=== PATIENT | male | born 1950 | race Caucasian/White ===

== ENCOUNTER → 2017-03-15 | Outpatient (CLI) | payer OTHER ==
[~2017-03-15] VITALS: Ht 180.3 cm; Wt 110.1 kg
[2017-03-15 14:55] VITALS: BP 143/84; PULSE 69; Ht 180.3 cm; Wt 110.1 kg
== END | disposition home or self-care (01) ==
LOC: C.NEUR 14:20
PROVIDERS: ATTEND Internal Medicine Pulmonary Disease
DX: G47.33 Obstructive sleep apnea (adult) (pediatric) (principal); I10 Essential (primary) hypertension; R05 Cough

== ENCOUNTER → 2017-06-20 | Outpatient (CLI) | payer BC ==
[2017-06-20 13:55] LABS: BASO % 0.8 %; BASO ABS # 0.05 K/uL (0-0.2); EOS % 2.7 %; EOS ABS # 0.17 K/uL (0-0.5); HEMOGLOBIN 16.3 g/dL (14.0-18.0); IG# 0.07 K/uL (0.00-0.02); LYMPH % 30.2 %; LYMPH ABS # 1.93 K/uL (1.2-3.4); MEAN CELL VOLUME 96.6 fL (80-100); MEAN CORPUSCULAR HGB CONC 36.2 g/dl (32-36); MEAN PLATELET VOLUME 11.4 fL (7.4-10.4); MONO % 9.7 %; MONO ABS # 0.62 K/uL (0.11-0.59); NEUT % 55.5 %; NEUT ABS # 3.56 K/uL (1.4-6.5); PLATELET COUNT 183 K/uL (130-400); RED CELL DISTRIBUTION WIDTH CV 12.9 % (11.5-14.5); RED CELL DISTRIBUTION WIDTH SD 44.4 fL (36.4-46.3)
[2017-06-20 14:34] LABS: HEMOGLOBIN A1C 5.8 % (4.5-5.6)
[2017-06-20 15:00] LABS: ALT/SGPT 72 U/L (12-78); AST/SGOT 26 U/L (15-37); BLOOD UREA NITROGEN 20 mg/dl (7-18); CALCIUM 8.8 mg/dl (8.5-10.1); CARBON DIOXIDE 28 mmol/L (21-32); CREATININE 1.14 mg/dl (0.60-1.40); GLUCOSE 142 mg/dl (70-99); POTASSIUM 3.5 mmol/L (3.5-5.1); SODIUM 137 mmol/L (136-145)
[2017-06-20 15:10] LABS: ALKALINE PHOSPHATASE 40 U/L (45-117); CHOLESTEROL 182 mg/dl (0-200); LDL CHOLESTEROL CALCULATED 105 mg/dl; TOTAL PROTEIN 7.6 gm/dl (6.4-8.2)
== END | disposition home or self-care (01) ==
LOC: C.LABBC 09:27
PROVIDERS: ATTEND Internal Medicine
DX: Z12.5 Encounter for screening for malignant neoplasm of prostate (principal); I10 Essential (primary) hypertension; E78.1 Pure hyperglyceridemia; R73.01 Impaired fasting glucose; G47.33 Obstructive sleep apnea (adult) (pediatric)

== ENCOUNTER → 2017-07-12 | Outpatient (CLI) | payer BC ==
[2017-07-12 13:15] LABS: BASO % 0.9 %; BASO ABS # 0.05 K/uL (0-0.2); EOS % 3.9 %; EOS ABS # 0.21 K/uL (0-0.5); HEMATOCRIT 44.2 % (42-52); HEMOGLOBIN 16.1 g/dL (14.0-18.0); IG# 0.02 K/uL (0.00-0.02); LYMPH % 35.2 %; LYMPH ABS # 1.88 K/uL (1.2-3.4); MEAN CELL VOLUME 95.1 fL (80-100); MEAN CORPUSCULAR HEMOGLOBIN 34.6 pg (25-34); MEAN CORPUSCULAR HGB CONC 36.4 g/dl (32-36); MEAN PLATELET VOLUME 11.1 fL (7.4-10.4); MONO % 9.2 %; MONO ABS # 0.49 K/uL (0.11-0.59); NEUT % 50.4 %; NEUT ABS # 2.69 K/uL (1.4-6.5); PLATELET COUNT 182 K/uL (130-400); RED CELL DISTRIBUTION WIDTH CV 12.5 % (11.5-14.5); RED CELL DISTRIBUTION WIDTH SD 42.7 fL (36.4-46.3); WHITE BLOOD COUNT 5.34 K/uL (4.8-10.8)
[2017-07-12 13:57] LABS: HEMOGLOBIN A1C 5.7 % (4.5-5.6)
[2017-07-12 14:09] LABS: ALBUMIN 4.2 gm/dl (3.4-5.0); ALT/SGPT 58 U/L (12-78); BLOOD UREA NITROGEN 17 mg/dl (7-18); CALCIUM 9.2 mg/dl (8.5-10.1); CARBON DIOXIDE 28 mmol/L (21-32); CHOLESTEROL 150 mg/dl (0-200); CREATININE 1.04 mg/dl (0.60-1.40); GLUCOSE 133 mg/dl (70-99); POTASSIUM 3.6 mmol/L (3.5-5.1); SODIUM 135 mmol/L (136-145)
[2017-07-12 14:14] LABS: ALKALINE PHOSPHATASE 39 U/L (45-117); AST/SGOT 27 U/L (15-37); LDL CHOLESTEROL CALCULATED 84 mg/dl; TOTAL PROTEIN 7.3 gm/dl (6.4-8.2)
== END | disposition home or self-care (01) ==
LOC: C.LABBC 09:33
PROVIDERS: ATTEND Internal Medicine
DX: G47.33 Obstructive sleep apnea (adult) (pediatric) (principal); I10 Essential (primary) hypertension; R73.01 Impaired fasting glucose; E78.1 Pure hyperglyceridemia; Z12.5 Encounter for screening for malignant neoplasm of prostate; N52.9 Male erectile dysfunction, unspecified

== ENCOUNTER 2019-12-14 13:01 | Inpatient (IN) ==
[2019-12-14] MEDS ORDERED: VANCOMYCIN CONSULT ACTIVE PRN (15:12)
[2019-12-14] MEDS ORDERED: VANCOMYCIN HCL 2,000 MG in SODIUM CHLORIDE 0.9% 500 ML IV ONE (15:12)
[2019-12-14] MEDS ORDERED: SODIUM CHLORIDE 0.9% 1000ML 2,000 ML IV ONE (15:14)
--- NOTE | 2019-12-14 15:21 | Emergency Department Note ---
History of Present Illness General Chief complaint: Skin Problem Stated complaint: ABCESS ON BACK History of Present Illness This patient is a 69-year-old male who presents the emergency department ambulatory for evaluation of pain, redness, swelling and drainage from the back that he noticed 2 days ago. He was seen in urgent care. He was told that this was likely an abscess. He was put on Keflex, which she has been taking for the last day with no improvement. He is also felt febrile. He did not take his temperature at home. He has not been taking anything for discomfort. Tetanus shot is up-to-date. He denies any systemic symptoms such as nausea or vomiting. No headache. No body aches. Home Medications Home Medications Medication Instructions Recorded Confirmed Type lisinopril 20 mg tablet 20 mg PO BID #180 tab 01/22/19 12/14/19 Rx cetirizine 10 mg capsule 10 mg PO DAILY PRN #90 cap 04/20/19 12/14/19 History epinephrine 0.3 mg/0.3 mL 0.3 mg IM Q10M PRN #2 ea 05/04/19 12/14/19 Rx injection, auto-injector amlodipine 5 mg tablet 5 mg PO DAILY #90 tab 09/14/19 12/14/19 Rx indapamide 1.25 mg tablet 1.25 mg PO DAILY #90 tab 09/14/19 12/14/19 Rx atorvastatin 10 mg tablet 10 mg PO DAILY #90 tab 10/02/19 12/14/19 Rx ceftriaxone 1 gm IV DAILY #12 ea 12/18/19 Rx Allergies Allergy/AdvReac Type Severity Reaction Status Date / Time Penicillins Allergy hives (?) Verified 12/14/19 15:00 sulfamethoxazole AdvReac Intermediate SEVERE GI Verified 12/14/19 15:00 [From Bactrim] UPSET trimethoprim [From Bactrim] AdvReac Intermediate SEVERE GI Verified 12/14/19 15:00 UPSET Past Med/Surg History Medical History Bilateral inguinal hernia Diverticulosis Eczema Hypertension Hypertriglyceridemia Hypertriglyceridemia Obstructive sleep apnea Surgical History H/O Achilles tendon repair H/O cataract removal with insertion of prosthetic lens Family History Uncle Myocardial infarction Mother , age 60 Breast cancer Diverticulitis Cancer Hypertension Pancreatic neoplasm Father , age 39 Cancer Prostate cancer Social History Preferred Language: Arabic Communication Ability: Effective Visual Impairment: No Limitations Hearing Ability: Normal Video Poker Floorman Required: No Beliefs That Will Affect Care: None marital status: Current Living Situation: Spouse current occupational status: retired Feels Safe at Home: Yes Smoking Status: Never smoker Hx Alcohol Use: Yes Alcohol type: beer and hard liquor Hx Substance Use: No Childhood Exposure to Second-Hand Smoke: Yes caffeine: Yes Dental Care, Regularly: Yes Physical Activity Frequency: Daily Seatbelt Use: always Sunscreen Use: Yes Review of Systems A total of 10 systems reviewed and were otherwise negative Physical Exam Vital Signs Vital Signs - 24 hr 12/14/19 13:03 12/14/19 14:35 Temperature 38.8 C H Temperature Source Oral Pulse Rate 94 H Pulse Rate [Apical] 88 Respiratory Rate 20 18 Respiratory Effort / Characteristics Non-Labored Spontaneous Respiratory Depth Normal Respiratory Pattern Regular Blood Pressure 160/79 H Blood Pressure [Left Arm] 155/89 H Blood Pressure Mean 106 Blood Pressure Mean [Left Arm] 111 Pulse Oximetry 97 97 Oxygen Delivery Method Room Air Room Air Sepsis Recent Fever Within 48 Hours Yes Sepsis Action Taken by Nursing No Action Required Constitutional WD/WN, vitals as above Eyes EOM intact bilaterally ENMT external ear and nose normal, oropharynx normal Neck trachea midline Respiratory normal respiratory effort, lungs clear to auscultation Cardiovascular RRR, no murmur, no edema Gastrointestinal (Abdomen) normal bowel sounds, soft, nontender, no hepatosplenomegaly Musculoskeletal no cyanosis or clubbing, extremities motor strength 5/5 Skin 4 cm area of necrosis noted to the left scapular region with surrounding induration and erythema. No active drainage. Neurologic Alert and oriented x3. No focal motor deficits. Psychiatric Acting appropriately Course Course Patient was seen and examined Vital signs including blood pressure were reviewed medications list was verified with patient Labs were obtained, and a saline lock was established Medications ordered. Imaging performed and reviewed. The patient was updated. He voiced understanding. He was comfortable with the plan. The case was discussed with the hospitalist. They kindly agreed to evaluate the patient for further work-up. Administered Medications Discontinued Medications Acetaminophen (Tylenol) 650 mg PO Q4H PRN PRN Reason: pain/fever Stop: 01/14/20 01:44 Last Admin: 12/15/19 20:33 Dose: 650 mg Documented by: [id number] Admin: 12/15/19 11:07 Dose: 650 mg Documented by: [id number] Admin: 12/15/19 02:07 Dose: 650 mg Documented by: [id number] Atorvastatin Calcium (Lipitor) 10 mg PO DAILY [facility] Stop: 01/14/20 08:59 Last Admin: 12/18/19 08:49 Dose: 10 mg Documented by: [id number] Admin: 12/17/19 09:13 Dose: 10 mg Documented by: [id number] Admin: 12/16/19 08:35 Dose: 10 mg Documented by: [id number] Admin: 12/15/19 08:57 Dose: Not Given Documented by: [id number] Cetirizine HCl (Zyrtec) 10 mg PO NOW ONE Stop: 12/14/19 20:19 Last Admin: 12/14/19 20:24 Dose: 10 mg Documented by: [id number] Cetirizine HCl (Zyrtec) 10 mg PO DAILY PRN PRN Reason: SEASONAL ALLERGIES Stop: 01/14/20 01:44 Last Admin: 12/17/19 21:44 Dose: 10 mg Documented by: [id number] Admin: 12/16/19 21:35 Dose: 10 mg Documented by: [id number] Admin: 12/15/19 22:34 Dose: 10 mg Documented by: [id number] Enoxaparin Sodium (Lovenox) 40 mg SQ QAM [facility] Stop: 01/15/20 15:59 Last Admin: 12/18/19 08:49 Dose: Not Given Documented by: [id number] Admin: 12/17/19 09:13 Dose: 40 mg Documented by: [id number] Admin: 12/16/19 16:38 Dose: 40 mg Documented by: [id number] Vancomycin HCl 2,000 mg/ (Sodium Chloride) 540 mls @ 200 mls/hr IV NOW ONE Stop: 12/14/19 17:53 Last Infusion: 12/14/19 18:48 Dose: 0 mls/hr Documented by: [id number] Admin: 12/14/19 15:50 Dose: 200 mls/hr Documented by: [id number] Sodium Chloride (Nss 1000ml) 2,000 mls @ 999 mls/hr IV .Q2H1M ONE Stop: 12/14/19 17:14 Last Infusion: 12/14/19 18:48 Dose: 0 mls/hr Documented by: [id number] Admin: 12/14/19 15:50 Dose: 999 mls/hr Documented by: [id number] Vancomycin HCl 1,500 mg/ (Sodium Chloride) 530 mls @ 200 mls/hr IV Q12H [facility]; Protocol Stop: 12/22/19 05:59 Last Infusion: 12/15/19 08:14 Dose: 0 mls/hr Documented by: [id number] Admin: 12/15/19 05:34 Dose: 200 mls/hr Documented by: [id number] Aztreonam 2,000 mg/ Dextrose 110 mls @ 100 mls/hr IV Q8H [facility]; Protocol Stop: 12/22/19 01:59 Last Infusion: 12/16/19 02:10 Dose: 0 mls/hr Documented by: [id number] Admin: 12/16/19 01:04 Dose: 100 mls/hr Documented by: [id number] Infusion: 12/15/19 20:03 Dose: 0 mls/hr Documented by: [id number] Admin: 12/15/19 18:36 Dose: 100 mls/hr Documented by: [id number] Infusion: 12/15/19 11:33 Dose: 0 mls/hr Documented by: [id number] Admin: 12/15/19 10:21 Dose: 100 mls/hr Documented by: [id number] Infusion: 12/15/19 04:13 Dose: 0 mls/hr Documented by: [id number] Admin: 12/15/19 03:07 Dose: 100 mls/hr Documented by: [id number] Potassium Chloride/Sodium Chloride (Normal Saline W/20 Meq Kcl) 20 meq in 1,000 mls @ 125 mls/hr IV .Q8H [facility] Stop: 01/14/20 01:59 Last Infusion: 12/16/19 13:28 Dose: 0 mls/hr Documented by: [id number] Admin: 12/16/19 09:58 Dose: 125 mls/hr Documented by: [id number] Infusion: 12/16/19 09:58 Dose: 125 mls/hr Documented by: [id number] Infusion: 12/16/19 06:42 Dose: 125 mls/hr Documented by: [id number] Infusion: 12/16/19 02:10 Dose: 125 mls/hr Documented by: [id number] Infusion: 12/16/19 01:07 Dose: 0 mls/hr Documented by: [id number] Admin: 12/16/19 01:04 Dose: 125 mls/hr Documented by: [id number] Infusion: 12/16/19 01:04 Dose: 125 mls/hr Documented by: [id number] Admin: 12/15/19 18:36 Dose: 125 mls/hr Documented by: [id number] Infusion: 12/15/19 18:36 Dose: 125 mls/hr Documented by: [id number] Infusion: 12/15/19 14:34 Dose: 125 mls/hr Documented by: [id number] Admin: 12/15/19 11:03 Dose: 125 mls/hr Documented by: [id number] Infusion: 12/15/19 11:03 Dose: 125 mls/hr Documented by: [id number] Admin: 12/15/19 03:07 Dose: 125 mls/hr Documented by: [id number] Vancomycin HCl 1,500 mg/ (Sodium Chloride) 530 mls @ 200 mls/hr IV Q16H [facility]; Protocol Stop: 12/22/19 21:59 Last Infusion: 12/16/19 15:57 Dose: 0 mls/hr Documented by: [id number] Admin: 12/16/19 14:46 Dose: 200 mls/hr Documented by: [id number] Infusion: 12/16/19 00:49 Dose: 0 mls/hr Documented by: [id number] Admin: 12/15/19 22:10 Dose: 200 mls/hr Documented by: [id number] Cefazolin Sodium (Ancef 2000mg) 2,000 mg in 15 mls @ 3.75 mls/min IV Q8H [facility] Stop: 12/30/19 15:29 Last Admin: 12/18/19 07:34 Dose: 3.75 mls/min Documented by: [id number] Admin: 12/17/19 23:22 Dose: 3.75 mls/min Documented by: [id number] Admin: 12/17/19 15:25 Dose: 3.75 mls/min Documented by: [id number] Admin: 12/17/19 07:38 Dose: 3.75 mls/min Documented by: [id number] Admin: 12/17/19 00:00 Dose: 3.75 mls/min Documented by: [id number] Admin: 12/16/19 16:00 Dose: 3.75 mls/min Documented by: [id number] Ceftriaxone Sodium 2,000 mg/ (Dextrose) 70 mls @ 100 mls/hr IV DAILY [facility]; Protocol Stop: 01/01/20 11:59 Last Infusion: 12/18/19 14:39 Dose: 0 mls/hr Documented by: [id number] Admin: 12/18/19 13:44 Dose: 100 mls/hr Documented by: [id number] Indapamide (Lozol) 1.25 mg PO DAILY [facility] Stop: 01/16/20 08:59 Last Admin: 12/18/19 08:49 Dose: Not Given Documented by: [id number] Admin: 12/17/19 09:12 Dose: Not Given Documented by: [id number] Ioversol (Optiray 320 100ml) 93 ml IV ONCE PRN PRN Reason: Interaction Checking Stop: 12/18/19 17:20 Last Admin: 12/14/19 17:21 Dose: 93 ml Documented by: [id number] Ketorolac Tromethamine (Toradol) 30 mg IV NOW ONE Stop: 12/14/19 20:19 Last Admin: 12/14/19 20:24 Dose: 30 mg Documented by: [id number] Lisinopril (Zestril) 20 mg PO BID [facility] Stop: 01/15/20 20:59 Last Admin: 12/18/19 08:49 Dose: Not Given Documented by: [id number] Admin: 12/17/19 20:43 Dose: 20 mg Documented by: [id number] Admin: 12/17/19 09:12 Dose: Not Given Documented by: [id number] Admin: 12/16/19 21:25 Dose: Not Given Documented by: [id number] Psyllium Hydrophilic Mucilloid (Metamucil) 1 pkt PO QAM [facility] Stop: 01/14/20 10:29 Last Admin: 12/15/19 11:23 Dose: Not Given Documented by: [id number] Psyllium Hydrophilic Mucilloid (Metamucil) 1 pkt PO HS [facility] Stop: 01/14/20 20:59 Last Admin: 12/17/19 20:43 Dose: 1 pkt Documented by: [id number] Admin: 12/16/19 21:25 Dose: 1 pkt Documented by: [id number] Admin: 12/15/19 20:34 Dose: 1 pkt Documented by: [id number] Simethicone (Mylicon) 40 mg PO Q6H PRN PRN Reason: Flatulence Stop: 01/15/20 16:04 Last Admin: 12/17/19 00:00 Dose: 40 mg Documented by: [id number] Admin: 12/16/19 16:38 Dose: 40 mg Documented by: [id number] Medical Decision Making Medical Records Attestation: I reviewed the patient's medical records. Home Medications Current Medication List: was personally reviewed by me Laboratory Data Attestation: I reviewed the patient's lab results. Result diagrams: 12/18/19 05:19 12/18/19 05:19 Lab Results 12/14/19 12/14/19 12/14/19 Range/Units 16:15 16:15 16:15 WBC 12.32 H (4.8-10.8) K/uL RBC 4.83 (4.7-6.1) M/uL Hgb 16.3 (14.0-18.0) g/dL Hct 45.3 (42-52) % MCV 93.8 (80-100) fL MCH 33.7 (25-34) pg MCHC 36.0 (32-36) g/dL RDW Std Deviation 43.0 (36.4-46.3) fL RDW Coeff of Brittnee 12.6 (11.5-14.5) % Plt Count 151 (130-400) K/uL MPV 11.4 H (7.4-10.4) fL Immature Gran % (Auto) 0.3 % Neut % (Auto) 81.6 % Lymph % (Auto) 9.1 % [place] % (Auto) 8.4 % Eos % (Auto) 0.4 % Baso % (Auto) 0.2 % Neut # (Auto) 10.05 H (1.4-6.5) K/uL Lymph # (Auto) 1.12 L (1.2-3.4) K/uL [place] # (Auto) 1.04 H (0.11-0.59) K/uL Eos # (Auto) 0.05 (0-0.5) K/uL Baso # (Auto) 0.02 (0-0.2) K/uL Immature Gran # (Auto) 0.04 H (0.00-0.02) K/uL PT 11.1 (9.0-12.0) Seconds INR 1.1 (0.9-1.1) Sodium 134 L (136-145) mmol/L Potassium 3.3 L (3.5-5.1) mmol/L Chloride 100 (98-107) mmol/L Carbon Dioxide 26 (21-32) mmol/L Anion Gap 8.0 (3-11) BUN 16 (7-18) mg/dl Creatinine 1.17 (0.6-1.4) mg/dl Est Cr Clr Drug Dosing 75.6 ml/min Est GFR ( Amer) 74.3 Est GFR (Non-Af Amer) 64.1 BUN/Creatinine Ratio 13.4 (10-20) Glucose 103 H (70-99) mg/dl Lactate (0.4-2.0) mmol/L Calcium 9.0 (8.5-10.1) mg/dl Total Bilirubin 1.9 H (0.2-1) mg/dl AST 23 (15-37) U/L ALT 51 (12-78) U/L Alkaline Phosphatase 53 (45-117) U/L Total Protein 8.0 (6.4-8.2) gm/dl Albumin 4.2 (3.4-5.0) gm/dl Globulin 3.8 (2.5-4.0) gm/dl Albumin/Globulin Ratio 1.1 (0.9-2) Procalcitonin (0-0.5) ng/ml 12/14/19 12/14/19 Range/Units 16:15 16:26 WBC (4.8-10.8) K/uL RBC (4.7-6.1) M/uL Hgb (14.0-18.0) g/dL Hct (42-52) % MCV (80-100) fL MCH (25-34) pg MCHC (32-36) g/dL RDW Std Deviation (36.4-46.3) fL RDW Coeff of Brittnee (11.5-14.5) % Plt Count (130-400) K/uL MPV (7.4-10.4) fL Immature Gran % (Auto) % Neut % (Auto) % Lymph % (Auto) % [place] % (Auto) % Eos % (Auto) % Baso % (Auto) % Neut # (Auto) (1.4-6.5) K/uL Lymph # (Auto) (1.2-3.4) K/uL [place] # (Auto) (0.11-0.59) K/uL Eos # (Auto) (0-0.5) K/uL Baso # (Auto) (0-0.2) K/uL Immature Gran # (Auto) (0.00-0.02) K/uL PT (9.0-12.0) Seconds INR (0.9-1.1) Sodium (136-145) mmol/L Potassium (3.5-5.1) mmol/L Chloride (98-107) mmol/L Carbon Dioxide (21-32) mmol/L Anion Gap (3-11) BUN (7-18) mg/dl Creatinine (0.6-1.4) mg/dl Est Cr Clr Drug Dosing ml/min Est GFR ( Amer) Est GFR (Non-Af Amer) BUN/Creatinine Ratio (10-20) Glucose (70-99) mg/dl Lactate 1.3 (0.4-2.0) mmol/L Calcium (8.5-10.1) mg/dl Total Bilirubin (0.2-1) mg/dl AST (15-37) U/L ALT (12-78) U/L Alkaline Phosphatase (45-117) U/L Total Protein (6.4-8.2) gm/dl Albumin (3.4-5.0) gm/dl Globulin (2.5-4.0) gm/dl Albumin/Globulin Ratio (0.9-2) Procalcitonin < 0.05 (0-0.5) ng/ml Imaging Data Attestation: I personally reviewed and interpreted this imaging study as follows: Radiologist's Impression: CT thorax with contrast A cutaneous marker has been placed in the left upper back at the site of interest. There is minimal induration of the subcutaneous fat at this site which extends laterally toward the mid axillary region. Correlate clinically for evidence of cellulitis. No organized fluid collection or subcutaneous gas is seen. 2. There is no airspace consolidation or pleural effusion. 3. Hepatic steatosis and cholelithiasis. 4. Additional findings as above. ACT 112: Negative or not required by law. Electronically signed by: Marcell García M.D. 12/14/2019 5:35 PM Dictated: 12/14/[id number] Transcribed: 12/14/[id number] MDM Narrative Differential diagnosis: Cellulitis, abscess, necrosis, insect bite, sepsis, among others This patient is a 69-year-old male who presents the emergency department complaining of pain, induration and redness to the back for the last several days. On exam, he has cellulitis with a central area of necrosis. The area is suspicious for a possible spider bite. The patient did have a fever. Mild leukocytosis noted. I did not feel comfortable sending the patient home as he is already been on Keflex with no response. The patient was in agreement. He will be admitted for IV antibiotics and further treatment. Impression & Plan MSSA bacteremia, Diverticulosis of colon, Spider bite wound Discharge Plan Visit Data *Final* Discharge Date/Time: 12/15/19 01:08 Chief Complaint: Skin Problem Stated Complaint: ABCESS ON BACK ED Provider: Mele Falcon ED Midlevel Provider: Doris Barahona Discharge Problem: MSSA bacteremia, Diverticulosis of colon, Spider bite wound Patient Disposition: Admitted As Inpatient Discharge Instructions Interventions: ED Discharge Assessment Last Done: 12/15/19 01:08
[2019-12-14 16:38] LABS: Basophils # (auto) 0.02 K/uL (0-0.2); Basophils % (auto) 0.2 %; Eosinophils # (auto) 0.05 K/uL (0-0.5); Eosinophils % (auto) 0.4 %; Hematocrit (blood only) 45.3 % (42-52); Hemoglobin 16.3 g/dL (14.0-18.0); Immature Granulocytes # (auto) 0.04 K/uL (0.00-0.02); Immature Granulocytes % (auto) 0.3 %; Lymphocytes # (auto) 1.12 K/uL (1.2-3.4); Lymphocytes % (auto) 9.1 %; Mean Corpuscular Hemoglobin 33.7 pg (25-34); Mean Corpuscular Volume 93.8 fL (80-100); Mean Platelet Volume 11.4 fL (7.4-10.4); Monocytes # (auto) 1.04 K/uL (0.11-0.59); Monocytes % (auto) 8.4 %; Neutrophils # (auto) 10.05 K/uL (1.4-6.5); Neutrophils % (auto) 81.6 %; Platelet Count 151 K/uL (130-400); RDW Coefficient of Variation 12.6 % (11.5-14.5); Red Blood Count 4.83 M/uL (4.7-6.1); White Blood Count 12.32 K/uL (4.8-10.8)
[2019-12-14 16:47] LABS: INR 1.1 (0.9-1.1); Prothrombin Time 11.1 Seconds (9.0-12.0)
[2019-12-14 16:54] LABS: Albumin Level 4.2 gm/dl (3.4-5.0); BUN Creatinine Ratio 13.4 (10-20); Creatinine Clr Calc Pharmacy 75.6 ml/min; Est GFR (African American) 74.3; Est GFR (Non-African American) 64.1; Potassium 3.3 mmol/L (3.5-5.1)
[2019-12-14 16:57] LABS: Albumin Globulin Ratio 1.1 (0.9-2); Bilirubin,Total 1.9 mg/dl (0.2-1); Globulin 3.8 gm/dl (2.5-4.0)
[2019-12-14] MEDS ORDERED: IOVERSOL 100ml IV PRN (17:21)
--- NOTE | 2019-12-14 17:36 | CT Scan Report ---
CT SCAN OF THE CHEST WITH IV CONTRAST CLINICAL HISTORY: Swelling and discoloration in the left upper back. COMPARISON STUDY: No priors. TECHNIQUE: Following the IV administration of 93 cc of Optiray 320, CT scan of the thorax was perform ed from the thoracic inlet to the upper abdomen. Images are reviewed in the axial, sagittal, and emeterio nal planes. IV contrast was administered without complication. A dose lowering technique was utilize d adhering to the principles of ALARA. CT DOSE: 627.75 mGy.cm FINDINGS: Thyroid: Imaged portions of the thyroid gland are normal in size and attenuation. Thoracic aorta: The thoracic aorta is normal in caliber and demonstrates 4-vessel variant arch anatom y. No dissection is seen. Pulmonary vasculature: The pulmonary trunk is normal in caliber. There are no filling defects identif ied in the central pulmonary vessels to indicate pulmonary embolus. Note that this examination was no t protocoled for evaluation of the pulmonary arteries. Heart: The heart is normal in size and without pericardial effusion. Lungs and pleural spaces: Evaluation of the lung parenchyma is modestly degraded by motion artifact. There is no airspace consolidation or pleural effusion. The trachea and central airways are clear. Sc attered calcified granulomas are incidentally noted. Mediastinum: There is no mediastinal lymphadenopathy. Jaylyn: Clear. Axillae: There is no axillary lymphadenopathy. Upper abdomen: There is a small hiatal hernia. A large calcified gallstone is partially visualized. T here is evidence of hepatic steatosis. Skeletal structures: Mild degenerative change is noted in the shoulders and thoracic spine. No lytic or blastic bony lesions are seen. Soft tissues: A cutaneous marker at the site of interest has been placed in the left upper back. Ther e is minimal induration of the subcutaneous fat at this level which extends laterally towards the mid axilla. No subcutaneous gas or organized fluid collection is seen. IMPRESSION: 1. A cutaneous marker has been placed in the left upper back at the site of interest. There is minima l induration of the subcutaneous fat at this site which extends laterally toward the mid axillary reg ion. Correlate clinically for evidence of cellulitis. No organized fluid collection or subcutaneous g as is seen. 2. There is no airspace consolidation or pleural effusion. 3. Hepatic steatosis and cholelithiasis. 4. Additional findings as above. ACT 112: Negative or not required by law. Electronically signed by: Marcell García M.D. 12/14/2019 5:35 PM
[2019-12-14] MEDS ORDERED: CETIRIZINE HCL 10 MG TABLET PO ONE (20:18)
[2019-12-14] MEDS ORDERED: KETOROLAC 30 MG/ML VIAL IV ONE (20:18)
--- NOTE | 2019-12-14 21:13 | History & Physical Report ---
Date of Service December 14, 2019 Assessment & Plan (1) Cellulitis: Cellulitis/central necrosis/spider bite wound/sepsis- Patient with systemic manifestations with elevated temperature, elevated white blood cell count, fatigue and generalized myalgias. Observed heart rate in room by me 106. Skin lesion has all the manifestations of a spider bite. Place on vancomycin IV and aztreonam IV. Acetaminophen 650 mg p.o. every 6 hours PRN mild pain or temperature. Zofran 4 mg IV every 6 hours PRN NSS + KCl 20 mEq at 125 mils per hour Consult general surgery to follow for I&D and or debridement if needed. Verify that tetanus shot is up to date. Present on Admission?: Yes (2) Spider bite wound: See above Present on Admission?: Yes (3) Hypertriglyceridemia: Continue atorvastatin 10 mg p.o. daily Present on Admission?: Yes (4) HTN (hypertension): Hold indapamide and lisinopril. With hold parameters continue amlodipine Present on Admission?: Yes (5) Obstructive sleep apnea: Respiratory therapy will be consulted as needed. Present on Admission?: Yes History of Present Illness Chief Complaint: The patient presents to the emergency department with worsening area of pain, redness, swelling and drainage from his back area that he noticed 2 days ago. Primary Care Provider: Singh Alaniz MD The patient is a 69-year-old male with a past medical history including diverticulosis, obstructive sleep apnea, impaired fasting glucose, hypertriglyceridemia and hypertension. He was seen early acute care facility and placed on Keflex for what he was told was likely an abscess on his back. With the persistent worsening of symptoms, he presented to the emergency department for assessment. Work-up in ED included a CT scan which was consistent with a cellulitis without any area amenable to drainage. Patient reports that he thought he may have been bit by a spider. He has not had any recent travels or sick exposures. He feels generally ill, with muscle aches and fatigue. Allergies Allergy/AdvReac Type Severity Reaction Status Date / Time Penicillins Allergy hives (?) Verified 12/14/19 15:00 sulfamethoxazole AdvReac Intermediate SEVERE GI Verified 12/14/19 15:00 [From Bactrim] UPSET trimethoprim [From Bactrim] AdvReac Intermediate SEVERE GI Verified 12/14/19 15:00 UPSET Home Medications Home Medications Medication Instructions Recorded Confirmed Type lisinopril 20 mg tablet 20 mg PO BID #180 tab 01/22/19 12/14/19 Rx cetirizine 10 mg capsule 10 mg PO DAILY PRN #90 cap 04/20/19 12/14/19 History epinephrine 0.3 mg/0.3 mL 0.3 mg IM Q10M PRN #2 ea 05/04/19 12/14/19 Rx injection, auto-injector amlodipine 5 mg tablet 5 mg PO DAILY #90 tab 09/14/19 12/14/19 Rx indapamide 1.25 mg tablet 1.25 mg PO DAILY #90 tab 09/14/19 12/14/19 Rx atorvastatin 10 mg tablet 10 mg PO DAILY #90 tab 10/02/19 12/14/19 Rx Past Med/Surg History Medical History Bilateral inguinal hernia Diverticulosis Eczema Hypertension Hypertriglyceridemia Hypertriglyceridemia Obstructive sleep apnea Surgical History H/O Achilles tendon repair H/O cataract removal with insertion of prosthetic lens Family History Uncle Myocardial infarction Mother , age 60 Breast cancer Diverticulitis Cancer Hypertension Pancreatic neoplasm Father , age 39 Cancer Prostate cancer Social History Preferred Language: Austrian Communication Ability: Effective Visual Impairment: No Limitations Hearing Ability: Normal Sustain Engineer Required: No marital status: Current Living Situation: Spouse current occupational status: retired Feels Safe at Home: Yes Smoking Status: Never smoker Hx Alcohol Use: Yes (2-3 beers a week) Alcohol type: beer and hard liquor Hx Substance Use: No Childhood Exposure to Second-Hand Smoke: Yes caffeine: Yes Dental Care, Regularly: Yes Physical Activity Frequency: Daily Seatbelt Use: always Sunscreen Use: Yes Review of Systems Review of Systems: The patient denies chest pain, palpitations, shortness of breath, dyspnea on exertion, cough, lower extremity swelling, sore throat, nausea, vomiting, diarrhea , constipation, abdominal pain, pelvic pain, blood in urine or stool, dysuria, urinary frequency or urgency, lightheadedness, dizziness, headache, memory loss, loss of consciousness, imbalance, focal or generalized weakness, numbness or tingling in arms or legs, neck pain, or night sweats. The review of systems is otherwise negative other than for that already noted above, and at least 10 systems have been reviewed. Physical Exam Physical Exam: The patient is awake, alert and oriented 3, well developed and well nourished, normocephalic and atraumatic, lying in bed and in no acute distress. HEENT--PERRL, EOMI, mucous membranes and oropharynx dry. Neck--supple. No JVD. No bruits. Thyroid normal, trachea midline, no adenopathy. Heart--normal S1 and S2. No murmurs, rubs or gallops. Lungs--clear bilaterally, no respiratory distress, no accessory muscle use. Abdomen--normal bowel sounds and soft. Nontender. Nondistended. Extremities--no cyanosis or clubbing. No edema. There are good distal pulses b/l. Dermatologic--along the medial aspect of the left scapula, there is a 4 cm area of central necrosis, with doubled area of surrounding induration and erythema. Neurologic--cranial nerves II through XII grossly intact. Rheumatologic--normal range of motion. Psychiatric--normal affect. Results & Data Results & Data ([facility]) Vital Signs (Past 12 Hours) Vital Signs Temp Pulse Pulse Resp BP BP Pulse Ox 12/14/19 20:24 91 H 20 111/62 98 12/14/19 19:21 89 20 108/65 98 12/14/19 17:51 96 H 18 126/67 98 12/14/19 15:52 85 18 140/77 97 12/14/19 14:35 88 18 155/89 H 97 12/14/19 13:03 101.8 F H 94 H 20 160/79 H 97 Laboratory Results Laboratory Results WBC 12.32 K/uL (4.8-10.8) H 12/14/19 16:15 RBC 4.83 M/uL (4.7-6.1) 12/14/19 16:15 Hgb 16.3 g/dL (14.0-18.0) 12/14/19 16:15 Hct 45.3 % (42-52) 12/14/19 16:15 MCV 93.8 fL (80-100) 12/14/19 16:15 MCH 33.7 pg (25-34) 12/14/19 16:15 MCHC 36.0 g/dL (32-36) 12/14/19 16:15 RDW Std Deviation 43.0 fL (36.4-46.3) 12/14/19 16:15 RDW Coeff of Brittnee 12.6 % (11.5-14.5) 12/14/19 16:15 Plt Count 151 K/uL (130-400) 12/14/19 16:15 MPV 11.4 fL (7.4-10.4) H 12/14/19 16:15 Immature Gran % (Auto) 0.3 % 12/14/19 16:15 Neut % (Auto) 81.6 % 12/14/19 16:15 Lymph % (Auto) 9.1 % 12/14/19 16:15 [place] % (Auto) 8.4 % 12/14/19 16:15 Eos % (Auto) 0.4 % 12/14/19 16:15 Baso % (Auto) 0.2 % 12/14/19 16:15 Neut # (Auto) 10.05 K/uL (1.4-6.5) H 12/14/19 16:15 Lymph # (Auto) 1.12 K/uL (1.2-3.4) L 12/14/19 16:15 [place] # (Auto) 1.04 K/uL (0.11-0.59) H 12/14/19 16:15 Eos # (Auto) 0.05 K/uL (0-0.5) 12/14/19 16:15 Baso # (Auto) 0.02 K/uL (0-0.2) 12/14/19 16:15 Immature Gran # (Auto) 0.04 K/uL (0.00-0.02) H 12/14/19 16:15 PT 11.1 Seconds (9.0-12.0) 12/14/19 16:15 INR 1.1 (0.9-1.1) 12/14/19 16:15 Sodium 134 mmol/L (136-145) L 12/14/19 16:15 Potassium 3.3 mmol/L (3.5-5.1) L 12/14/19 16:15 Chloride 100 mmol/L (98-107) 12/14/19 16:15 Carbon Dioxide 26 mmol/L (21-32) 12/14/19 16:15 Anion Gap 8.0 (3-11) 12/14/19 16:15 BUN 16 mg/dl (7-18) 12/14/19 16:15 Creatinine 1.17 mg/dl (0.6-1.4) 12/14/19 16:15 Est Cr Clr Drug Dosing 75.6 ml/min 12/14/19 16:15 Est GFR ( Amer) 74.3 12/14/19 16:15 Est GFR (Non-Af Amer) 64.1 12/14/19 16:15 BUN/Creatinine Ratio 13.4 (10-20) 12/14/19 16:15 Glucose 103 mg/dl (70-99) H 12/14/19 16:15 Lactate 1.3 mmol/L (0.4-2.0) 12/14/19 16:26 Calcium 9.0 mg/dl (8.5-10.1) 12/14/19 16:15 Total Bilirubin 1.9 mg/dl (0.2-1) H 12/14/19 16:15 AST 23 U/L (15-37) 12/14/19 16:15 ALT 51 U/L (12-78) 12/14/19 16:15 Alkaline Phosphatase 53 U/L (45-117) 12/14/19 16:15 Total Protein 8.0 gm/dl (6.4-8.2) 12/14/19 16:15 Albumin 4.2 gm/dl (3.4-5.0) 12/14/19 16:15 Globulin 3.8 gm/dl (2.5-4.0) 12/14/19 16:15 Albumin/Globulin Ratio 1.1 (0.9-2) 12/14/19 16:15 Procalcitonin < 0.05 ng/ml (0-0.5) 12/14/19 16:15 Diagnostic Findings [facility], [place] [phone] CT Scan Report Patient: FRAN MARTINEZ Date: 12/14/19 MR#: [id number]: [id number] Acct ID:[id number]: [facility] [address] Zip: [place] [id number] Age: 69Location: ED Sex: M Room/Bed: Att Phy:Diagnosis: ABCESS ON BACK Tonie Phy: Singh Alaniz MDService Date: 12/14/19 Fam Phy:Interpreting Phy: Marcell García MD Admit Phy: Ordering Phy: Doris Barahona PA-C cc: ~ CT SCAN OF THE CHEST WITH IV CONTRAST CLINICAL HISTORY: Swelling and discoloration in the left upper back. COMPARISON STUDY: No priors. TECHNIQUE: Following the IV administration of 93 cc of Optiray 320, CT scan of the thorax was performed from the thoracic inlet to the upper abdomen. Images are reviewed in the axial, sagittal, and coronal planes. IV contrast was administered without complication. A dose lowering technique was utilized adhering to the principles of ALARA. CT DOSE: 627.75 mGy.cm FINDINGS: Thyroid: Imaged portions of the thyroid gland are normal in size and attenuation. Thoracic aorta: The thoracic aorta is normal in caliber and demonstrates 4- vessel variant arch anatomy. No dissection is seen. Pulmonary vasculature: The pulmonary trunk is normal in caliber. There are no filling defects identified in the central pulmonary vessels to indicate pulmonary embolus. Note that this examination was not protocoled for evaluation of the pulmonary arteries. Heart: The heart is normal in size and without pericardial effusion. Lungs and pleural spaces: Evaluation of the lung parenchyma is modestly degraded by motion artifact. There is no airspace consolidation or pleural effusion. The trachea and central airways are clear. Scattered calcified granulomas are incidentally noted. Mediastinum: There is no mediastinal lymphadenopathy. Jaylyn: Clear. Axillae: There is no axillary lymphadenopathy. Upper abdomen: There is a small hiatal hernia. A large calcified gallstone is partially visualized. There is evidence of hepatic steatosis. Skeletal structures: Mild degenerative change is noted in the shoulders and thoracic spine. No lytic or blastic bony lesions are seen. Soft tissues: A cutaneous marker at the site of interest has been placed in the left upper back. There is minimal induration of the subcutaneous fat at this level which extends laterally towards the mid axilla. No subcutaneous gas or organized fluid collection is seen. IMPRESSION: 1. A cutaneous marker has been placed in the left upper back at the site of interest. There is minimal induration of the subcutaneous fat at this site which extends laterally toward the mid axillary region. Correlate clinically for evidence of cellulitis. No organized fluid collection or subcutaneous gas is seen. 2. There is no airspace consolidation or pleural effusion. 3. Hepatic steatosis and cholelithiasis. 4. Additional findings as above. ACT 112: Negative or not required by law. Electronically signed by: Marcell García M.D. 12/14/2019 5:35 PM Dictated: 12/14/191728 Transcribed: 12/14/191728 Code Status & VTE Plan Code Status Full code VTE Prophylaxis Plan VTE Prophylaxis will be ordered: Yes PG Care Time/CCT Total # of Minutes Spent Total Time Spent with Patient: Total time spent is greater than 50% in c oordination of care (as documented) at patient's floor/unit and/or counseling patient: Coding Level of Care Code 35873 Initial Inpt Care Lvl 2 Diagnoses Cellulitis L03.90 Spider bite wound T63.301A Hypertriglyceridemia E78.1 HTN (hypertension) I10 Obstructive sleep apnea G47.33
--- NOTE | 2019-12-14 23:19 | Surgery Consultation ---
Date of Consultation December 14, 2019 Assessment & Plan (1) Cellulitis: -oral abx. have been unsuccessful -pt. has been admitted by hospitalists: -they have started IV abx. in the form of vancomycin -currently no drainable abscess -will follow while in hospital for developing abscess or tissue necrosis requiring debridement Supervising Physician Co-Signing Physician Notes Labs and imaging reviewed overnight, discussed with Shimon Maldonado who examined the patient. Agree no emergent surgical management was needed, and patient was admitted to the medicine service for treatment of his cellulitis and observation. I examined the patient today, see today's progress note for further details. History of Present Illness History of Present Illness 69 year old male noted that he believes he was bitten by a spider while in bed about 48-60 hours ago, although he admits he never saw it. Over the next 24 hours he noted the area of the bite (which was near the left posterior scapula) began to itch and he noted a small black eschar that has since enlarged. The area has ultimately became painful to palpation and he began to have fevers as high as 102. He notified his PCP who placed him on keflex (1st dose was taken this morning 9at least 48 hours after the bite). he continued to have fevers, so he came to the ED. In the ED, he was febrile and had a WBC of 12.3. A CT scan showed induration but no fluid collection of subcutaneous air concerning for abscess. At the time of my exam he was in no distress. Allergies Allergy/AdvReac Type Severity Reaction Status Date / Time Penicillins Allergy hives (?) Verified 12/14/19 15:00 sulfamethoxazole AdvReac Intermediate SEVERE GI Verified 12/14/19 15:00 [From Bactrim] UPSET trimethoprim [From Bactrim] AdvReac Intermediate SEVERE GI Verified 12/14/19 15:00 UPSET Home Medications Home Medications Medication Instructions Recorded Confirmed Type lisinopril 20 mg tablet 20 mg PO BID #180 tab 01/22/19 12/14/19 Rx cetirizine 10 mg capsule 10 mg PO DAILY PRN #90 cap 04/20/19 12/14/19 History epinephrine 0.3 mg/0.3 mL 0.3 mg IM Q10M PRN #2 ea 05/04/19 12/14/19 Rx injection, auto-injector amlodipine 5 mg tablet 5 mg PO DAILY #90 tab 09/14/19 12/14/19 Rx indapamide 1.25 mg tablet 1.25 mg PO DAILY #90 tab 09/14/19 12/14/19 Rx atorvastatin 10 mg tablet 10 mg PO DAILY #90 tab 10/02/19 12/14/19 Rx Patient History Medical History Bilateral inguinal hernia Diverticulosis Eczema Hypertension Hypertriglyceridemia Hypertriglyceridemia Obstructive sleep apnea Surgical History H/O Achilles tendon repair H/O cataract removal with insertion of prosthetic lens Family History Uncle Myocardial infarction Mother , age 60 Breast cancer Diverticulitis Cancer Hypertension Pancreatic neoplasm Father , age 39 Cancer Prostate cancer Social History Preferred Language: Syriac Communication Ability: Effective Visual Impairment: No Limitations Hearing Ability: Normal Extrusion Engineer Required: No Beliefs That Will Affect Care: None marital status: Current Living Situation: Spouse current occupational status: retired Feels Safe at Home: Yes Smoking Status: Never smoker Hx Alcohol Use: Yes Alcohol type: beer and hard liquor Hx Substance Use: No Childhood Exposure to Second-Hand Smoke: Yes caffeine: Yes Dental Care, Regularly: Yes Physical Activity Frequency: Daily Seatbelt Use: always Sunscreen Use: Yes Review of Systems Constitutional: + fever Eyes: no diplopia Ear, Nose, Mouth, Throat: no ear pain Respiratory: no cough and no dyspnea Cardiovascular: no chest pain Gastrointestinal: no abdominal pain and no nausea Genitourinary: no dysuria Musculoskeletal: no back pain Integumentary: + lesions (see HPI and PE) Neurologic: no localized weakness Physical Exam Physical Exam: Pt. has an area in the region of the left scapula with a circular eschar about 2 cm in diameter with an additional 1 -2 inch area of surrounding erythema. No palpable fluid collection noted. The area id warm and panful to palpation. no crepitus in soft tissue. Constitutional: well developed and well nourished; no acute distress Eyes: no conjunctival abnormality ENMT: Ears: no hearing impairment Neck: trachea midline Respiratory: normal respiratory effort, lungs clear to auscultation Cardiovascular: Rate/Rhythm: regular rate and regular rhythm Vessels: dorsalis pedis pulses present and radial pulses present Gastrointestinal (Abdomen): Percussion/Palpation: abdomen soft Musculoskeletal: no calf pain Skin: normal turgor Neurologic: moves all extremities Psychiatric: A+Ox3, euthymic affect Results & Data Vital Signs (Past 12 Hours) Vital Signs Temp Pulse Pulse Resp BP BP Pulse Ox 12/14/19 22:52 37.0 C 80 18 99/54 L 95 12/14/19 21:54 88 16 120/64 94 12/14/19 20:24 91 H 20 111/62 98 12/14/19 19:21 89 20 108/65 98 12/14/19 17:51 96 H 18 126/67 98 12/14/19 15:52 85 18 140/77 97 12/14/19 14:35 88 18 155/89 H 97 12/14/19 13:03 38.8 C H 94 H 20 160/79 H 97 PG Care Time/CCT Total # of Minutes Spent Total Time Spent with Patient: Total time spent is greater than 50% in coordination of care (as documented) at patient's floor/unit and/or counseling patient: Coding Level of Care Code 81586 Inpt Consult Level 5 Diagnoses Cellulitis L03.90
[2019-12-15] MEDS ORDERED: VANCOMYCIN CONSULT ACTIVE PRN (01:45)
[2019-12-15] MEDS ORDERED: ONDANSETRON INJ 2 MG/ML 2 ML VIAL IV PRN (01:45)
[2019-12-15] MEDS ORDERED: ACETAMINOPHEN 325 MG TAB PO PRN (01:59)
[2019-12-15] MEDS: ACETAMINOPHEN 325 MG TAB PO PRN ×3 (02:07→20:33)
[2019-12-15] MEDS: AZTREONAM 2,000 MG in DEXTROSE 5% 100 ML IV SCH ×3 (03:07→18:36)
[2019-12-15] MEDS: NSS + 20MEQ KCL 20 MEQ/1,000 ML BAG IV SCH ×3 (03:07→18:36)
[2019-12-15] MEDS ORDERED: VANCOMYCIN HCL 1,500 MG in SODIUM CHLORIDE 0.9% 500 ML IV SCH (06:00)
[2019-12-15 06:07] LABS: Basophils # (auto) 0.02 K/uL (0-0.2); Basophils % (auto) 0.2 %; Eosinophils # (auto) 0.08 K/uL (0-0.5); Eosinophils % (auto) 0.8 %; Hematocrit (blood only) 40.8 % (42-52); Hemoglobin 14.5 g/dL (14.0-18.0); Immature Granulocytes # (auto) 0.03 K/uL (0.00-0.02); Immature Granulocytes % (auto) 0.3 %; Lymphocytes # (auto) 1.76 K/uL (1.2-3.4); Lymphocytes % (auto) 17.8 %; Mean Corpuscular Hemoglobin 33.7 pg (25-34); Mean Corpuscular Hgb Conc 35.5 g/dL (32-36); Mean Corpuscular Volume 94.9 fL (80-100); Mean Platelet Volume 11.2 fL (7.4-10.4); Monocytes # (auto) 1.01 K/uL (0.11-0.59); Monocytes % (auto) 10.2 %; Neutrophils # (auto) 7.01 K/uL (1.4-6.5); Neutrophils % (auto) 70.7 %; Platelet Count 137 K/uL (130-400); RDW Coefficient of Variation 12.6 % (11.5-14.5); RDW Standard Deviation 43.4 fL (36.4-46.3); White Blood Count 9.91 K/uL (4.8-10.8)
[2019-12-15 06:22] LABS: INR 1.1 (0.9-1.1); Partial Thromboplastin Ratio 1.2; Partial Thromboplastin Time 32.4 Seconds (21.0-31.0); Prothrombin Time 11.9 Seconds (9.0-12.0)
[2019-12-15 06:44] LABS: Albumin Level 3.3 gm/dl (3.4-5.0); BUN Creatinine Ratio 12.9 (10-20); Calcium 7.9 mg/dl (8.5-10.1); Creatinine Clr Calc Pharmacy 70.8 ml/min; Est GFR (African American) 71.4; Est GFR (Non-African American) 61.6; Magnesium 1.9 mg/dl (1.8-2.4); Phosphorus 3.3 mg/dl (2.5-4.9); Potassium 3.5 mmol/L (3.5-5.1)
[2019-12-15 08:42] LABS: Albumin Level 3.3 gm/dl (3.4-5.0); Bilirubin Direct 0.3 mg/dl (0-0.2); Bilirubin,Total 2.2 mg/dl (0.2-1); Total Protein 6.5 gm/dl (6.4-8.2)
--- NOTE | 2019-12-15 08:42 | Surgery Progress Note ---
Date of Service December 15, 2019 Assessment & Plan (1) Spider bite wound: Patient here with presumed spider bite wounds His symptoms improving WBC 9.1, currently on IV vancomycin Area of cellulitis not expanding CT scan showed no drainable fluid collection Continue conservative management with abx Okay for diet from our standpoint No plans for surgical intervention at this time, may require some debridement at some point pt can follow up in the office for. we will continue to follow while pt is here Supervising Physician Co-Signing Physician Notes Patient seen and examined on morning rounds, labs and imaging reviewed, agree with above. 69-year-old male who felt a small pinch or bite while in bed few nights ago. He then noticed an enlarging black spot in the middle with surrounding redness. He did have some fevers and chills. He presented to the emergency room last night and was febrile with significant cellulitis. He did have a 2 cm area of necrosis, and a CT was scan was ordered to rule out an unde rlying abscess or deeper infection. On exam today he is afebrile as of morning rounds. He does have surrounding cellulitis with a 2 cm area of necrotic eschar. There is no fluctuance or expressible fluid. This does appear to be consistent with a spider bite, possibly of the recluse variety. Early debridement is not advisable in the situations, as it can actually extend the area of tissue necrosis. Typically we treat with antibiotics, and then follow-up with the patient as an outpatient to debride any nonviable eschar at which point he would be referred to wound care. No surgical intervention at this time, patient may eat. Surgery will follow while in house. He may follow- up as an outpatient next week. Subjective Patient says the pain is overall improved. He denies any fevers overnight or this AM. Feels hungry this morning. Physical Exam Physical Exam: awake/alert Skin: area of cellulitis not expanding, central eschar with small amount of bloody drainage on bandage Results & Data Vital Signs (Past 12 Hours) Vital Signs Temp Pulse Pulse Pulse Resp BP BP 12/15/19 07:09 37.2 C 68 18 96/62 L 12/15/19 01:27 37.2 C 84 16 130/80 12/15/19 01:08 79 18 114/51 L 12/15/19 00:13 85 18 105/57 L 12/14/19 22:52 37.0 C 80 18 99/54 L 12/14/19 21:54 88 16 120/64 Pulse Ox 12/15/19 07:09 94 12/15/19 01:27 98 12/15/19 01:08 94 12/15/19 00:13 94 12/14/19 22:52 95 12/14/19 21:54 94 PG Care Time/CCT Total # of Minutes Spent Total Time Spent with Patient: Total time spent is greater than 50% in coordination of care (as documented) at patient's floor/unit and/or counseling patient: Coding Level of Care Code 09303 Subseq Hosp Care Lvl 1 Diagnoses Spider bite wound T63.301A
[2019-12-15] MEDS: ATORVASTATIN 10 MG TAB PO SCH (08:57)
[2019-12-15] MEDS ORDERED: AMLODIPINE BESYLATE 5 MG TAB PO SCH (09:00)
--- NOTE | 2019-12-15 09:26 | Pharmacy Report ---
Pharmacy Abx Initial Consult - Date of Service December 15, 2019 - Pharmacy Dosing Scope Date of Consult: 12/13 Consultation requested by: Dr. Mancera Pharmacy is consulted to initiate vancomycin IV/PO dosing therapy, order appropriate labs and adjust drug dose/frequency. - Subjective The patient is a 69 year old M admitted on 12/14/19 21:12. - Objective Height: 5 ft 11 in Weight: 98.4 kg Vital Signs (Past 12hrs): Vital Signs Temp Pulse Pulse Pulse Resp BP BP 12/15/19 07:09 37.2 C 68 18 96/62 L 12/15/19 01:27 37.2 C 84 16 130/80 12/15/19 01:08 79 18 114/51 L 12/15/19 00:13 85 18 105/57 L 12/14/19 22:52 37.0 C 80 18 99/54 L 12/14/19 21:54 88 16 120/64 Pulse Ox 12/15/19 07:09 94 12/15/19 01:27 98 12/15/19 01:08 94 12/15/19 00:13 94 12/14/19 22:52 95 12/14/19 21:54 94 Lab Results (24hrs): Laboratory Tests (24 Hours) 12/15/19 12/15/19 12/14/19 05:43 05:43 16:15 WBC 9.91 Neut # (Auto) 7.01 H Creatinine 1.21 Est Cr Clr Drug Dosing 70.8 Procalcitonin < 0.05 12/14/19 12/14/19 16:15 16:15 WBC 12.32 H Neut # (Auto) 10.05 H Creatinine 1.17 Est Cr Clr Drug Dosing 75.6 Procalcitonin Micro Results: 12/14/19 16:15 Aerobic Blood Culture - Pending Blood Anaerobic Blood Culture - Pending 12/14/19 16:26 Aerobic Blood Culture - Pending Blood Anaerobic Blood Culture - Pending - Risk Factors for Resistance * Antimicrobial use within the last 90 days [keflex] - Assessment & Plan Assessment 69 year old male admitted with cellulitis/possible sepsis. Febrile on admission and leukocytosis present. Lesion may be from spider bite. General surgery consulted and plan is to continue conservative care with antibiotics. No drainable area noted. Blood cultures x 2 are pending. Leukocytosis resolved today Plan Vancomycin IV * Patient does not meet criteria for vancomycin/AUC dosing d/t weight >100 kg * Received loading dose of 2 gm iv x 1 last evening (~19 mg/kg) * Will dose with vancomycin 1500 mg (~15 mg/kg) iv q 16 hrs - target trough ~15 mcg/ml * Estimated kinetics: t1/2 ~11 hrs, ke~0.065, CrCl ~70 ml/min * Had nurse update patient weight in system - 99 kg * Will plan to collect trough if vancomycin to be continued >48 hrs Pharmacy will continue to follow and will adjust dose/frequency as necessary. Thank you.
[2019-12-15] MEDS ORDERED: PSYLLIUM 58.6% POWDER PACKET PO SCH (10:30)
[2019-12-15] MEDS ORDERED: Nursing to Pharmacy Communication SCH (11:30)
--- NOTE | 2019-12-15 14:10 | Hospitalist Progress Note ---
Date of Service December 15, 2019 Assessment & Plan (1) Cellulitis: * Cellulitis/central necrosis/spider bite wound/sepsis- manifestations of spider bite, possibly recluse. Patient states he has a wood shop in his basement and also [place]. Verified with patient that tetanus is up to date * Tmax 38.8C on admission. * Patient with systemic manifestations with elevated temperature, elevated white blood cell count, fatigue and generalized myalgias, tachycardia in ER * Continue IV Vancomycin, Aztreonam * Pain control with tylenol currently * NSS + KCl 20 mEq at 125ml/hr * General surgery consulted -- appreciate assistance * Per general surgery, early debridement is not advisable in the situations, as it can extend the area of tissue necrosis. * Continue to treat with antibiotics * Follow up outpatient for possible debridement of any nonviable eschar and possible referral to wound care * Temp 37.6C on 12/14 afternoon * Repeat Blood cultures pending -- initial BCx prelim NGTD, follow. (2) Spider bite wound: * See above (3) Hypertriglyceridemia: * Continue atorvastatin 10 mg p.o. daily (4) HTN (hypertension): * Hold indapamide and lisinopril. * With hold parameters continue amlodipine * BP remains stable at 122/72 * Continue to monitor (5) Obstructive sleep apnea: * CPAP ordered for tonight (6) Hypokalemia: * K 3.3 -- added to IVF * Resolved -->K 3.5 on AM labs (7) Constipation: * No abdominal pain, but patient states he has not had a BM -- requested metamucil as he takes at night with prune juice to help regulate his bowels --> ordered (8) Elevated bilirubin: * Tbili 1.9 on admission --> repeat 2.2 with direct bili elevated at 0.3. Has had a history of elevated bilirubin in the past looking at records. * All other LFTs wnl -- AST/ALT 17/38, alk phos low at 44 * Hepatic steatosis and cholelithiasis on CT, however patient without any abdominal pain at this time. * Continue to trend (9) DVT prophylaxis: * SCDs * Frequent ambulation encouraged * If patient remains inpatient past tomorrow would add on chemoprophylaxis Dispo: likely to remain inpatient 1-2 days Admission and Anticipated Discharge Date Admission Date: December 14, 2019 Supervising Physician Co-Signing Physician Notes PA Supervision Note: I did not personally see or examine the patient today, but I verified all alvarado points of CATHY Barry's assessment and plan with the following exceptions/additions: None Subjective Patient evaluated this morning. Rates pain 1/10 without movement, 3/10 with movement, and increases to 5-6/10 when palpated to left scapula. Patient states pain tolerable with tylenol, no request for anything additional. Discussed continuing IV antibiotics for now and monitoring response prior to transitioning to oral agents. States he did have a fever when he came in but denies any further fever or chills. Denies chest pain, shortness of breath, abdominal pain. Some nausea initially as he states he had not been eating much days prior. Resolved currently. No vomiting. Discussed that general surgery feels conservative treatment with antibiotics at this time due to no drainable abscess at this time. Hopeful for discharge in next day or two to return home with . All questions/concerns addressed at this time. Review of Systems Review of Systems: All systems reviewed & are unremarkable except as noted in HPI & below Physical Exam Constitutional: WD/WN, vitals as above + obese; no acute distress Eyes: PERRL, conjunctivae normal, anicteric sclerae Neck: trachea midline, no thyromegaly Respiratory: normal respiratory effort, lungs clear to auscultation Cardiovascular: RRR, no murmur, no edema Gastrointestinal (Abdomen): normal bowel sounds, soft, nontender, no hepatosplenomegaly Musculoskeletal: no cyanosis or clubbing, extremities motor strength 5/5 Skin: area of erythema/cellulitis in area of left scapula, within markings central area of necrosis approximately 2-3 cm in diameter Neurologic: PERRL, EOMI, accommodation nl, no face palsy, no dysarthria Psychiatric: A+Ox3, euthymic affect Lymphatic: no cervical or axillary lymphadenopathy Results & Data Results & Data ([facility]) Vital Signs (Past 12 Hours) Vital Signs Temp Pulse Resp BP Pulse Ox 12/15/19 12:18 37.0 C 12/15/19 11:05 37.6 C H 12/15/19 07:09 37.2 C 68 18 96/62 L 94 Laboratory Results 12/15/19 12/15/19 12/15/19 Range/Units 05:43 05:43 05:43 WBC (4.8-10.8) K/uL RBC (4.7-6.1) M/uL Hgb (14.0-18.0) g/dL Hct (42-52) % MCV (80-100) fL MCH (25-34) pg MCHC (32-36) g/dL RDW Std Deviation (36.4-46.3) fL RDW Coeff of Brittnee (11.5-14.5) % Plt Count (130-400) K/uL MPV (7.4-10.4) fL Immature Gran % (Auto) % Neut % (Auto) % Lymph % (Auto) % [place] % (Auto) % Eos % (Auto) % Baso % (Auto) % Neut # (Auto) (1.4-6.5) K/uL Lymph # (Auto) (1.2-3.4) K/uL [place] # (Auto) (0.11-0.59) K/uL Eos # (Auto) (0-0.5) K/uL Baso # (Auto) (0-0.2) K/uL Immature Gran # (Auto) (0.00-0.02) K/uL PT 11.9 (9.0-12.0) Seconds INR 1.1 (0.9-1.1) APTT 32.4 H (21.0-31.0) Seconds PTT Ratio 1.2 Sodium 138 (136-145) mmol/L Potassium 3.5 (3.5-5.1) mmol/L Chloride 104 (98-107) mmol/L Carbon Dioxide 29 (21-32) mmol/L Anion Gap 5.0 (3-11) BUN 16 (7-18) mg/dl Creatinine 1.21 (0.6-1.4) mg/dl Est Cr Clr Drug Dosing 70.8 ml/min Est GFR ( Amer) 71.4 Est GFR (Non-Af Amer) 61.6 BUN/Creatinine Ratio 12.9 (10-20) Glucose 111 H (70-99) mg/dl Calcium 7.9 L (8.5-10.1) mg/dl Phosphorus 3.3 (2.5-4.9) mg/dl Magnesium 1.9 (1.8-2.4) mg/dl Total Bilirubin 2.2 H (0.2-1) mg/dl Direct Bilirubin 0.3 H (0-0.2) mg/dl AST 17 (15-37) U/L ALT 38 (12-78) U/L Alkaline Phosphatase 44 L (45-117) U/L Total Protein 6.5 (6.4-8.2) gm/dl Albumin 3.3 L 3.3 L (3.4-5.0) gm/dl Procalcitonin (0-0.5) ng/ml 12/15/19 12/14/19 Range/Units 05:43 16:15 WBC 9.91 (4.8-10.8) K/uL RBC 4.30 L (4.7-6.1) M/uL Hgb 14.5 (14.0-18.0) g/dL Hct 40.8 L (42-52) % MCV 94.9 (80-100) fL MCH 33.7 (25-34) pg MCHC 35.5 (32-36) g/dL RDW Std Deviation 43.4 (36.4-46.3) fL RDW Coeff of Brittnee 12.6 (11.5-14.5) % Plt Count 137 (130-400) K/uL MPV 11.2 H (7.4-10.4) fL Immature Gran % (Auto) 0.3 % Neut % (Auto) 70.7 % Lymph % (Auto) 17.8 % [place] % (Auto) 10.2 % Eos % (Auto) 0.8 % Baso % (Auto) 0.2 % Neut # (Auto) 7.01 H (1.4-6.5) K/uL Lymph # (Auto) 1.76 (1.2-3.4) K/uL [place] # (Auto) 1.01 H (0.11-0.59) K/uL Eos # (Auto) 0.08 (0-0.5) K/uL Baso # (Auto) 0.02 (0-0.2) K/uL Immature Gran # (Auto) 0.03 H (0.00-0.02) K/uL PT (9.0-12.0) Seconds INR (0.9-1.1) APTT (21.0-31.0) Seconds PTT Ratio Sodium (136-145) mmol/L Potassium (3.5-5.1) mmol/L Chloride (98-107) mmol/L Carbon Dioxide (21-32) mmol/L Anion Gap (3-11) BUN (7-18) mg/dl Creatinine (0.6-1.4) mg/dl Est Cr Clr Drug Dosing ml/min Est GFR ( Amer) Est GFR (Non-Af Amer) BUN/Creatinine Ratio (10-20) Glucose (70-99) mg/dl Calcium (8.5-10.1) mg/dl Phosphorus (2.5-4.9) mg/dl Magnesium (1.8-2.4) mg/dl Total Bilirubin (0.2-1) mg/dl Direct Bilirubin (0-0.2) mg/dl AST (15-37) U/L ALT (12-78) U/L Alkaline Phosphatase (45-117) U/L Total Protein (6.4-8.2) gm/dl Albumin (3.4-5.0) gm/dl Procalcitonin < 0.05 (0-0.5) ng/ml Diagnostic Findings CT Chest IMPRESSION: 1. A cutaneous marker has been placed in the left upper back at the site of interest. There is minimal induration of the subcutaneous fat at this site which extends laterally toward the mid axillary region. Correlate clinically for evidence of cellulitis. No organized fluid collection or subcutaneous gas is seen. 2. There is no airspace consolidation or pleural effusion. 3. Hepatic steatosis and cholelithiasis. 4. Additional findings as above. PG Care Time/CCT Total # of Minutes Spent Total Time Spent with Patient: Total time spent is greater than 50% in coordination of care (as documented) at patient's floor/unit and/or counseling p atient: Coding Level of Care Code 77905 Subseq Hosp Care Lvl 3 Diagnoses Cellulitis L03.90 Spider bite wound T63.301A Hypertriglyceridemia E78.1 HTN (hypertension) I10 Obstructive sleep apnea G47.33 Hypokalemia E87.6 Constipation K59.00 Elevated bilirubin R17 DVT prophylaxis Z29.9
[2019-12-15] MEDS: PSYLLIUM 58.6% POWDER PACKET PO SCH (20:34)
[2019-12-15] MEDS: VANCOMYCIN HCL 1,500 MG in SODIUM CHLORIDE 0.9% 500 ML IV SCH (22:10)
[2019-12-15] MEDS: CETIRIZINE HCL 10 MG TABLET PO PRN (22:34)
[2019-12-16] MEDS: NSS + 20MEQ KCL 20 MEQ/1,000 ML BAG IV SCH ×2 (01:04→09:58)
[2019-12-16] MEDS: AZTREONAM 2,000 MG in DEXTROSE 5% 100 ML IV SCH (01:04)
[2019-12-16 06:12] LABS: Basophils # (auto) 0.03 K/uL (0-0.2); Basophils % (auto) 0.5 %; Eosinophils # (auto) 0.11 K/uL (0-0.5); Eosinophils % (auto) 1.9 %; Hematocrit (blood only) 38.2 % (42-52); Hemoglobin 13.1 g/dL (14.0-18.0); Immature Granulocytes # (auto) 0.02 K/uL (0.00-0.02); Immature Granulocytes % (auto) 0.3 %; Lymphocytes # (auto) 1.49 K/uL (1.2-3.4); Lymphocytes % (auto) 25.7 %; Mean Corpuscular Hemoglobin 32.7 pg (25-34); Mean Corpuscular Hgb Conc 34.3 g/dL (32-36); Mean Corpuscular Volume 95.3 fL (80-100); Mean Platelet Volume 11.8 fL (7.4-10.4); Monocytes # (auto) 0.83 K/uL (0.11-0.59); Monocytes % (auto) 14.3 %; Neutrophils # (auto) 3.31 K/uL (1.4-6.5); Neutrophils % (auto) 57.3 %; Platelet Count 123 K/uL (130-400); RDW Coefficient of Variation 12.5 % (11.5-14.5); RDW Standard Deviation 43.8 fL (36.4-46.3); Red Blood Count 4.01 M/uL (4.7-6.1); White Blood Count 5.79 K/uL (4.8-10.8)
[2019-12-16 06:36] LABS: Albumin Level 2.8 gm/dl (3.4-5.0); BUN Creatinine Ratio 11.8 (10-20); Calcium 7.6 mg/dl (8.5-10.1); Creatinine Clr Calc Pharmacy 90.7 ml/min; Est GFR (African American) 95.6; Est GFR (Non-African American) 82.5; Potassium 3.6 mmol/L (3.5-5.1)
[2019-12-16 06:40] LABS: Phosphorus 2.5 mg/dl (2.5-4.9)
[2019-12-16 06:45] LABS: RBC Morphology Unremarkable
[2019-12-16 06:47] LABS: INR 1.1 (0.9-1.1); Partial Thromboplastin Ratio 1.3; Prothrombin Time 11.9 Seconds (9.0-12.0)
[2019-12-16] MEDS: ATORVASTATIN 10 MG TAB PO SCH (08:35)
--- NOTE | 2019-12-16 09:43 | Surgery Progress Note ---
Date of Service December 16, 2019 Assessment & Plan (1) Spider bite wound: 69-year-old male with suspected spider bite wound. Cellulitis improving. Central eschar appears to be relatively stable and starting to slough. His fever curve is downtrending No acute surgical intervention indicated. Wounds of this type are typically treated with delayed debridement as early debridement can increase the area of necrosis Continue antibiotics, consider transition to oral The patient can follow-up in the surgery clinic early next week, possible plan for debridement in the OR or in the clinic Call with questions or concerns (2) Cellulitis: Subjective 69-year-old male admitted with suspected spider bite of his left upper back along with significant cellulitis. Imaging showed no abscess. He feels better today, had a good night sleep for the first time in a few days. He did have a low-grade fever yesterday but overall is feeling better. Physical Exam Constitutional: WD/WN, vitals as above Skin: + eschar (2 to 2.5 cm area of central eschar in the left upper back with surrounding erythema that appears to be resolving. There is some induration which is improved. There is also some subcutaneous edema but no fluctuance or evidence of abscess. There is some sloughing of the necrotic tissue) Results & Data Vital Signs (Past 12 Hours) Vital Signs Temp Pulse Resp BP Pulse Ox 12/16/19 07:53 36.7 C 62 17 117/76 95 12/15/19 23:48 37.3 C 64 15 120/73 95 12/15/19 22:09 37.3 C Laboratory Results Laboratory Results - last 24 hr 12/15/19 12/16/19 12/16/19 18:16 05:28 05:28 WBC 5.79 RBC 4.01 L Hgb 13.1 L Hct 38.2 L MCV 95.3 MCH 32.7 MCHC 34.3 RDW Std Deviation 43.8 RDW Coeff of Brittnee 12.5 Plt Count 123 L MPV 11.8 H Immature Gran % (Auto) 0.3 Neut % (Auto) 57.3 Lymph % (Auto) 25.7 [place] % (Auto) 14.3 Eos % (Auto) 1.9 Baso % (Auto) 0.5 Neut # (Auto) 3.31 Lymph # (Auto) 1.49 [place] # (Auto) 0.83 H Eos # (Auto) 0.11 Baso # (Auto) 0.03 Immature Gran # (Auto) 0.02 RBC Morphology Unremarkable PT 11.9 INR 1.1 APTT 35.0 H PTT Ratio 1.3 Sodium Potassium Chloride Carbon Dioxide Anion Gap BUN Creatinine Est Cr Clr Drug Dosing Est GFR ( Amer) Est GFR (Non-Af Amer) BUN/Creatinine Ratio Glucose Calcium Phosphorus Magnesium Albumin Bld Cult Staph aureus PCR Pending Blood Culture MRSA PCR Pending 12/16/19 05:28 WBC RBC Hgb Hct MCV MCH MCHC RDW Std Deviation RDW Coeff of Brittnee Plt Count MPV Immature Gran % (Auto) Neut % (Auto) Lymph % (Auto) [place] % (Auto) Eos % (Auto) Baso % (Auto) Neut # (Auto) Lymph # (Auto) [place] # (Auto) Eos # (Auto) Baso # (Auto) Immature Gran # (Auto) RBC Morphology PT INR APTT PTT Ratio Sodium 141 Potassium 3.6 Chloride 112 H Carbon Dioxide 25 Anion Gap 4.0 BUN 11 Creatinine 0.95 Est Cr Clr Drug Dosing 90.7 Est GFR ( Amer) 95.6 Est GFR (Non-Af Amer) 82.5 BUN/Creatinine Ratio 11.8 Glucose 104 H Calcium 7.6 L Phosphorus 2.5 Magnesium 2.0 Albumin 2.8 L Bld Cult Staph aureus PCR Blood Culture MRSA PCR PG Care Time/CCT Total # of Minutes Spent Total Time Spent with Patient: Total time spent is greater than 50% in coordination of care (as documented) at patient's floor/unit and/or counseling patient: Coding Level of Care Code 57886 Inpt Consult Level 2 Diagnoses Spider bite wound T63.301A Cellulitis L03.90
--- NOTE | 2019-12-16 12:16 | Hospitalist Progress Note ---
Date of Service December 16, 2019 Assessment & Plan (1) MSSA bacteremia: * likely secondary to spider bite L scapular region with associated cellulitis/central necrosis/spider bite wound/sepsis- manifestations of spider bite, possibly recluse. Patient states he has a wood shop in his basement and also [place]. Verified with patient that tetanus is up to date * Tmax 38.8C on admission --> Patient with systemic manifestations with elevated temperature, elevated white blood cell count, fatigue and generalized myalgias, tachycardia in ER * Pain control with tylenol currently * NSS + KCl 20 mEq at 125ml/hr -- discontinued as patient now taking adequate PO, WBC normalized and no further fevers, BP stable at 117/76 * General surgery consulted -- appreciate assistance --> early debridement is not advisable in the situations, as it can extend the area of tissue necrosis. * Temp 37.6C on 12/14 afternoon * Initial blood cultures negative to date, however cultures from 12/14 1/2 sets positive for gram positive cocci --> PCR performed and showed MSSA. Follow cultures * Discontinued IV Aztreonam * Continued vancomycin, but vanco trough low at 6.7 --> discussed with pharmacist and will transition to Ancef IV 2gm Q8 for coverage of MSSA bacteremia-- will need to arrange for IV abx with CM -- CM aware * ECHO pending to assess for vegetations (2) Cellulitis: * See above -- erythema improving, however with increased induration/eschar * General surgery consulted -- appreciate assistance Per general surgery, early debridement is not advisable in the situations, as it can extend the area of tissue necrosis. * Will need follow up in surgery clinic early next week for possible debridement in OR vs in clinic * Continue to monitor response given switch to Ancef as above (3) Spider bite wound: * See above (4) HTN (hypertension): * Chronic. Controlled. Currently 117/76 * Continue home amlodipine * Indapamide and lisinopril initially on hold -- will resume as BP tolerates * Continue to monitor (5) Hypertriglyceridemia: * Continue atorvastatin 10 mg p.o. daily (6) Obstructive sleep apnea: * CPAP ordered (7) Hypokalemia: * K 3.3 -- added to IVF * Resolved -->K 3.6 on AM labs (8) Constipation: * No abdominal pain, but patient stated he had not had a BM -- requested metamucil as he takes at night with prune juice to help regulate his bowels on 12/14 --> ordered * RESOLVED (9) Elevated bilirubin: * Tbili 1.9 on admission --> repeat 2.2 with direct bili elevated at 0.3. Has had a history of elevated bilirubin in the past looking at records. * All other LFTs wnl -- AST/ALT 17/38, alk phos low at 44 * Hepatic steatosis and cholelithiasis on CT, however patient without any abdominal pain at this time. * Continue to trend with AM labs (10) DVT prophylaxis: * SCDs * Frequent ambulation encouraged * If patient remains inpatient past tomorrow would add on chemoprophylaxis -- added lovenox but monitor platelets, as they are low at 123 on morning labs Dispo: likely to remain inpatient until negative blood cultures and set up for IV abx -- likely 2-3 days Admission and Anticipated Discharge Date Admission Date: December 14, 2019 Supervising Physician Co-Signing Physician Notes CATHY Supervision Note: I did not personally see or examine the patient today, but I verified all alvarado points of CATHY Barry's assessment and plan with the following exceptions/additions: None Subjective Patient evaluated this morning. Mild fever last evening but nothing since that time. Pain mild and controlled with PO medications. Patient reports BM with addition of metamucil and prune juice as he takes at home. Discussed positive blood cultures and that we will need IV antibiotics for at least two weeks following a negative culture and that we will coordinate with case management to arrange this. Also discussed obtaining ECHO to ensure no vegetations on valves. Patient demonstrated understanding. Denies chest pain outside of MSK due to excessive working, reproducible on palpation chest wall. Denies shortness of breath, abdominal pain, n/v/d at this time. Spoke with on speaker and updated. All questions/concerns addressed at this time. Physical Exam Constitutional: WD/WN, vitals as above + obese; no acute distress Eyes: PERRL, conjunctivae normal, anicteric sclerae Neck: trachea midline, no thyromegaly Respiratory: normal respiratory effort, lungs clear to auscultation Cardiovascular: RRR, no murmur, no edema Gastrointestinal (Abdomen): normal bowel sounds, soft, nontender, no hepatosplenomegaly Musculoskeletal: no cyanosis or clubbing, extremities motor strength 5/5 Skin: area of erythema/cellulitis in area of left scapula, within markings increased induration on exam today but no fluctuance of purulant drainage able to be expressed on exam central eschar measuring approximately 2.5-3cm in diameter with some sloughing tender to palpation Neurologic: PERRL, EOMI, accommodation nl, no face palsy, no dysarthria Psychiatric: A+Ox3, euthymic affect Lymphatic: no cervical or axillary lymphadenopathy Results & Data Results & Data ([facility]) Vital Signs (Past 12 Hours) Vital Signs Temp Pulse Resp BP Pulse Ox 12/16/19 07:53 36.7 C 62 17 117/76 95 Laboratory Results 12/16/19 12/16/19 12/16/19 Range/Units 13:43 05:28 05:28 WBC (4.8-10.8) K/uL RBC (4.7-6.1) M/uL Hgb (14.0-18.0) g/dL Hct (42-52) % MCV (80-100) fL MCH (25-34) pg MCHC (32-36) g/dL RDW Std Deviation (36.4-46.3) fL RDW Coeff of Brittnee (11.5-14.5) % Plt Count (130-400) K/uL MPV (7.4-10.4) fL Immature Gran % (Auto) % Neut % (Auto) % Lymph % (Auto) % [place] % (Auto) % Eos % (Auto) % Baso % (Auto) % Neut # (Auto) (1.4-6.5) K/uL Lymph # (Auto) (1.2-3.4) K/uL [place] # (Auto) (0.11-0.59) K/uL Eos # (Auto) (0-0.5) K/uL Baso # (Auto) (0-0.2) K/uL Immature Gran # (Auto) (0.00-0.02) K/uL RBC Morphology PT 11.9 (9.0-12.0) Seconds INR 1.1 (0.9-1.1) APTT 35.0 H (21.0-31.0) Seconds PTT Ratio 1.3 Sodium 141 (136-145) mmol/L Potassium 3.6 (3.5-5.1) mmol/L Chloride 112 H (98-107) mmol/L Carbon Dioxide 25 (21-32) mmol/L Anion Gap 4.0 (3-11) BUN 11 (7-18) mg/dl Creatinine 0.95 (0.6-1.4) mg/dl Est Cr Clr Drug Dosing 90.7 ml/min Est GFR ( Amer) 95.6 Est GFR (Non-Af Amer) 82.5 BUN/Creatinine Ratio 11.8 (10-20) Glucose 104 H (70-99) mg/dl Calcium 7.6 L (8.5-10.1) mg/dl Phosphorus 2.5 (2.5-4.9) mg/dl Magnesium 2.0 (1.8-2.4) mg/dl Albumin 2.8 L (3.4-5.0) gm/dl Vancomycin Trough 6.7 (See Comment) mcg/ml Bld Cult Staph aureus PCR (Negative) Blood Culture MRSA PCR (Negative) 12/16/19 12/15/19 Range/Units 05:28 18:16 WBC 5.79 (4.8-10.8) K/uL RBC 4.01 L (4.7-6.1) M/uL Hgb 13.1 L (14.0-18.0) g/dL Hct 38.2 L (42-52) % MCV 95.3 (80-100) fL MCH 32.7 (25-34) pg MCHC 34.3 (32-36) g/dL RDW Std Deviation 43.8 (36.4-46.3) fL RDW Coeff of Brittnee 12.5 (11.5-14.5) % Plt Count 123 L (130-400) K/uL MPV 11.8 H (7.4-10.4) fL Immature Gran % (Auto) 0.3 % Neut % (Auto) 57.3 % Lymph % (Auto) 25.7 % [place] % (Auto) 14.3 % Eos % (Auto) 1.9 % Baso % (Auto) 0.5 % Neut # (Auto) 3.31 (1.4-6.5) K/uL Lymph # (Auto) 1.49 (1.2-3.4) K/uL [place] # (Auto) 0.83 H (0.11-0.59) K/uL Eos # (Auto) 0.11 (0-0.5) K/uL Baso # (Auto) 0.03 (0-0.2) K/uL Immature Gran # (Auto) 0.02 (0.00-0.02) K/uL RBC Morphology Unremarkable PT (9.0-12.0) Seconds INR (0.9-1.1) APTT (21.0-31.0) Seconds PTT Ratio Sodium (136-145) mmol/L Potassium (3.5-5.1) mmol/L Chloride (98-107) mmol/L Carbon Dioxide (21-32) mmol/L Anion Gap (3-11) BUN (7-18) mg/dl Creatinine (0.6-1.4) mg/dl Est Cr Clr Drug Dosing ml/min Est GFR ( Amer) Est GFR (Non-Af Amer) BUN/Creatinine Ratio (10-20) Glucose (70-99) mg/dl Calcium (8.5-10.1) mg/dl Phosphorus (2.5-4.9) mg/dl Magnesium (1.8-2.4) mg/dl Albumin (3.4-5.0) gm/dl Vancomycin Trough (See Comment) mcg/ml Bld Cult Staph aureus PCR Positive A (Negative) Blood Culture MRSA PCR Negative (Negative) PG Care Time/CCT Total # of Minutes Spent Total Time Spent with Patient: Total time spent is greater than 50% in coordination of care (as documented) at patient's floor/unit and/or counseling patient: Coding Level of Care Code 51581 Subseq Hosp Care Lvl 3 Diagnoses MSSA bacteremia R78.81; B95.61 Cellulitis L03.90 Spider bite wound T63.301A HTN (hypertension) I10 Hypertriglyceridemia E78.1 Obstructive sleep apnea G47.33 Hypokalemia E87.6 Constipation K59.00 Elevated bilirubin R17 DVT prophylaxis Z29.9
[2019-12-16] MEDS ORDERED: VANCOMYCIN TROUGH ONE (13:30)
[2019-12-16] MEDS: VANCOMYCIN HCL 1,500 MG in SODIUM CHLORIDE 0.9% 500 ML IV SCH (14:46)
[2019-12-16] MEDS: CEFAZOLIN 2000MG 2,000 MG/15 ML SYR IV SCH (16:00)
[2019-12-16] MEDS: SIMETHICONE 40 MG/0.6 ML 30ML PO PRN (16:38)
[2019-12-16] MEDS: ENOXAPARIN INJ 40 MG/0.4 ML SYR SQ SCH (16:38)
--- NOTE | 2019-12-16 17:02 | XCELERA ---
[id number]
[2019-12-16] MEDS: lisinopriL 20 MG TAB PO SCH (21:25)
[2019-12-16] MEDS: PSYLLIUM 58.6% POWDER PACKET PO SCH (21:25)
[2019-12-16] MEDS: CETIRIZINE HCL 10 MG TABLET PO PRN (21:35)
[2019-12-17] MEDS: SIMETHICONE 40 MG/0.6 ML 30ML PO PRN
[2019-12-17 06:02] LABS: Basophils # (auto) 0.04 K/uL (0-0.2); Basophils % (auto) 0.7 %; Eosinophils # (auto) 0.21 K/uL (0-0.5); Eosinophils % (auto) 3.5 %; Hematocrit (blood only) 37.8 % (42-52); Hemoglobin 13.7 g/dL (14.0-18.0); Immature Granulocytes # (auto) 0.03 K/uL (0.00-0.02); Immature Granulocytes % (auto) 0.5 %; Lymphocytes # (auto) 1.94 K/uL (1.2-3.4); Lymphocytes % (auto) 32.4 %; Mean Corpuscular Hemoglobin 33.9 pg (25-34); Mean Corpuscular Hgb Conc 36.2 g/dL (32-36); Mean Corpuscular Volume 93.6 fL (80-100); Mean Platelet Volume 11.2 fL (7.4-10.4); Monocytes # (auto) 0.77 K/uL (0.11-0.59); Monocytes % (auto) 12.9 %; Platelet Count 133 K/uL (130-400); RDW Coefficient of Variation 12.6 % (11.5-14.5); Red Blood Count 4.04 M/uL (4.7-6.1); White Blood Count 5.99 K/uL (4.8-10.8)
[2019-12-17 06:14] LABS: INR 1.1 (0.9-1.1); Partial Thromboplastin Ratio 1.2; Partial Thromboplastin Time 33.3 Seconds (21.0-31.0); Prothrombin Time 11.6 Seconds (9.0-12.0)
[2019-12-17 06:40] LABS: Albumin Level 2.9 gm/dl (3.4-5.0); BUN Creatinine Ratio 11.5 (10-20); Calcium 7.8 mg/dl (8.5-10.1); Creatinine Clr Calc Pharmacy 86.1 ml/min; Est GFR (African American) 89.9; Est GFR (Non-African American) 77.5; Magnesium 2.1 mg/dl (1.8-2.4); Potassium 3.6 mmol/L (3.5-5.1)
[2019-12-17 06:44] LABS: Albumin Globulin Ratio 0.9 (0.9-2); Bilirubin,Total 0.7 mg/dl (0.2-1); Globulin 3.1 gm/dl (2.5-4.0)
[2019-12-17] MEDS: CEFAZOLIN 2000MG 2,000 MG/15 ML SYR IV SCH ×4 (07:38→23:22)
[2019-12-17] MEDS: INDAPAMIDE 1.25 MG TAB PO SCH (09:12)
[2019-12-17] MEDS: lisinopriL 20 MG TAB PO SCH ×2 (09:12→20:43)
[2019-12-17] MEDS: ENOXAPARIN INJ 40 MG/0.4 ML SYR SQ SCH (09:13)
[2019-12-17] MEDS: ATORVASTATIN 10 MG TAB PO SCH (09:13)
--- NOTE | 2019-12-17 10:22 | Hospitalist Progress Note ---
Date of Service December 17, 2019 Assessment & Plan (1) MSSA bacteremia: * likely secondary to spider bite L scapular region with associated cellulitis/central necrosis/spider bite wound/sepsis- manifestations of spider bite, possibly recluse. Patient states he has a wood shop in his basement and also [place]. Verified with patient that tetanus is up to date * Tmax 38.8C on admission --> Patient with systemic manifestations with elevated temperature, elevated white blood cell count, fatigue and generalized myalgias, tachycardia in ER * Temp 37.6C on 12/14 afternoon * Pain control with tylenol currently * General surgery consulted -- appreciate assistance --> early debridement is not advisable in the situations, as it can extend the area of tissue necrosis. * Initial blood cultures negative to date, however cultures from 12/14 06/18 sets positive for staph aureus, MSSA * Repeat cultures NGTD --> follow * Aztreonam, Vanco discontinued (vanco trough low at 6.7) --> switched to Ancef IV 2gm Q8 on 12/15 --> discussed with CM * ECHO negative for vegetations * Will obtain PICC line prior to discharge but wait until at least 24 hours after most recent bcx if negative (2) Cellulitis: * See above -- erythema improving, however with increased induration/eschar * General surgery consulted -- appreciate assistance Per general surgery, early debridement is not advisable in the situations, as it can extend the area of tissue necrosis. * Will need follow up in surgery clinic early next week for possible debridement in OR vs in clinic * Continue to monitor response given switch to Ancef as above (3) Spider bite wound: * See above (4) HTN (hypertension): * Chronic. Controlled. Currently 110/73 * Continue home amlodipine, indapamide, lisinopril * Continue to monitor (5) Hypertriglyceridemia: * Continue atorvastatin 10 mg p.o. daily (6) Obstructive sleep apnea: * CPAP ordered (7) Hypokalemia: * K 3.3 -- added to IVF * Resolved -->K 3.6 on AM labs (8) Constipation: * No abdominal pain, but patient stated he had not had a BM -- requested metamucil as he takes at night with prune juice to help regulate his bowels on 12/14 --> ordered * RESOLVED (9) Elevated bilirubin: * Tbili 1.9 on admission --> repeat 2.2 with direct bili elevated at 0.3. Has had a history of elevated bilirubin in the past looking at records. * All other LFTs wnl -- AST/ALT 17/38, alk phos low at 44 * Hepatic steatosis and cholelithiasis on CT, however patient without any abdominal pain at this time. * RESOLVED (10) DVT prophylaxis: * SCDs * Frequent ambulation encouraged * Lovenox SQ -- platelets improved from 123 to 133 --> continue to monitor Dispo: to remain inpatient until negative blood cultures and set up for IV abx -- likely at least 1-2 days. Will need PICC prior to discharge and at least 2 weeks IV abx course from negative cultures Admission and Anticipated Discharge Date Admission Date: December 14, 2019 Supervising Physician Co-Signing Physician Notes PA Supervision Note: I did not personally see or examine the patient today, but I verified all alvarado points of CATHY Barry's assessment and plan with the following exceptions/additions: COuld consider switching to once daily Rocephin for ease of administration after discharge. Needs US-guided PIV prior to discharge as will only need 10 more days of therapy Subjective Patient evaluated this morning. Pain minimal. Decreased tenderness. Patient states he is feeling much better. No further fever/chills, chest pain, shortness of breath, n/v/d. Did have some gas last night and requested medication for such. No further issues reported. Discussed plan to await negative blood cultures prior to discharge and reviewed findings on ECHO which did not show any vegetation. Review of Systems Review of Systems: All systems reviewed & are unremarkable except as noted in HPI & below Physical Exam Constitutional: WD/WN, vitals as above + obese; no acute distress Eyes: PERRL, conjunctivae normal, anicteric sclerae Neck: trachea midline, no thyromegaly Respiratory: normal respiratory effort, lungs clear to auscultation Cardiovascular: RRR, no murmur, no edema Gastrointestinal (Abdomen): normal bowel sounds, soft, nontender, no hepatos plenomegaly Musculoskeletal: no cyanosis or clubbing, extremities motor strength 5/5 Skin: area of erythema/cellulitis in area of left scapula, within markings --> improving minimally tender to palpation, no fluctuance or expressible material central eschar without spread, some sloughing present Neurologic: PERRL, EOMI, accommodation nl, no face palsy, no dysarthria Psychiatric: A+Ox3, euthymic affect Lymphatic: no cervical or axillary lymphadenopathy Results & Data Results & Data ([facility]) Vital Signs (Past 12 Hours) Vital Signs Temp Pulse Resp BP Pulse Ox 12/17/19 07:20 36.7 C 66 17 114/74 97 12/16/19 23:52 37.2 C 64 15 107/67 95 Laboratory Results 12/17/19 12/17/19 12/17/19 Range/Units 05:35 05:35 05:35 WBC 5.99 (4.8-10.8) K/uL RBC 4.04 L (4.7-6.1) M/uL Hgb 13.7 L (14.0-18.0) g/dL Hct 37.8 L (42-52) % MCV 93.6 (80-100) fL MCH 33.9 (25-34) pg MCHC 36.2 H (32-36) g/dL RDW Std Deviation 43.0 (36.4-46.3) fL RDW Coeff of Brittnee 12.6 (11.5-14.5) % Plt Count 133 (130-400) K/uL MPV 11.2 H (7.4-10.4) fL Immature Gran % (Auto) 0.5 % Neut % (Auto) 50.0 % Lymph % (Auto) 32.4 % [place] % (Auto) 12.9 % Eos % (Auto) 3.5 % Baso % (Auto) 0.7 % Neut # (Auto) 3.00 (1.4-6.5) K/uL Lymph # (Auto) 1.94 (1.2-3.4) K/uL [place] # (Auto) 0.77 H (0.11-0.59) K/uL Eos # (Auto) 0.21 (0-0.5) K/uL Baso # (Auto) 0.04 (0-0.2) K/uL Immature Gran # (Auto) 0.03 H (0.00-0.02) K/uL PT 11.6 (9.0-12.0) Seconds INR 1.1 (0.9-1.1) APTT 33.3 H (21.0-31.0) Seconds PTT Ratio 1.2 Sodium 142 (136-145) mmol/L Potassium 3.6 (3.5-5.1) mmol/L Chloride 112 H (98-107) mmol/L Carbon Dioxide 25 (21-32) mmol/L Anion Gap 5.0 (3-11) BUN 11 (7-18) mg/dl Creatinine 1.00 (0.6-1.4) mg/dl Est Cr Clr Drug Dosing 86.1 ml/min Est GFR ( Amer) 89.9 Est GFR (Non-Af Amer) 77.5 BUN/Creatinine Ratio 11.5 (10-20) Glucose 101 H (70-99) mg/dl Calcium 7.8 L (8.5-10.1) mg/dl Magnesium 2.1 (1.8-2.4) mg/dl Total Bilirubin 0.7 D (0.2-1) mg/dl AST 28 (15-37) U/L ALT 61 (12-78) U/L Alkaline Phosphatase 47 (45-117) U/L Total Protein 6.0 L (6.4-8.2) gm/dl Albumin 2.9 L (3.4-5.0) gm/dl Globulin 3.1 (2.5-4.0) gm/dl Albumin/Globulin Ratio 0.9 (0.9-2) Diagnostic Findings ECHO The left ventricle is normal in size There is normal left ventricular wall thickness Left ventricular systolic function is normal Ejection Fraction = 65-70% The left ventricular wall motion is normal Grade I diastolic dysfunction (abnormal relaxation pattern) No significant valvular disease No vegetations seen PG Care Time/CCT Total # of Minutes Spent Total Time Spent with Patient: Total time spent is greater than 50% in coordination of care (as documented) at patient's floor/unit and/or counseling patient: Coding Level of Care Code 84338 Subseq Hosp Care Lvl 3 Diagnoses MSSA bacteremia R78.81; B95.61 Cellulitis L03.90 Spider bite wound T63.301A HTN (hypertension) I10 Hypertriglyceridemia E78.1 Obstructive sleep apnea G47.33 Hypokalemia E87.6 Constipation K59.00 Elevated bilirubin R17 DVT prophylaxis Z29.9
--- NOTE | 2019-12-17 12:46 | Surgery Progress Note ---
Date of Service December 17, 2019 Assessment & Plan (1) Spider bite wound: Patient here with suspected spider wound WBC 5.9 and patient afebrile Patient clinically feeling well Area of cellulitis not expanding & improving Awaiting blood culture data Okay for discharge from our standpoint when cleared by medicine Will leave instructions for patient to follow up in clinic next wk Supervising Physician Co-Signing Physician Notes Patient seen and examined, labs reviewed, agree with above. Improved erythema and induration, less tender. No evidence of undrained fluid collection. Eschar is stable. Okay to DC from surgery perspective, follow-up in clinic next week as an outpatient to discuss elective debridement. Subjective Patient states his pain continues to improve. No fevers for >48hours. Physical Exam Physical Exam: awake/alert Skin: area of erythema over L back with central necrosis, improving Results & Data Vital Signs (Past 12 Hours) Vital Signs Temp Pulse Resp BP Pulse Ox 12/17/19 07:20 36.7 C 66 17 114/74 97 PG Care Time/CCT Total # of Minutes Spent Total Time Spent with Patient: Total time spent is greater than 50% in coordination of care (as documented) at patient's floor/unit and/or counseling patient: Coding Level of Care Code 92412 Subseq Hosp Care Lvl 1 Diagnoses Spider bite wound T63.301A
[2019-12-17] MEDS: PSYLLIUM 58.6% POWDER PACKET PO SCH (20:43)
[2019-12-17] MEDS: CETIRIZINE HCL 10 MG TABLET PO PRN (21:44)
[2019-12-18 05:40] LABS: Hematocrit (blood only) 40.3 % (42-52); Hemoglobin 14.3 g/dL (14.0-18.0); Mean Corpuscular Hgb Conc 35.5 g/dL (32-36); Mean Corpuscular Volume 93.1 fL (80-100); Platelet Count 159 K/uL (130-400); RDW Coefficient of Variation 12.3 % (11.5-14.5); Red Blood Count 4.33 M/uL (4.7-6.1); White Blood Count 5.28 K/uL (4.8-10.8)
[2019-12-18 05:55] LABS: Partial Thromboplastin Ratio 1.2; Partial Thromboplastin Time 33.5 Seconds (21.0-31.0)
[2019-12-18 06:12] LABS: Albumin Level 2.9 gm/dl (3.4-5.0); BUN Creatinine Ratio 13.3 (10-20); Calcium 8.4 mg/dl (8.5-10.1); Creatinine Clr Calc Pharmacy 94.6 ml/min; Est GFR (African American) 100.7; Est GFR (Non-African American) 86.9; Potassium 3.6 mmol/L (3.5-5.1)
[2019-12-18 06:14] LABS: Albumin Globulin Ratio 0.9 (0.9-2); Bilirubin,Total 0.7 mg/dl (0.2-1); Globulin 3.3 gm/dl (2.5-4.0); Total Protein 6.2 gm/dl (6.4-8.2)
[2019-12-18] MEDS: CEFAZOLIN 2000MG 2,000 MG/15 ML SYR IV SCH (07:34)
[2019-12-18] MEDS: ENOXAPARIN INJ 40 MG/0.4 ML SYR SQ SCH (08:49)
[2019-12-18] MEDS: INDAPAMIDE 1.25 MG TAB PO SCH (08:49)
[2019-12-18] MEDS: lisinopriL 20 MG TAB PO SCH (08:49)
[2019-12-18] MEDS: ATORVASTATIN 10 MG TAB PO SCH (08:49)
--- NOTE | 2019-12-18 10:01 | Hospitalist Progress Note ---
Date of Service December 18, 2019 Assessment & Plan Admission and Anticipated Discharge Date Admission Date: December 14, 2019 Results & Data Results & Data ([facility]) Vital Signs (Past 12 Hours) Vital Signs Temp Pulse Resp BP BP Pulse Ox 12/18/19 07:28 36.6 C 76 16 119/80 94 12/17/19 23:26 36.8 C 71 16 133/93 97 Laboratory Results 12/18/19 12/18/19 12/18/19 Range/Units 05:19 05:19 05:19 WBC 5.28 (4.8-10.8) K/uL RBC 4.33 L (4.7-6.1) M/uL Hgb 14.3 (14.0-18.0) g/dL Hct 40.3 L (42-52) % MCV 93.1 (80-100) fL MCH 33.0 (25-34) pg MCHC 35.5 (32-36) g/dL RDW Std Deviation 42.0 (36.4-46.3) fL RDW Coeff of Brittnee 12.3 (11.5-14.5) % Plt Count 159 (130-400) K/uL MPV 11.0 H (7.4-10.4) fL APTT 33.5 H (21.0-31.0) Seconds PTT Ratio 1.2 Sodium 142 (136-145) mmol/L Potassium 3.6 (3.5-5.1) mmol/L Chloride 113 H (98-107) mmol/L Carbon Dioxide 25 (21-32) mmol/L Anion Gap 4.0 (3-11) BUN 12 (7-18) mg/dl Creatinine 0.91 (0.6-1.4) mg/dl Est Cr Clr Drug Dosing 94.6 ml/min Est GFR ( Amer) 100.7 Est GFR (Non-Af Amer) 86.9 BUN/Creatinine Ratio 13.3 (10-20) Glucose 102 H (70-99) mg/dl Calcium 8.4 L (8.5-10.1) mg/dl Total Bilirubin 0.7 (0.2-1) mg/dl AST 23 (15-37) U/L ALT 47 (12-78) U/L Alkaline Phosphatase 49 (45-117) U/L Total Protein 6.2 L (6.4-8.2) gm/dl Albumin 2.9 L (3.4-5.0) gm/dl Globulin 3.3 (2.5-4.0) gm/dl Albumin/Globulin Ratio 0.9 (0.9-2) PG Care Time/CCT Total # of Minutes Spent Total Time Spent with Patient: Total time spent is greater than 50% in coordination of care (as documented) at patient's floor/unit and/or counseling patient: Coding
--- NOTE | 2019-12-18 11:58 | Discharge Summary ---
Date of Service December 18, 2019 Admission HPI Per Admitting Provider The patient is a 69-year-old male with a past medical history including diverticulosis, obstructive sleep apnea, impaired fasting glucose, hypertriglyceridemia and hypertension. He was seen early acute care facility and placed on Keflex for what he was told was likely an abscess on his back. With the persistent worsening of symptoms, he presented to the emergency department for assessment. Work-up in ED included a CT scan which was consistent with a cellulitis without any area amenable to drainage. Patient reports that he thought he may have been bit by a spider. He has not had any recent travels or sick exposures. He feels generally ill, with muscle aches and fatigue. Admission Exam Per Admitting Provider The patient is awake, alert and oriented 3, well developed and well nourished, normocephalic and atraumatic, lying in bed and in no acute distress. HEENT--PERRL, EOMI, mucous membranes and oropharynx dry. Neck--supple. No JVD. No bruits. Thyroid normal, trachea midline, no adenopathy. Heart--normal S1 and S2. No murmurs, rubs or gallops. Lungs--clear bilaterally, no respiratory distress, no accessory muscle use. Abdomen--normal bowel sounds and soft. Nontender. Nondistended. Extremities--no cyanosis or clubbing. No edema. There are good distal pulses b/l. Dermatologic--along the medial aspect of the left scapula, there is a 4 cm area of central necrosis, with doubled area of surrounding induration and erythema. Neurologic--cranial nerves II through XII grossly intact. Rheumatologic--normal range of motion. Psychiatric--normal affect. Principal Diagnosis MSSA Bacteremia, Spider Bite Discharge Exam Constitutional WD/WN, vitals as above + obese; no acute distress Eyes PERRL, conjunctivae normal, anicteric sclerae Neck trachea midline, no thyromegaly Respiratory normal respiratory effort, lungs clear to auscultation Cardiovascular RRR, no murmur, no edema Gastrointestinal (Abdomen) normal bowel sounds, soft, nontender, no hepatosplenomegaly Musculoskeletal no cyanosis or clubbing, extremities motor strength 5/5 Skin area of erythema/cellulitis in area of left scapula, approx 3cm in diameter of central eschar, within markings --> improving minimally tender to palpation, no fluctuance or expressible material decreased induration Neurologic PERRL, EOMI, accommodation nl, no face palsy, no dysarthria Psychiatric A+Ox3, euthymic affect Lymphatic no cervical or axillary lymphadenopathy Discharge Data Allergies Allergy/AdvReac Type Severity Reaction Status Date / Time Penicillins Allergy hives (?) Verified 12/14/19 15:00 sulfamethoxazole AdvReac Intermediate SEVERE GI Verified 12/14/19 15:00 [From Bactrim] UPSET trimethoprim [From Bactrim] AdvReac Intermediate SEVERE GI Verified 12/14/19 15:00 UPSET Consultations 12/14/19 20:19 ED Decision to Admit Stat 12/15/19 01:45 Consult Case Management - Discharge Planning Routine 12/15/19 06:00 Consult General Surgery Routine Ordered Studies 12/14/19 17:17 CT chest w con Stat Hospital Course (1) MSSA bacteremia: Secondary likely to spider bite L scapular region with associated cellulitis/central necrosis/spider bite wound/sepsis- manifestations of spider bite, possibly recluse. Patient states he has a wood shop in his basement and also [place] in highly [place]. Verified with patient that tetanus is up to date * Tmax 38.8C on admission --> Patient with systemic manifestations with elevated temperature, elevated white blood cell count, fatigue and generalized myalgias, tachycardia in ER * Temp 37.6C on 12/14 afternoon * Pain control with tylenol * General surgery consulted --> early debridement is not advisable in the situations, as it can extend the area of tissue necrosis. * Initial blood cultures negative to date, however cultures from 12/14 1/2 sets positive for staph aureus, MSSA * Repeat cultures NGTD * On Aztreonam, Vanco initially and switched to Ancef -- discussed with microbiology and per recommendations if sensitive to oxacillin, ceftriaxone should cover-->decision was made to discharge on rocephin 2gm IV daily. * Patient received first dose prior to discharge and to be continued for complete course of 2 weeks. Ultrasound guided IV obtained before discharge. * ECHO negative for vegetations * Follow up with general surgery beginning of next week and then with wound care following possible debridement. (2) Cellulitis: * Secondary to spider bite * Per general surgery, early debridement is not advisable in the situations, as it can extend the area of tissue necrosis. * See above (3) Spider bite wound: * See above (4) HTN (hypertension): * Chronic. Controlled. BP 119/80 * Continued home amlodipine, indapamide, lisinopril at discharge (5) Hypertriglyceridemia: * Continued atorvastatin 10 mg p.o. daily (6) Obstructive sleep apnea: * On CPAP -- continued while inpatient (7) Hypokalemia: * K 3.3 - given replacement. * K 3.6 on AM labs (8) Constipation: * RESOLVED with metamucil/prune juice (9) Elevated bilirubin: * Tbili 1.9 on admission --> repeat 2.2 with direct bili elevated at 0.3. Has had a history of elevated bilirubin in the past looking at records. * All other LFTs wnl -- AST/ALT 17/38, alk phos low at 44 * Hepatic steatosis and cholelithiasis on CT, however patient without any abdominal pain during hospitalization * RESOLVED prior to discharge (10) DVT prophylaxis: * SCDs, Frequent ambulation encouraged. * On Lovenox SQ while inpatient Sent home on ceftriaxone 2gm IV via US guided IV. Patient to follow up with general surgery early next week for possible debridement, then wound care Total Time Total Time Spent Total Time Spent (In Minutes): 70 Discharge Plan Discharge Items Patient Disposition: Home - Home Health Services Reason For Visit: INSECT BITE CELLULITIS AND ABSCESS, SEPSIS Discharge Diagnosis: MSSA Bacteremia, Spider Bite Goals: You have been hospitalized for an acute medical problem. During your stay at [facility], we have made an effort to correct the problem that brought you to the hospital while keeping you as comfortable as possible. Medications were used to bring your condition under control and your discharge instructions will include directions for any medications you should take after leaving the hospital. Please make sure you see your Primary Care Provider as part of your follow up plan. Activity: Resume your previous activity Non-emergency contact: Primary Care Provider and Surgeon Call non-emergency contact if: you have any medication questions, your symptoms worsen and you have a fever Follow-up/Referrals: [facility] [Provider Group] - 12/25/19 8:00 am (Please, follow up at [facility] on SaturdayDecember 24 at 8:00 am. *The clinic is located at [address] in [place]. If you need to change this appointment, call the office at [phone]. ) Singh Alaniz MD [Primary Care Provider] - 12/24/19 2:15 pm (Please, follow up at Dr. Alaniz's office with his associate, Elisha Donovan PA-C, on December 23 at 2:15 pm. *If you need to change this appointment, call their office at [phone].) Justin Kline, , TREVOR [Physician] - (Please, follow up at [facility] General Surgery Office with Dr. Kline. *A nurse from this office will contact you with the appointment information. The office is located at [address] in [place]. If you have any questions, call the office at [phone].) Diet: Heart Healthy Addtl Attending Provider Instructions: You have been hospitalized for a spider bite and were found to have bacteria in your bloodstream. General surgery was consulted and these wounds are best helped with IV antibiotics and debridement later on with wound care follow up. An ECHOCARDIOGRAM (ultrasound of your heart) was taken to ensure no vegetations on your heart valves, and this did not show any signs of bacteria affecting your valves. You have been set up for an Ultrasound Guided IV which is good for the duration of your antibiotics. You are being sent with Ceftriaxone 2gm IV daily for the next 12 days to complete a full course of 14 days since your last negative blood culture. Case management has coordinated with [facility] to come to your house to assist. They should be there tomorrow to show you how. Please follow up with general surgery next week as discussed. You will also be set up with wound care for further care and treatment. Please keep wound covered and dressing clean and dry to prevent any further spread or introduction of further bacteria. Please follow up with your primary care provider in the next week. Please return to the emergency department if you have any worsening pain, fever, spread of redness or increased drainage. It has been a pleasure being a part of the medical team providing for you while you have been in the hospital. Take care! Pending Studies at Discharge: Yes Studies:: Blood cultures -- no growth to date Stand-Alone Forms: My [facility] Medications and DC Order Prescriptions: New ceftriaxone 2 gram recon soln 1 gm IV DAILY Qty: 12 RF: 0 Continued lisinopril 20 mg tablet 20 mg PO BID Qty: 180 RF: 3 indapamide 1.25 mg tablet 1.25 mg PO DAILY Qty: 90 RF: 3 amlodipine 5 mg tablet 5 mg PO DAILY Qty: 90 RF: 3 atorvastatin 10 mg tablet 10 mg PO DAILY Qty: 90 RF: 3 cetirizine 10 mg capsule 10 mg PO DAILY PRN (Reason: SEASONAL ALLERGIES) Qty: 90 RF: 0 epinephrine [EpiPen 2-Sukumar] 0.3 mg/0.3 mL auto-injector 0.3 mg IM Q10M PRN (Reason: bronchodilation) Qty: 2 RF: 0 Discharge Orders: Discharge Order (Routine); Ordered 12/18/19 Ordered By: Rosmery Chávez/Other Patient Handouts: Ceftriaxone injection Admission Data Admit Date/Time: 12/14/19 21:12 Attending Provider: Rosmery Loza Admit Provider: Alpesh Mancera Primary Care Provider: Singh Alaniz Other Providers: Justin Kline ; [facility] ; Alpesh Mancera Other Interventions: Discharge Summary Assessment (RN) Last Done: 12/18/19 12:18 DC Date/Time DO NOT enter until pt leaves facility: 12/18/19 16:26 Supervising Physician Co-Signing Physician Notes PA Supervision Note: I personally saw and examined the patient. I verified all alvarado points and agree with CATHY Barry with the following exceptions and/or additions: Patient doing very well. Minimal pain in the upper back at the site of the lesion. Afebrile. Repeat blood cultures remain no growth to date. Denies chest pain or shortness of breath. He is stable and ready for discharge to home. Vitals reviewed Gen: AAOx3, NAD HEENT: Anicteric sclerae, EOMI CV: RRR no mgr nl S1S2 Pulm: CTAB no wcr Abd: +BS soft NT ND no masses or hernias Ext: No edema, 2+ DP pulses Skin: 10 cm erythematous indurated circular lesion with 3 cm of necrosis in the central region, no drainage Neuro: Full strength throughout 69-year-old male here with presumed spider bite cellulitis and MSSA bacteremia -Much improved -Repeat blood cultures remain no growth to date Has a peripherally ultrasound guided IV in place and will continue a total course of 14 days of IV ceftriaxone Follow-up with general surgery as an outpatient and PCP Follow labs weekly while on antibiotics Coding Level of Care Code D/C Day Management >30 mins Diagnoses MSSA bacteremia R78.81; B95.61 Cellulitis L03.90 Spider bite wound T63.301A HTN (hypertension) I10 Hypertriglyceridemia E78.1 Obstructive sleep apnea G47.33 Hypokalemia E87.6 Constipation K59.00 Elevated bilirubin R17 DVT prophylaxis Z29.9
[2019-12-18] MEDS ORDERED: cefTRIAXone SODIUM 2,000 MG in DEXTROSE 5% 50 ML IV SCH (12:00)
== END 2019-12-18 16:26 | disposition home health service (06) | DRG 872 ==
LOC: ED 13:01 → SUATTDRO 21:12 → 3E 21:12

== ENCOUNTER 2021-04-12 10:23 | Inpatient (IN) ==
[2021-04-12 11:03] LABS: Hematocrit (blood only) 39.8 % (42-52); Hemoglobin 14.6 g/dL (14.0-18.0); Mean Corpuscular Hemoglobin 32.7 pg (25-34); Mean Corpuscular Hgb Conc 36.7 g/dL (32-36); Mean Corpuscular Volume 89.2 fL (80-100); Mean Platelet Volume 11.7 fL (7.4-10.4); Platelet Count 111 K/uL (130-400); RDW Coefficient of Variation 12.6 % (11.5-14.5); RDW Standard Deviation 40.8 fL (36.4-46.3); Red Blood Count 4.46 M/uL (4.7-6.1); White Blood Count 6.24 K/uL (4.8-10.8)
[2021-04-12 11:19] LABS: Albumin Level 3.1 gm/dl (3.4-5.0); BUN Creatinine Ratio 11.4 (10-20); Calcium 8.4 mg/dl (8.5-10.1); Creatinine Clr Calc Pharmacy 95.5 ml/min; Est GFR (African American) 97.4 ml/min; Est GFR (Non-African American) 84.1 ml/min; Potassium 2.8 mmol/L (3.5-5.1)
[2021-04-12 11:20] LABS: Albumin Globulin Ratio 0.8 (0.9-2); Bilirubin,Total 2.5 mg/dl (0.2-1); Globulin 3.8 gm/dl (2.5-4.0); Total Protein 6.9 gm/dl (6.4-8.2)
[2021-04-12 11:42] LABS: ALC (manual) 2.25 K/uL (1.2-3.4); ANC (manual) 3.33 K/uL (1.4-6.5); Basophils # (manual) 0.06 K/uL (0-0.2); Basophils % (manual) 0.9 %; Dohle Bodies 1+; Eosinophils # (manual) 0.08 K/uL (0-0.5); Eosinophils % (manual) 1.3 %; Lymphocytes % (manual) 20.9 %; Monocytes # (manual) 0.52 K/uL (0.11-0.59); Monocytes % (manual) 8.4 %; Neutrophils # (manual) 3.33 K/uL (1.4-6.5); Neutrophils % (manual) 53.4 %; Plasma Cells # (manual) 0.06 K/uL (0-0); Plasma Cells % (manual) 0.9 %; Reactive Lymphocytes # (manual) 0.89 K/uL; Reactive Lymphocytes % (manual) 14.2 %; Toxic Granulation 1+
--- NOTE | 2021-04-12 12:16 | Emergency Department Note ---
Impression & Plan Abdominal pain, Fever, Elevated LFTs, Hypokalemia ED Provider Note INFORMANT: Patient ED PROVIDER(S): Junior Tabor MD CHIEF COMPLAINT: Abdominal pain PLAN: Disposition: Admitted Condition: Good Outpatient prescription management: none Referral: None MEDICAL DECISION MAKING: Patient presented because of abnormal labs, fever, and abdominal pain. His LFTs are elevated. CT scan of the abdomen pelvis was performed. The patient has significant cholelithiasis. Patient had hypokalemia on his labs. He was given IV potassium. He was hydrated. He declined analgesia. Patient was given a dose of IV Zosyn. Further management will be necessary in the hospital Triage Nursing notes reviewed and agree them. Vital Signs: reviewed and remarkable for no significant abnormalities Differential diagnosis: Pancreatitis, biliary pathology, viral syndrome, appendicitis, testicular torsion, infections, diverticulitis, UTI, obstruction, mesenteric ischemia, aortic pathology, inflammatory bowel disease, renal colic, PUD, hernia, volvu maykel, constipation, as well as other pathologies. Diagnostics interpreted by me: ECG: none Cardiac Monitoring: Cardiac monitoring ordered by me: The patient was placed on continuous cardiac monitoring and observed. It revealed a normal sinus rhythm at 70 beats per minute without ectopy or evidence of dysrhythmia. Imaging studies: CT scan as noted below. Cholelithiasis. HPI: The patient is a 70 year old male who presents to the Emergency Room with complaints of abdominal pain. This started last week and is persisting. The patient also notes the following associated symptoms, fever, poor appetite, fatigue. The patient has taken no medication for relieving factors. Current pain is rated as 2/10. Patient had outpatient labs done and was told that his LFTs are elevated. Patient vaccinated for Covid. Recent testing negative. Pt denies LOC, headache, chills, diaphoresis, visual changes, neck pain, chest pain, breathing difficulties, nausea, vomiting, back pain, melena, hematochezia, urinary symptoms, numbness, weakness, lymphadenopathy, rash, or other complaints. ROS: See above HPI for pertinent positives & negatives. A total of 10 systems reviewed and were otherwise negative. PAST MEDICAL HISTORY:See Below , sleep apnea, hypertension PAST SURGICAL HISTORY:See Below, FAMILY HISTORY:See Below SOCIAL HISTORY:See Below, HOME MEDICATIONS:See Below ALLERGIES:See Below VITALS:See Below PHYSICAL EXAMINATION: GENERAL: Awake, tired-appearing, in no distress HENT: Normocephalic, atraumatic. Oropharynx unremarkable. EYES: Normal conjunctiva. Sclera slightly icteric. NECK: Inspection normal. Non-tender. Supple. No nuchal rigidity. FROM. No masses. RESPIRATORY: Clear to auscultation. No wheezes. No rales. Normal respiratory effort. CARDIAC: Normal rate. Normal rhythm. No murmurs. No rubs. Extremities warm and well perfused. Pulses equal. No JVD. GI: Soft, non-distended. Minimal upper tenderness to palpation. No rebound or guarding. No masses. RECTAL: Deferred. MUSCULOSKELETAL: Atraumatic. Chest examination reveals no tenderness. The back is symmetrical on inspection without obvious abnormality. There is no CVA tenderness to palpation. No joint edema. LOWER EXTREMITIES: Calves are equal size bilaterally and non-tender. No edema. No discoloration. NEURO: Normal sensorium. No sensory or motor deficits noted. SKIN: No rash or jaundice noted. Junior Tabor MD Past Med/Surg History Medical History Bilateral inguinal hernia Cellulitis Constipation Diverticulosis Eczema Elevated bilirubin Hypertension Hypertriglyceridemia Hypertriglyceridemia MSSA bacteremia Obstructive sleep apnea Spider bite wound Surgical History H/O Achilles tendon repair H/O cataract removal with insertion of prosthetic lens Family History Uncle Myocardial infarction Mother , age 60 Breast cancer Diverticulitis Cancer Hypertension Pancreatic neoplasm Father , age 39 Cancer Pancreatic neoplasm Denies family history of Ovarian cancer Colorectal cancer Social History Smoking Status: Never smoker Second Hand Exposure: No; Hx Alcohol Use: Yes Alcohol type: hard liquor Hx Substance Use: No Preferred Language: Egyptian Communication Ability: Effective Visual Impairment: No Limitations Hearing Ability: Normal 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 Beliefs That Will Affect Care: None marital status: Current Living Situation: Spouse current occupational status: retired How many Children do You have: 2 Other Information That Helps Us Care for You: No Feels Safe at Home: Yes Safety Concerns: Feels Safe At This Time Childhood Exposure to Second-Hand Smoke: Yes caffeine: Yes Dental Care, Regularly: Yes Physical Activity Frequency: Daily Seatbelt Use: always Sunscreen Use: Yes Assistive Devices: CPAP Allergies Allergies Allergy/AdvReac Type Severity Reaction Status Date / Time sulfamethoxazole AdvReac Intermediate SEVERE GI Verified 04/12/21 11:33 [From Bactrim] UPSET trimethoprim [From Bactrim] AdvReac Intermediate SEVERE GI Verified 04/12/21 11:33 UPSET metronidazole [From Flagyl] AdvReac Gastrointestinal Verified 04/12/21 16:20 Upset Home Meds Home Medications Medication Instructions Recorded Confirmed cetirizine 10 mg capsule 10 mg PO DAILY PRN #90 cap 04/20/19 04/12/21 lisinopril 20 mg tablet 20 mg PO BID 04/12/21 04/12/21 Previous Rx's Medication Instructions Recorded epinephrine 0.3 mg/0.3 mL 0.3 mg IM Q10M PRN #2 ea 05/04/19 injection, auto-injector (EpiPen 2-Sukumar) tadalafil 20 mg tablet 20 mg PO DAILY PRN #10 tab 06/20/20 amlodipine 5 mg tablet 5 mg PO DAILY #90 tab 09/07/20 indapamide 1.25 mg tablet 1.25 mg PO DAILY #90 tab 09/07/20 atorvastatin 10 mg tablet 10 mg PO DAILY #90 tab 09/16/20 Results & Data (ED) Vital Signs Vital Signs - 24 hr 04/12/21 10:25 04/12/21 10:51 04/12/21 10:52 Temperature 36.9 C Temperature Source Oral Pulse Rate 93 H 83 Pulse Rate [Left] Pulse Rate from SpO2 Sensor 86 Pulse Rhythm [Left] Pulse Strength [Left] Respiratory Rate 18 17 Respiratory Effort / Characteristics Respiratory Depth Blood Pressure 127/86 Blood Pressure [Left Arm] Blood Pressure Mean 99 Blood Pressure Mean [Left Arm] Blood Pressure Position [Left Arm] Pulse Oximetry 96 96 95 Oxygen Delivery Method Room Air Room Air Sepsis Recent Fever Within 48 Hours Yes Sepsis New/Unexplained Change in Mental Status No Sepsis Action Taken by Nursing No Action Required 04/12/21 11:00 04/12/21 11:01 04/12/21 11:30 Temperature Temperature Source Pulse Rate 79 72 Pulse Rate [Left] 82 Pulse Rate from SpO2 Sensor Pulse Rhythm [Left] Regular Pulse Strength [Left] Normal Respiratory Rate 15 16 16 Respiratory Effort / Characteristics Non-Labored Respiratory Depth Normal Blood Pressure 125/78 123/91 Blood Pressure [Left Arm] 125/78 Blood Pressure Mean 93 101 Blood Pressure Mean [Left Arm] 93 Blood Pressure Position [Left Arm] Lying Pulse Oximetry 94 98 91 Oxygen Delivery Method Room Air Room Air Room Air Sepsis Recent Fever Within 48 Hours Sepsis New/Unexplained Change in Mental Status Sepsis Action Taken by Nursing 04/12/21 12:00 04/12/21 12:30 04/12/21 13:00 Temperature Temperature Source Pulse Rate 78 70 69 Pulse Rate [Left] Pulse Rate from SpO2 Sensor Pulse Rhythm [Left] Pulse Strength [Left] Respiratory Rate 18 17 24 Respiratory Effort / Characteristics Respiratory Depth Blood Pressure 137/82 129/87 124/82 Blood Pressure [Left Arm] Blood Pressure Mean 100 101 96 Blood Pressure Mean [Left Arm] Blood Pressure Position [Left Arm] Pulse Oximetry 93 96 96 Oxygen Delivery Method Room Air Sepsis Recent Fever Within 48 Hours Sepsis New/Unexplained Change in Mental Status Sepsis Action Taken by Nursing 04/12/21 13:30 Temperature Temperature Source Pulse Rate 71 Pulse Rate [Left] Pulse Rate from SpO2 Sensor Pulse Rhythm [Left] Pulse Strength [Left] Respiratory Rate 18 Respiratory Effort / Characteristics Respiratory Depth Blood Pressure 144/78 H Blood Pressure [Left Arm] Blood Pressure Mean 100 Blood Pressure Mean [Left Arm] Blood Pressure Position [Left Arm] Pulse Oximetry 95 Oxygen Delivery Method Sepsis Recent Fever Within 48 Hours Sepsis New/Unexplained Change in Mental Status Sepsis Action Taken by Nursing Laboratory Data Result diagrams: 04/12/21 10:50 04/12/21 10:50 Lab Results 04/12/21 04/12/21 04/12/21 Range/Units 10:50 10:50 10:55 WBC 6.24 (4.8-10.8) K/uL RBC 4.46 L (4.7-6.1) M/uL Hgb 14.6 (14.0-18.0) g/dL Hct 39.8 L (42-52) % MCV 89.2 (80-100) fL MCH 32.7 (25-34) pg MCHC 36.7 H (32-36) g/dL RDW Std Deviation 40.8 (36.4-46.3) fL RDW Coeff of Brittnee 12.6 (11.5-14.5) % Plt Count 111 L (130-400) K/uL MPV 11.7 H (7.4-10.4) fL Neutrophils % (Manual) 53.4 % Lymphocytes % (Manual) 20.9 % Reactive Lymphs % (Man) 14.2 % Monocytes % (Manual) 8.4 % Eosinophils % (Manual) 1.3 % Basophils % (Manual) 0.9 % Plasma Cell % (Manual) 0.9 % Neutrophils # (Manual) 3.33 (1.4-6.5) K/uL Total Absolute Neuts 3.33 (1.4-6.5) K/uL Lymphocytes # (Manual) 1.30 (1.2-3.4) K/uL Reactive Lymphs # 0.89 K/uL Total Abs Lymphocytes 2.25 (1.2-3.4) K/uL Monocytes # (Manual) 0.52 (0.11-0.59) K/uL Eosinophils # (Manual) 0.08 (0-0.5) K/uL Basophils # (Manual) 0.06 (0-0.2) K/uL Plasma Cell # (Manual) 0.06 H (0-0) K/uL Toxic Granulation 1+ Dohle Bodies 1+ Sodium 131 L (136-145) mmol/L Potassium 2.8 L (3.5-5.1) mmol/L Chloride 96 L (98-107) mmol/L Carbon Dioxide 26 (21-32) mmol/L Anion Gap 9.0 (3-11) BUN 11 (7-18) mg/dl Creatinine 0.93 (0.6-1.4) mg/dl Est Cr Clr Drug Dosing 95.5 ml/min Est GFR ( Amer) 97.4 ml/min Est GFR (Non-Af Amer) 84.1 ml/min BUN/Creatinine Ratio 11.4 (10-20) Glucose 148 H (70-99) mg/dl Calcium 8.4 L (8.5-10.1) mg/dl Total Bilirubin 2.5 H (0.2-1) mg/dl AST 69 H (15-37) U/L ALT 135 H (12-78) U/L Alkaline Phosphatase 84 (45-117) U/L Total Protein 6.9 (6.4-8.2) gm/dl Albumin 3.1 L (3.4-5.0) gm/dl Globulin 3.8 (2.5-4.0) gm/dl Albumin/Globulin Ratio 0.8 L (0.9-2) Lipase 148 (73-393) U/L Urine Color Urine Appearance (Clear) Urine pH (4.5-7.5) Ur Specific Keyes (1.000-1.030) Urine Protein (Negative) Urine Glucose (UA) (Negative) Urine Ketones (Negative) Urine Blood (Negative) Urine Nitrite (Negative) Urine Bilirubin (Negative) Urine Urobilinogen (Negative) Ur Leukocyte Esterase (Negative) Urine WBC (Auto) (0-5) /hpf Urine RBC (Auto) (0-4) /hpf U Hyaline Cast (Auto) (0-5) /lpf U Epithel Cells (Auto) (0-5) /lpf Urine Bacteria (Auto) (Negative) COVID-19 Eval Order Covid19 at [facility] SARS-CoV-2 (PCR) (Negative) 04/12/21 04/12/21 Range/Units 10:55 12:15 WBC (4.8-10.8) K/uL RBC (4.7-6.1) M/uL Hgb (14.0-18.0) g/dL Hct (42-52) % MCV (80-100) fL MCH (25-34) pg MCHC (32-36) g/dL RDW Std Deviation (36.4-46.3) fL RDW Coeff of Brittnee (11.5-14.5) % Plt Count (130-400) K/uL MPV (7.4-10.4) fL Neutrophils % (Manual) % Lymphocytes % (Manual) % Reactive Lymphs % (Man) % Monocytes % (Manual) % Eosinophils % (Manual) % Basophils % (Manual) % Plasma Cell % (Manual) % Neutrophils # (Manual) (1.4-6.5) K/uL Total Absolute Neuts (1.4-6.5) K/uL Lymphocytes # (Manual) (1.2-3.4) K/uL Reactive Lymphs # K/uL Total Abs Lymphocytes (1.2-3.4) K/uL Monocytes # (Manual) (0.11-0.59) K/uL Eosinophils # (Manual) (0-0.5) K/uL Basophils # (Manual) (0-0.2) K/uL Plasma Cell # (Manual) (0-0) K/uL Toxic Granulation Dohle Bodies Sodium (136-145) mmol/L Potassium (3.5-5.1) mmol/L Chloride (98-107) mmol/L Carbon Dioxide (21-32) mmol/L Anion Gap (3-11) BUN (7-18) mg/dl Creatinine (0.6-1.4) mg/dl Est Cr Clr Drug Dosing ml/min Est GFR ( Amer) ml/min Est GFR (Non-Af Amer) ml/min BUN/Creatinine Ratio (10-20) Glucose (70-99) mg/dl Calcium (8.5-10.1) mg/dl Total Bilirubin (0.2-1) mg/dl AST (15-37) U/L ALT (12-78) U/L Alkaline Phosphatase (45-117) U/L Total Protein (6.4-8.2) gm/dl Albumin (3.4-5.0) gm/dl Globulin (2.5-4.0) gm/dl Albumin/Globulin Ratio (0.9-2) Lipase (73-393) U/L Urine Color Yellow Urine Appearance Clear (Clear) Urine pH 8.0 H (4.5-7.5) Ur Specific Keyes 1.008 (1.000-1.030) Urine Protein Negative (Negative) Urine Glucose (UA) Negative (Negative) Urine Ketones Negative (Negative) Urine Blood Trace H (Negative) Urine Nitrite Negative (Negative) Urine Bilirubin Negative (Negative) Urine Urobilinogen Positive H (Negative) Ur Leukocyte Esterase Negative (Negative) Urine WBC (Auto) 1-5 (0-5) /hpf Urine RBC (Auto) 0-4 (0-4) /hpf U Hyaline Cast (Auto) 0 (0-5) /lpf U Epithel Cells (Auto) 0-5 (0-5) /lpf Urine Bacteria (Auto) Negative (Negative) COVID-19 Eval Order SARS-CoV-2 (PCR) NEGATIVE (Negative) Administered Medications Sodium Chloride (Nss 1000ml) 1,000 mls @ 125 mls/hr IV .Q8H LUCI Stop: 05/12/21 15:59 Last Admin: 04/12/21 16:33 Dose: 125 mls/hr Documented by: [id number] Ceftriaxone Sodium 2,000 mg/ (Dextrose) 50 mls @ 100 mls/hr IV Q24H LUCI; Protocol Stop: 04/22/21 16:59 Last Infusion: 04/12/21 17:45 Dose: 0 mls/hr Documented by: [id number] Admin: 04/12/21 17:15 Dose: 100 mls/hr Documented by: [id number] Metronidazole (Flagyl) 500 mg in 100 mls @ 100 mls/hr IV Q8H LUCI Stop: 04/22/21 16:59 Last Infusion: 04/12/21 17:16 Dose: 100 mls/hr Documented by: [id number] Infusion: 04/12/21 17:16 Dose: 0 mls/hr Documented by: [id number] Admin: 04/12/21 17:15 Dose: 100 mls/hr Documented by: [id number] Discontinued Medications Potassium Chloride (K Iron / Wtr) 10 meq in 100 mls @ 100 mls/hr IV Q1H LUCI Stop: 04/12/21 14:14 Last Infusion: 04/12/21 17:39 Dose: 0 mls/hr Documented by: [id number] Admin: 04/12/21 16:33 Dose: 100 mls/hr Documented by: [id number] Infusion: 04/12/21 13:18 Dose: 0 mls/hr Documented by: [id number] Admin: 04/12/21 12:18 Dose: 100 mls/hr Documented by: [id number] Piperacillin Sod/Tazobactam Sod (Zosyn) 4.5 gm in 120 mls @ 240 mls/hr IV NOW ONE Stop: 04/12/21 14:13 Last Infusion: 04/12/21 15:04 Dose: 0 mls/hr Documented by: [id number] Admin: 04/12/21 14:37 Dose: 240 mls/hr Documented by: [id number] Potassium Chloride (K Iron / Wtr) 10 meq in 100 mls @ 100 mls/hr IV Q1H STA Stop: 04/12/21 15:41 Last Admin: 04/12/21 17:49 Dose: 100 mls/hr Documented by: [id number] Ioversol (Optiray 320 100ml) 95 ml IV ONCE ONE Stop: 04/12/21 13:28 Last Admin: 04/12/21 13:28 Dose: 95 ml Documented by: [id number] Imaging Data Radiologist's Impression: Abdomen/Pelvis CT 04/12/21 12:03 CT abd pelvis IV con only CLINICAL HISTORY: elevated LFTs, fever TECHNIQUE: Helical axial images of the abdomen and pelvis were obtained and displayed. Automated dose lowering techniques and/or adjustment according to patient size were utilized for this exam. This exam was performed with intravenous contrast. COMPARISON: Comparison is made to CT abdomen and pelvis 04/27/2019 FINDINGS: Lower chest: For findings above the diaphragm, please see CT chest performed same day. Liver: Unremarkable. No focal lesions are seen. Gallbladder and biliary tree: Cholelithiasis is seen without evidence of cholecystitis. No intra- or extrahepatic biliary ductal dilation. Pancreas: Unremarkable, no focal lesions. Spleen: Splenomegaly is noted, the spleen measures Adrenals: Mild thickening of the bilateral adrenal glands is unchanged. Kidneys and ureters: A 3.4 cm exophytic simple cyst is in the left kidney inferior pole. Bladder: Unremarkable. Reproductive organs: Unremarkable. Bowel: Diverticulosis is seen without evidence of diverticulitis. Lymph nodes Retroperitoneal: Subcentimeter lymph nodes are noted. Mesenteric: Subcentimeter lymph nodes are noted. Pelvic: Unremarkable. Peritoneum: Normal Vessels: Atherosclerotic calcifications are seen. Abdominal wall: Bilateral fat-containing inguinal hernias are seen. Bones: Degenerative changes in the visualized spine. IMPRESSION: 1. No acute intra-abdominal abnormalities. 2. Large gallstones without evidence of cholecystitis. 3. Diffuse subcentimeter lymph nodes are nonspecific. ACT 112: Negative or not required by law. Electronically signed by: Elliot Smith M.D. 04/12/2021 2:22 PM Discharge Plan Visit Data Chief Complaint: Abdominal Pain Stated Complaint: REFERRED BY DOCTOR, GALLBLADDER LIVER ISSUES ED Provider: Junior Tabor Discharge Problem: Abdominal pain, Fever, Elevated LFTs, Hypokalemia Patient Disposition: Admitted As Inpatient Discharge Instructions Interventions: ED Discharge Assessment Last Done: 04/12/21 15:38
[2021-04-12] MEDS: POTASSIUM CHLORIDE / WTR 10 MEQ/100 ML PLCT IV SCH ×5 (12:18→23:25)
[2021-04-12 12:36] LABS: Appearance Urine Clear (Clear); Bacteria Urine Automated Negative (Negative); Bilirubin Urine Negative (Negative); Blood Urine Trace (Negative); Cast Urine Automated 0 /lpf (0-5); Color Urine Yellow; Epithelial Cell Urine Auto 0-5 /lpf (0-5); Glucose Urine UA Negative (Negative); Ketones Urine Negative (Negative); Leukocyte Esterase Urine Negative (Negative); Nitrite Urine Negative (Negative); Protein Urine Negative (Negative); RBC Urine Automated 0-4 /hpf (0-4); Specific Gravity Urine 1.008 (1.000-1.030); Urobilinogen Urine Positive (Negative)
[2021-04-12] MEDS ORDERED: OPTIRAY 320 100ml IV ONE (13:27)
[2021-04-12] MEDS ORDERED: PIPERACILL/TAZOBAC CONSULT ACTIVE PRN (13:44)
[2021-04-12] MEDS ORDERED: PIPERACILLIN/TAZOBACTAM 4.5 GM/120 ML BAG IV ONE (13:44)
--- NOTE | 2021-04-12 14:21 | History & Physical Report ---
Date of Service April 12, 2021 Assessment & Plan (1) Choledocholithiasis: Plan: Elliot is a 70-year-old male who presents with decreased appetite, abdominal bloating, elevated bilirubin, and elevated LFTs and imaging consistent with gallstones and who is admitted for management of choledocholithiasis Choledocholithiasis AST 69, ALT 135, total bilirubin 2.5, lipase normal Patient with rare social alcohol use Recent zavala-colored stools, decreased appetite CT-Ab: No acute intra-abdominal abnormalities. Large gallstones without evidence of cholecystitis. Diffuse subcentimeter lymph nodes are nonspecific. Given fevers/chills prior to admission and large gallstones we will continue empiric treatment with Rocephin/Flagyl GI consulted, general surgery consulted NSS 125 cc/h, n.p.o. plus meds. No sips/chips Hypokalemia 2/2 poor intake and loose bowel movements. 2.8 on admission, received 20 MICU in ER Additional repletion ordered Magnesium pending CBC, BMP daily (2) HTN (hypertension): Plan: Amlodipine 5 mg continued Lisinopril 20 mg p.o. twice daily temporarily held for? Cholecystectomy (3) Obstructive sleep apnea: Plan: CPAP nightly as needed (4) Fever: Plan: As above Plan: Diet: N.p.o. plus essential meds Disposition: Medical/surgical CODE STATUS: Full code DVT prophylaxis: SCDs, ambulate History of Present Illness Primary Care Provider: Singh Alaniz MD Elliot Ruiz is a 70yo M who presents for evaluation of severe bloating. NOtes his symptoms began since Saturday (4-5 days ago) and has not been able to keep anything down except liquids. Thought he has a gastritis/flu at first, but still hasn't been able to eat. NO appetite, has not tried eating. Denies pain, but endorses bloating discomfort in his mid/right abdomen. Bowel movements have slowed down since not eating, zavala colored BMs the last few days whereas are normally brown. No blood/melena. No history of NE, heart disease NO history of asthma or breathing problems No vision change Feels fatigued last week, no focal weakness Medical History: Reviewed. Sleep apnea on CPAP and HTN. Medications: Reviewed. Took medicines this morning. Surgical History: Reviewed, achilles tendon repair. FHX: Brother with gallstones. Otherwise Noncontributory Allergies: Reviewed, allergic to sulfa (GI upset)> Social History: No tobacco use, rare social alcohol, no recreational drug or medical marijuana use. Code Status: Full Code Allergies Allergy/AdvReac Type Severity Reaction Status Date / Time sulfamethoxazole AdvReac Intermediate SEVERE GI Verified 04/12/21 11:33 [From Bactrim] UPSET trimethoprim [From Bactrim] AdvReac Intermediate SEVERE GI Verified 04/12/21 11:33 UPSET Home Medications Medication Instructions Recorded Confirmed Type cetirizine 10 mg capsule 10 mg PO DAILY PRN #90 cap 04/20/19 04/12/21 History epinephrine 0.3 mg/0.3 mL 0.3 mg IM Q10M PRN #2 ea 05/04/19 04/12/21 Rx injection, auto-injector (EpiPen 2-Sukumar) tadalafil 20 mg tablet 20 mg PO DAILY PRN #10 tab 06/20/20 04/12/21 Rx amlodipine 5 mg tablet 5 mg PO DAILY #90 tab 09/07/20 04/12/21 Rx indapamide 1.25 mg tablet 1.25 mg PO DAILY #90 tab 09/07/20 04/12/21 Rx atorvastatin 10 mg tablet 10 mg PO DAILY #90 tab 09/16/20 04/12/21 Rx lisinopril 20 mg tablet 20 mg PO BID 04/12/21 04/12/21 History Past Med/Surg History Medical History Bilateral inguinal hernia Cellulitis Constipation Diverticulosis Eczema Elevated bilirubin Hypertension Hypertriglyceridemia Hypertriglyceridemia MSSA bacteremia Obstructive sleep apnea Spider bite wound Surgical History H/O Achilles tendon repair H/O cataract removal with insertion of prosthetic lens Family History Uncle Myocardial infarction Mother , age 60 Breast cancer Diverticulitis Cancer Hypertension Pancreatic neoplasm Father , age 39 Cancer Pancreatic neoplasm Denies family history of Ovarian cancer Colorectal cancer Social History Smoking Status: Never smoker Second Hand Exposure: No; Hx Alcohol Use: No Hx Substance Use: No Preferred Language: Honduran Communication Ability: Effective Visual Impairment: No Limitations Hearing Ability: Normal 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 NAD. Cooperative. HEENT: Atraumatic, normocephalic. Trace scleral icterus. Visual acuity and hearing intact. Pulm: CTAB A&P. -wheezes, -rales, -rhonchi. Symmetrical chest rise. No increase work of breathing. No respiratory distress. Cardiac: RRR, -mrg. Radial pulses intact and symmetrical. Abdominal: Softly distended, no rebound, no rigidity, "trace of bloating pressure "at right upper quadrant, denies pain Extremities: Warm, dry, 5/5 ankle dorsiflexion/plantar flexion and theatre arts professor strength without asymmetry. Sensation to soft touch and temperature intact in hands and feet. Results & Data Results & Data ([facility]) Vital Signs (Past 12 Hours) Vital Signs Temp Pulse Pulse Resp BP BP Pulse Ox 04/12/21 13:30 71 18 144/78 H 95 04/12/21 13:00 69 24 124/82 96 04/12/21 12:30 70 17 129/87 96 04/12/21 12:00 78 18 137/82 93 04/12/21 11:30 72 16 123/91 91 04/12/21 11:01 82 16 125/78 98 04/12/21 11:00 79 15 125/78 94 04/12/21 10:52 83 17 95 04/12/21 10:51 96 04/12/21 10:25 36.9 C 93 H 18 127/86 96 PG Care Time/CCT Total # of Minutes Spent Total Time Spent with Patient: Total time spent is greater than 50% in coordination of care (as documented) at patient's floor/unit and/or counseling patient: Coding Level of Care Code 83219 Initial Inpt Care Lvl 2 Diagnoses Choledocholithiasis K80.50 HTN (hypertension) I10 Obstructive sleep apnea G47.33 Fever R50.9
--- NOTE | 2021-04-12 14:23 | CT Scan Report ---
CT abd pelvis IV con only CLINICAL HISTORY: elevated LFTs, fever TECHNIQUE: Helical axial images of the abdomen and pelvis were obtained and displayed. Automated dose lowering techniques and/or adjustment according to patient size were utilized for this exam. This e xam was performed with intravenous contrast. COMPARISON: Comparison is made to CT abdomen and pelvis 04/27/2019 FINDINGS: Lower chest: For findings above the diaphragm, please see CT chest performed same day. Liver: Unremarkable. No focal lesions are seen. Gallbladder and biliary tree: Cholelithiasis is seen without evidence of cholecystitis. No intra- or extrahepatic biliary ductal dilation. Pancreas: Unremarkable, no focal lesions. Spleen: Splenomegaly is noted, the spleen measures Adrenals: Mild thickening of the bilateral adrenal glands is unchanged. Kidneys and ureters: A 3.4 cm exophytic simple cyst is in the left kidney inferior pole. Bladder: Unremarkable. Reproductive organs: Unremarkable. Bowel: Diverticulosis is seen without evidence of diverticulitis. Lymph nodes Retroperitoneal: Subcentimeter lymph nodes are noted. Mesenteric: Subcentimeter lymph nodes are noted. Pelvic: Unremarkable. Peritoneum: Normal Vessels: Atherosclerotic calcifications are seen. Abdominal wall: Bilateral fat-containing inguinal hernias are seen. Bones: Degenerative changes in the visualized spine. IMPRESSION: 1. No acute intra-abdominal abnormalities. 2. Large gallstones without evidence of cholecystitis. 3. Diffuse subcentimeter lymph nodes are nonspecific. ACT 112: Negative or not required by law. Electronically signed by: Elliot Smith M.D. 04/12/2021 2:22 PM
[2021-04-12] MEDS ORDERED: POTASSIUM CHLORIDE / WTR 10 MEQ/100 ML PLCT IV STA (14:42)
[2021-04-12] MEDS ORDERED: ACETAMINOPHEN 325 MG TAB PO PRN (16:00)
[2021-04-12] MEDS: SODIUM CHLORIDE 0.9% 1000ML 1,000 ML IV SCH (16:33)
[2021-04-12] MEDS: cefTRIAXone SODIUM 2,000 MG in DEXTROSE 5% 50 ML IV SCH (17:15)
[2021-04-12] MEDS: metroNIDAZOLE 500 MG/100 ML BAG IV SCH (17:15)
--- NOTE | 2021-04-12 19:59 | XRay Report ---
ORBIT RADIOGRAPHS 3 VIEWS HISTORY: pre-MRI screening. COMPARISON: None. FINDINGS: There are no radiopaque foreign bodies identified within the orbits. IMPRESSION: No radiopaque foreign bodies identified within the orbits. ACT 112: Negative or not required by law. Electronically signed by: Adán Peña M.D. 04/12/2021 7:57 PM
--- NOTE | 2021-04-12 20:22 | Ultrasound Report ---
ABDOMINAL ULTRASOUND, RIGHT UPPER QUADRANT HISTORY: cholelithiasis, r/o choledocholithiasis. COMPARISON: Abdomen and pelvis CT 04/12/2021. FINDINGS: Pancreas: The pancreas demonstrates a normal echotexture. Liver: The liver is echogenic consistent with fatty change. The main portal vein is patent. Focal fat ty sparing near the gallbladder fossa. Gallbladder: The gallbladder is filled with gallstones. No gallbladder wall thickening or pericholecy stic fluid. CBD: 5 mm. Right kidney: No hydronephrosis. IMPRESSION: 1. Cholelithiasis. No gallbladder wall thickening. 2. Normal caliber common bile duct. 3. Hepatic steatosis. ACT 112: Negative or not required by law. Electronically signed by: Adán Peña M.D. 04/12/2021 8:21 PM
[2021-04-12] MEDS: LORATADINE 10 MG TAB PO SCH (21:15)
[2021-04-12] MEDS: POTASSIUM CHLORIDE CRTAB 20 MEQ TABCR PO SCH (21:23)
--- NOTE | 2021-04-12 21:34 | Surgery Consultation ---
Date of Consultation April 12, 2021 Assessment & Plan (1) Elevated LFTs: Patient has been admitted on the hospitalist service proceeding as follows: There is concern the patient's elevated LFTs may be due to to choledocholithiasis particularly in the setting of known cholelithiasis. Prese ntly there is no evidence of cholecystitis. An MRCP has been ordered, which is pending, to help better ascertain if choledocholithiasis is present. Patient is presently n.p.o. which I would recommend continuing Due to concern for choledocholithiasis in the presence of fever patient has been placed on antibiotics in the form of Rocephin and Flagyl which should continue Patient is being hydrated with intravenous fluids with appropriate electrolyte supplementation. Recommend following serial laboratories GI consultation has been requested due to elevated LFTs and concern for choledocholithiasis. If the MRCP demonstrates choledocholithiasis and ERCP will likely be warranted. Cholecystectomy is being considered but will be dependent on what patient serial labs look like, MRCP results, and GI input. We will continue following with patient is hospitalized Supervising Physician Co-Signing Physician Notes Patient discussed with CATHY Garcia, labs and imaging reviewed, agree with above. 70 y/o male admitted with abd pain, n/v, and elevated tbili and lft's. CT with large gallstones, RUQUS with stones but no cholecystitis or dilated CBD. Will await MRCP and GI consult. LFT's may or may not be related to gallstones. Keep NPO for potential cholecystectomy. History of Present Illness Reason for Consultation: Cholelithiasis Attending Physician: Singh Hanna MD History of Present Illness Old male who presented to emergency department earlier today secondary to 2 to 3 days of abdominal bloating, fevers, poor appetite, and fatigue. Patient says he has never had these symptoms before and typically leads a very active lifestyle. He says that with his current presentation he has had fever as high as 103. He has not had any nausea or vomiting. He also denies any abdominal pain. He says since his symptoms began he has lost approximately 5 to 10 pounds. He also notes that he has had mostly liquid bowel movement since this has started. He notes that his urine is dark and concentrated. Patient denies any prior abdominal surgeries. Since admission the patient has had labs and imaging which I independently reviewed. A CT scan of patient's abdomen and pelvis showed no acute intra- abdominal abnormalities other than large gallstones without any evidence of cholecystitis. A gallbladder ultrasound also demonstrated cholelithiasis with no gallbladder wall thickening or other evidence of cholecystitis. Labs including CBC were white blood cell count and hemoglobin were normal. Patient's platelet count was low at 111,000. Chemistry profile showed his sodium and potassium were both low at 131 and 2.8 respectively. BUN and creatinine were both noted to be normal. Patient had LFT abnormalities including a total and direct bilirubin of 2.5 and 1.0 respectively. Transaminases were elevated with an AST of 69 and ALT of 135. Alkaline phosphatase was noted to be normal. Urinalysis was not indicative of infection. A Covid test was performed and was noted to be negative. Patient says when he is feeling well he is very active lifestyle riding his bicycle several times per week up to 16 miles at a time. With these activities he does not get any chest pain or shortness of breath. At time of my interview the patient is resting comfortably in bed he was in no distress Allergies Allergy/AdvReac Type Severity Reaction Status Date / Time sulfamethoxazole AdvReac Intermediate SEVERE GI Verified 04/12/21 11:33 [From Bactrim] UPSET trimethoprim [From Bactrim] AdvReac Intermediate SEVERE GI Verified 04/12/21 11:33 UPSET Home Medications Medication Instructions Recorded Confirmed Type cetirizine 10 mg capsule 10 mg PO DAILY PRN #90 cap 04/20/19 04/12/21 History epinephrine 0.3 mg/0.3 mL 0.3 mg IM Q10M PRN #2 ea 05/04/19 04/12/21 Rx injection, auto-injector (EpiPen 2-Sukumar) tadalafil 20 mg tablet 20 mg PO DAILY PRN #10 tab 06/20/20 04/12/21 Rx amlodipine 5 mg tablet 5 mg PO DAILY #90 tab 09/07/20 04/12/21 Rx indapamide 1.25 mg tablet 1.25 mg PO DAILY #90 tab 09/07/20 04/12/21 Rx atorvastatin 10 mg tablet 10 mg PO DAILY #90 tab 09/16/20 04/12/21 Rx lisinopril 20 mg tablet 20 mg PO BID 04/12/21 04/12/21 History Patient History Medical History Bilateral inguinal hernia Cellulitis Constipation Diverticulosis Eczema Elevated bilirubin Hypertension Hypertriglyceridemia Hypertriglyceridemia MSSA bacteremia Obstructive sleep apnea Spider bite wound Surgical History H/O Achilles tendon repair H/O cataract removal with insertion of prosthetic lens Family History Uncle Myocardial infarction Mother , age 60 Breast cancer Diverticulitis Cancer Hypertension Pancreatic neoplasm Father , age 39 Cancer Pancreatic neoplasm Denies family history of Ovarian cancer Colorectal cancer Social History Smoking Status: Never smoker Second Hand Exposure: No; Hx Alcohol Use: Yes Alcohol type: hard liquor Hx Substance Use: No Preferred Language: Estonian Communication Ability: Effective Visual Impairment: No Limitations Hearing Ability: Normal Surgical Processor Required: No Beliefs That Will Affect Care: None marital status: Current Living Situation: Spouse current occupational status: retired How many Children do You have: 2 Other Information That Helps Us Care for You: No Feels Safe at Home: Yes Safety Concerns: Feels Safe At This Time Childhood Exposure to Second-Hand Smoke: Yes caffeine: Yes Dental Care, Regularly: Yes Physical Activity Frequency: Daily Seatbelt Use: always Sunscreen Use: Yes Assistive Devices: CPAP Review of Systems Constitutional: + fever and + fatigue; no chills Eyes: no diplopia Ear, Nose, Mouth, Throat: no ear pain and no sore throat Respiratory: no cough and no dyspnea Cardiovascular: no chest pain Gastrointestinal: + early satiety and + diarrhea/loose stools; no abdominal pain, no nausea and no vomiting Genitourinary: no dysuria Musculoskeletal: no back pain Integumentary: no rash Neurologic: no localized weakness Physical Exam Constitutional: well developed and well nourished; no acute distress Eyes: + anicteric sclerae ENMT: Ears: no hearing impairment Mouth: no oropharynx abnormality No sublingual jaundice noted Neck: trachea midline Respiratory: normal respiratory effort, lungs clear to auscultation Cardiovascular: Rate/Rhythm: regular rate and regular rhythm Gastrointestinal (Abdomen): Abdomen is soft, nondistended, and nontender to palpation. Bowel sounds are present. [place] sign is noted to be negative. Musculoskeletal: No calf tenderness Skin: no rashes Neurologic: moves all extremities Psychiatric: A+Ox3, euthymic affect Results & Data ([place]) Vital Signs (Past 12 Hours) Vital Signs Temp Pulse Pulse Resp BP BP Pulse Ox 04/12/21 16:53 37.3 C 79 16 121/82 95 04/12/21 15:13 74 16 126/75 99 04/12/21 13:30 71 18 144/78 H 95 04/12/21 13:00 69 24 124/82 96 04/12/21 12:30 70 17 129/87 96 04/12/21 12:00 78 18 137/82 93 04/12/21 11:30 72 16 123/91 91 04/12/21 11:01 82 16 125/78 98 04/12/21 11:00 79 15 125/78 94 04/12/21 10:52 83 17 95 04/12/21 10:51 96 04/12/21 10:25 36.9 C 93 H 18 127/86 96 PG Care Time/CCT Total # of Minutes Spent Total Time Spent with Patient: Total time spent is greater than 50% in coordination of care (as documented) at patient's floor/unit and/or counseling patient: Coding Level of Care Code 16770 Inpt Consult Level 5 Diagnoses Elevated LFTs R79.89
[2021-04-13] MEDS: metroNIDAZOLE 500 MG/100 ML BAG IV SCH ×3 (01:22→19:15)
[2021-04-13] MEDS: SODIUM CHLORIDE 0.9% 1000ML 1,000 ML IV SCH ×3 (01:22→19:15)
[2021-04-13 06:29] LABS: Basophils # (auto) 0.07 K/uL (0-0.2); Basophils % (auto) 1.1 %; Eosinophils # (auto) 0.12 K/uL (0-0.5); Eosinophils % (auto) 1.9 %; Hematocrit (blood only) 37.2 % (42-52); Hemoglobin 13.8 g/dL (14.0-18.0); Immature Granulocytes # (auto) 0.05 K/uL (0.00-0.02); Immature Granulocytes % (auto) 0.8 %; Lymphocytes # (auto) 2.29 K/uL (1.2-3.4); Lymphocytes % (auto) 36.2 %; Mean Corpuscular Hemoglobin 32.9 pg (25-34); Mean Corpuscular Hgb Conc 37.1 g/dL (32-36); Mean Corpuscular Volume 88.6 fL (80-100); Mean Platelet Volume 10.9 fL (7.4-10.4); Monocytes # (auto) 0.72 K/uL (0.11-0.59); Monocytes % (auto) 11.4 %; Neutrophils # (auto) 3.07 K/uL (1.4-6.5); Neutrophils % (auto) 48.6 %; Platelet Count 138 K/uL (130-400); RDW Coefficient of Variation 12.7 % (11.5-14.5); RDW Standard Deviation 41.2 fL (36.4-46.3); White Blood Count 6.32 K/uL (4.8-10.8)
[2021-04-13 06:53] LABS: Albumin Level 2.6 gm/dl (3.4-5.0); BUN Creatinine Ratio 14.2 (10-20); Calcium 8.1 mg/dl (8.5-10.1); Creatinine Clr Calc Pharmacy 104.4 ml/min; Est GFR (African American) 104.3 ml/min; Magnesium 2.3 mg/dl (1.8-2.4); Potassium 3.2 mmol/L (3.5-5.1)
[2021-04-13 07:01] LABS: Albumin Globulin Ratio 0.7 (0.9-2); Bilirubin,Total 1.7 mg/dl (0.2-1); Globulin 3.7 gm/dl (2.5-4.0); Total Protein 6.3 gm/dl (6.4-8.2)
[2021-04-13 08:04] LABS: INR 1.1 (0.9-1.1); Partial Thromboplastin Ratio 1.2
--- NOTE | 2021-04-13 08:10 | Magnetic Resonance Report ---
MRCP CLINICAL HISTORY: elevated LFTs TECHNIQUE: Utilizing a 1.5 [place] magnet and dedicated coil, multiplanar, multiecho imaging of [facility] abdomen was performed utilizing heavily T2 weighted pulsing sequences without IV contrast. COMPARISON STUDY: CT of the abdomen and pelvis and right upper quadrant ultrasound April 12, 2021. FINDINGS: Small bilateral pleural effusions, right larger left, are incidentally noted. There is mild splenomegaly. No hepatic lesions are identified on this unenhanced examination. There is no intra or extrahepatic biliary ductal dilatation. Common bile duct measures 4 mm in caliber. Sensitivity for d etection of common bile duct calculi is diminished given motion artifact on the 3-D MRCP sequence how ever none are identified. The caliber of the main pancreatic duct is normal. There are multiple galls tones within the gallbladder. There is no pericholecystic fluid is no peripancreatic fluid. No peripa ncreatic fluid collection is present. 3.4 cm T2 hyperintense lesion arising from the lower pole of le ft kidney favors a cyst. There is no hydronephrosis. Caliber of visualized small and large bowel are normal. IMPRESSION: 1. Cholelithiasis. No evidence for acute cholecystitis. 2. No biliary ductal dilatation. Decreased sensitivity for detection of common bile duct calculi give n motion artifact but none identified. 3. Mild splenomegaly. ACT 112: Negative or not required by law. Electronically signed by: Sy Benito M.D. 04/13/2021 8:09 AM
[2021-04-13] MEDS: POTASSIUM CHLORIDE CRTAB 20 MEQ TABCR PO SCH ×3 (08:17→21:58)
[2021-04-13] MEDS: LORATADINE 10 MG TAB PO SCH (08:17)
[2021-04-13] MEDS: amLODIPine BESYLATE 5 MG TAB PO SCH (08:17)
[2021-04-13] MEDS: ATORVASTATIN 10 MG TAB PO SCH (08:17)
--- NOTE | 2021-04-13 09:32 | Gastrointestinal Consultation ---
Date of Consultation April 13, 2021 Assessment & Plan (1) Elevated LFTs: (2) Abdominal pain: (3) Fever: Mr. Elliot Ruiz is a 70 y/o male who presented with abd discomfort, bloating, fevers, poor PO intake, and lab/imaging findings concerning for cholelithiasis, and there is concern for possible choledocholithiasis/cholangitis given elevated LFTs and history of fever. We are consulted to consider ERCP. At present, abd soft, nontender; pt resting comfortably in bed. - Will plan for EUS, +/- ERCP today to provide evaluation for CBD stones/sludge/cholangitis and treatment as necessary - Please keep NPO - Agree with IV ABX - Please correct electrolytes as able - Continue IVF - Analgesia, antiemetics if needed - Trend LFTs, CBC Cholecystectomy is being considered by surgery Thank you for allowing us to participate in the care of this patient. Please call with any acute changes, questions or concerns. Please see addendum below with additional recommendation from my supervising physician. Supervising Physician Co-Signing Physician Notes I performed a history and physical examination of the patient today, including specifically on physical exam - soft abdomen. I have discussed the patient's ma nagement with the advanced practitioner. Please refer to the nurse practitioner's note for the documented findings and plan of care. EUS/ERCP History of Present Illness Reason for Consultation: ERCP, choledocolithiasis Requesting Physician: Dr. Hanna Attending Physician: Elliot Garcia, History of Present Illness This is a 70 male with PMHx IFG, NETO, HTN and others who presented to the ER yesterday w/ several days of abd bloating, fever, poor PO intake. He had OP labs notable for Tbili 2.7, AST 94, ALT 149 along with some hyponatremia and hypokalemia. On arrival LFTs down slightly but still elevated. CBC w/ no leukocytosis or anemia, renal fxn, lipase, INR WNL. COVID neg. RUQ US showed cholelithiasis with no gallbladder wall thickening or other evidence of cholecystitis. CTAP showed large gallstones. MRCP showed cholelithiasis, CBD 4, no obvious stones. He was started on empiric ABX and IVF. Overnight remains afebrile, no hypotension or tachycardia. At present feels ok; just hungry. He states he has known about his gallstones but they have never given him trouble previously. He is being evaluated by surgery for possible cholecystectomy. He notes dark urine since his symptoms started. He is having some liquid stool but no melena, hematochezia, no falk stools. Denies n/v, abd pain, CP, SOB, cough, leg edema. He is very active at baseline w/ biking. Social ETOH; no tobacco, AC or NSAID use. Allergies Allergy/AdvReac Type Severity Reaction Status Date / Time sulfamethoxazole AdvReac Intermediate SEVERE GI Verified 04/12/21 11:33 [From Bactrim] UPSET trimethoprim [From Bactrim] AdvReac Intermediate SEVERE GI Verified 04/12/21 11:33 UPSET Home Medications Medication Instructions Recorded Confirmed Type cetirizine 10 mg capsule 10 mg PO DAILY PRN #90 cap 04/20/19 04/12/21 History epinephrine 0.3 mg/0.3 mL 0.3 mg IM Q10M PRN #2 ea 05/04/19 04/12/21 Rx injection, auto-injector (EpiPen 2-Sukumar) tadalafil 20 mg tablet 20 mg PO DAILY PRN #10 tab 06/20/20 04/12/21 Rx amlodipine 5 mg tablet 5 mg PO DAILY #90 tab 09/07/20 04/12/21 Rx indapamide 1.25 mg tablet 1.25 mg PO DAILY #90 tab 09/07/20 04/12/21 Rx atorvastatin 10 mg tablet 10 mg PO DAILY #90 tab 09/16/20 04/12/21 Rx lisinopril 20 mg tablet 20 mg PO BID 04/12/21 04/12/21 History Patient History Medical History Bilateral inguinal hernia Cellulitis Cholelithiasis Constipation Diverticulosis Eczema Elevated bilirubin Hypertension Hypertriglyceridemia Hypertriglyceridemia MSSA bacteremia Obstructive sleep apnea Spider bite wound Surgical History H/O Achilles tendon repair H/O cataract removal with insertion of prosthetic lens Family History Uncle Myocardial infarction Mother , age 60 Breast cancer Diverticulitis Cancer Hypertension Pancreatic neoplasm Father , age 39 Cancer Pancreatic neoplasm Denies family history of Ovarian cancer Colorectal cancer Social History Smoking Status: Never smoker Second Hand Exposure: No; Hx Alcohol Use: Yes Alcohol type: hard liquor Hx Substance Use: No Preferred Language: Kazakh Communication Ability: Effective Visual Impairment: No Limitations 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 Beliefs That Will Affect Care: None marital status: Current Living Situation: Spouse current occupational status: retired How many Children do You have: 2 Other Information That Helps Us Care for You: No Feels Safe at Home: Yes Safety Concerns: Feels Safe At This Time Childhood Exposure to Second-Hand Smoke: Yes caffeine: Yes Dental Care, Regularly: Yes Physical Activity Frequency: Daily Seatbelt Use: always Sunscreen Use: Yes Assistive Devices: None Review of Systems Review of Systems: All systems reviewed & are unremarkable except as noted in Subjective Physical Exam Constitutional: WD/WN, vitals as above Eyes: PERRL, conjunctivae normal, anicteric sclerae Neck: trachea midline, no thyromegaly Respiratory: normal respiratory effort, lungs clear to auscultation Cardiovascular: RRR, no murmur, no edema Gastrointestinal (Abdomen): normal bowel sounds, soft, nontender, no hepatosplenomegaly Skin: no rashes, warm and dry slightly jaundiced Psychiatric: A+Ox3, euthymic affect Results & Data ([facility]) Vital Signs (Past 12 Hours) Vital Signs Temp Pulse Resp BP Pulse Ox 04/13/21 08:12 36.7 C 66 16 121/79 93 04/12/21 23:03 37.4 C 72 16 122/81 95 Laboratory Results 04/13/21 04/13/21 04/13/21 Range/Units 07:43 06:03 06:03 WBC 6.32 (4.8-10.8) K/uL RBC 4.20 L (4.7-6.1) M/uL Hgb 13.8 L (14.0-18.0) g/dL Hct 37.2 L (42-52) % MCV 88.6 (80-100) fL MCH 32.9 (25-34) pg MCHC 37.1 H (32-36) g/dL RDW Std Deviation 41.2 (36.4-46.3) fL RDW Coeff of Brittnee 12.7 (11.5-14.5) % Plt Count 138 (130-400) K/uL MPV 10.9 H (7.4-10.4) fL Immature Gran % (Auto) 0.8 % Neut % (Auto) 48.6 % Lymph % (Auto) 36.2 % [place] % (Auto) 11.4 % Eos % (Auto) 1.9 % Baso % (Auto) 1.1 % Neut # (Auto) 3.07 (1.4-6.5) K/uL Lymph # (Auto) 2.29 (1.2-3.4) K/uL [place] # (Auto) 0.72 H (0.11-0.59) K/uL Eos # (Auto) 0.12 (0-0.5) K/uL Baso # (Auto) 0.07 (0-0.2) K/uL Immature Gran # (Auto) 0.05 H (0.00-0.02) K/uL Neutrophils % (Manual) % Lymphocytes % (Manual) % Reactive Lymphs % (Man) % Monocytes % (Manual) % Eosinophils % (Manual) % Basophils % (Manual) % Plasma Cell % (Manual) % Neutrophils # (Manual) (1.4-6.5) K/uL Total Absolute Neuts (1.4-6.5) K/uL Lymphocytes # (Manual) (1.2-3.4) K/uL Reactive Lymphs # K/uL Total Abs Lymphocytes (1.2-3.4) K/uL Monocytes # (Manual) (0.11-0.59) K/uL Eosinophils # (Manual) (0-0.5) K/uL Basophils # (Manual) (0-0.2) K/uL Plasma Cell # (Manual) (0-0) K/uL Toxic Granulation Dohle Bodies PT 11.0 (9.0-12.0) Seconds INR 1.1 (0.9-1.1) APTT 32.0 H (21.0-31.0) Seconds PTT Ratio 1.2 Sodium 135 L (136-145) mmol/L Potassium 3.2 L (3.5-5.1) mmol/L Chloride 103 (98-107) mmol/L Carbon Dioxide 22 (21-32) mmol/L Anion Gap 10.0 (3-11) BUN 12 (7-18) mg/dl Creatinine 0.84 (0.6-1.4) mg/dl Est Cr Clr Drug Dosing 104.4 ml/min Est GFR ( Amer) 104.3 ml/min Est GFR (Non-Af Amer) 90.0 ml/min BUN/Creatinine Ratio 14.2 (10-20) Glucose 95 (70-99) mg/dl Calcium 8.1 L (8.5-10.1) mg/dl Magnesium 2.3 (1.8-2.4) mg/dl Total Bilirubin 1.7 H (0.2-1) mg/dl Direct Bilirubin (0-0.2) mg/dl AST 50 H (15-37) U/L ALT 106 H (12-78) U/L Alkaline Phosphatase 71 (45-117) U/L Total Protein 6.3 L (6.4-8.2) gm/dl Albumin 2.6 L (3.4-5.0) gm/dl Globulin 3.7 (2.5-4.0) gm/dl Albumin/Globulin Ratio 0.7 L (0.9-2) Lipase (73-393) U/L Urine Color Urine Appearance (Clear) Urine pH (4.5-7.5) Ur Specific [place] (1.000-1.030) Urine Protein (Negative) Urine Glucose (UA) (Negative) Urine Ketones (Negative) Urine Blood (Negative) Urine Nitrite (Negative) Urine Bilirubin (Negative) Urine Urobilinogen (Negative) Ur Leukocyte Esterase (Negative) Urine WBC (Auto) (0-5) /hpf Urine RBC (Auto) (0-4) /hpf U Hyaline Cast (Auto) (0-5) /lpf U Epithel Cells (Auto) (0-5) /lpf Urine Bacteria (Auto) (Negative) COVID-19 Eval Order SARS-CoV-2 (PCR) (Negative) 04/12/21 04/12/21 04/12/21 Range/Units 16:52 12:15 10:55 WBC (4.8-10.8) K/uL RBC (4.7-6.1) M/uL Hgb (14.0-18.0) g/dL Hct (42-52) % MCV (80-100) fL MCH (25-34) pg MCHC (32-36) g/dL RDW Std Deviation (36.4-46.3) fL RDW Coeff of Brittnee (11.5-14.5) % Plt Count (130-400) K/uL MPV (7.4-10.4) fL Immature Gran % (Auto) % Neut % (Auto) % Lymph % (Auto) % [place] % (Auto) % Eos % (Auto) % Baso % (Auto) % Neut # (Auto) (1.4-6.5) K/uL Lymph # (Auto) (1.2-3.4) K/uL [place] # (Auto) (0.11-0.59) K/uL Eos # (Auto) (0-0.5) K/uL Baso # (Auto) (0-0.2) K/uL Immature Gran # (Auto) (0.00-0.02) K/uL Neutrophils % (Manual) % Lymphocytes % (Manual) % Reactive Lymphs % (Man) % Monocytes % (Manual) % Eosinophils % (Manual) % Basophils % (Manual) % Plasma Cell % (Manual) % Neutrophils # (Manual) (1.4-6.5) K/uL Total Absolute Neuts (1.4-6.5) K/uL Lymphocytes # (Manual) (1.2-3.4) K/uL Reactive Lymphs # K/uL Total Abs Lymphocytes (1.2-3.4) K/uL Monocytes # (Manual) (0.11-0.59) K/uL Eosinophils # (Manual) (0-0.5) K/uL Basophils # (Manual) (0-0.2) K/uL Plasma Cell # (Manual) (0-0) K/uL Toxic Granulation Dohle Bodies PT (9.0-12.0) Seconds INR (0.9-1.1) APTT (21.0-31.0) Seconds PTT Ratio Sodium (136-145) mmol/L Potassium (3.5-5.1) mmol/L Chloride (98-107) mmol/L Carbon Dioxide (21-32) mmol/L Anion Gap (3-11) BUN (7-18) mg/dl Creatinine (0.6-1.4) mg/dl Est Cr Clr Drug Dosing ml/min Est GFR ( Amer) ml/min Est GFR (Non-Af Amer) ml/min BUN/Creatinine Ratio (10-20) Glucose (70-99) mg/dl Calcium (8.5-10.1) mg/dl Magnesium (1.8-2.4) mg/dl Total Bilirubin (0.2-1) mg/dl Direct Bilirubin 1.0 H (0-0.2) mg/dl AST (15-37) U/L ALT (12-78) U/L Alkaline Phosphatase (45-117) U/L Total Protein (6.4-8.2) gm/dl Albumin (3.4-5.0) gm/dl Globulin (2.5-4.0) gm/dl Albumin/Globulin Ratio (0.9-2) Lipase (73-393) U/L Urine Color Yellow Urine Appearance Clear (Clear) Urine pH 8.0 H (4.5-7.5) Ur Specific [place] 1.008 (1.000-1.030) Urine Protein Negative (Negative) Urine Glucose (UA) Negative (Negative) Urine Ketones Negative (Negative) Urine Blood Trace H (Negative) Urine Nitrite Negative (Negative) Urine Bilirubin Negative (Negative) Urine Urobilinogen Positive H (Negative) Ur Leukocyte Esterase Negative (Negative) Urine WBC (Auto) 1-5 (0-5) /hpf Urine RBC (Auto) 0-4 (0-4) /hpf U Hyaline Cast (Auto) 0 (0-5) /lpf U Epithel Cells (Auto) 0-5 (0-5) /lpf Urine Bacteria (Auto) Negative (Negative) COVID-19 Eval Order SARS-CoV-2 (PCR) NEGATIVE (Negative) 04/12/21 04/12/21 04/12/21 Range/Units 10:55 10:50 10:50 WBC 6.24 (4.8-10.8) K/uL RBC 4.46 L (4.7-6.1) M/uL Hgb 14.6 (14.0-18.0) g/dL Hct 39.8 L (42-52) % MCV 89.2 (80-100) fL MCH 32.7 (25-34) pg MCHC 36.7 H (32-36) g/dL RDW Std Deviation 40.8 (36.4-46.3) fL RDW Coeff of Brittnee 12.6 (11.5-14.5) % Plt Count 111 L (130-400) K/uL MPV 11.7 H (7.4-10.4) fL Immature Gran % (Auto) % Neut % (Auto) % Lymph % (Auto) % Dick[place] % (Auto) % Eos % (Auto) % Baso % (Auto) % Neut # (Auto) (1.4-6.5) K/uL Lymph # (Auto) (1.2-3.4) K/uL [place] # (Auto) (0.11-0.59) K/uL Eos # (Auto) (0-0.5) K/uL Baso # (Auto) (0-0.2) K/uL Immature Gran # (Auto) (0.00-0.02) K/uL Neutrophils % (Manual) 53.4 % Lymphocytes % (Manual) 20.9 % Reactive Lymphs % (Man) 14.2 % Monocytes % (Manual) 8.4 % Eosinophils % (Manual) 1.3 % Basophils % (Manual) 0.9 % Plasma Cell % (Manual) 0.9 % Neutrophils # (Manual) 3.33 (1.4-6.5) K/uL Total Absolute Neuts 3.33 (1.4-6.5) K/uL Lymphocytes # (Manual) 1.30 (1.2-3.4) K/uL Reactive Lymphs # 0.89 K/uL Total Abs Lymphocytes 2.25 (1.2-3.4) K/uL Monocytes # (Manual) 0.52 (0.11-0.59) K/uL Eosinophils # (Manual) 0.08 (0-0.5) K/uL Basophils # (Manual) 0.06 (0-0.2) K/uL Plasma Cell # (Manual) 0.06 H (0-0) K/uL Toxic Granulation 1+ Dohle Bodies 1+ PT (9.0-12.0) Seconds INR (0.9-1.1) APTT (21.0-31.0) Seconds PTT Ratio Sodium 131 L (136-145) mmol/L Potassium 2.8 L (3.5-5.1) mmol/L Chloride 96 L (98-107) mmol/L Carbon Dioxide 26 (21-32) mmol/L Anion Gap 9.0 (3-11) BUN 11 (7-18) mg/dl Creatinine 0.93 (0.6-1.4) mg/dl Est Cr Clr Drug Dosing 95.5 ml/min Est GFR ( Amer) 97.4 ml/min Est GFR (Non-Af Amer) 84.1 ml/min BUN/Creatinine Ratio 11.4 (10-20) Glucose 148 H (70-99) mg/dl Calcium 8.4 L (8.5-10.1) mg/dl Magnesium (1.8-2.4) mg/dl Total Bilirubin 2.5 H (0.2-1) mg/dl Direct Bilirubin (0-0.2) mg/dl AST 69 H (15-37) U/L ALT 135 H (12-78) U/L Alkaline Phosphatase 84 (45-117) U/L Total Protein 6.9 (6.4-8.2) gm/dl Albumin 3.1 L (3.4-5.0) gm/dl Globulin 3.8 (2.5-4.0) gm/dl Albumin/Globulin Ratio 0.8 L (0.9-2) Lipase 148 (73-393) U/L Urine Color Urine Appearance (Clear) Urine pH (4.5-7.5) Ur Specific [place] (1.000-1.030) Urine Protein (Negative) Urine Glucose (UA) (Negative) Urine Ketones (Negative) Urine Blood (Negative) Urine Nitrite (Negative) Urine Bilirubin (Negative) Urine Urobilinogen (Negative) Ur Leukocyte Esterase (Negative) Urine WBC (Auto) (0-5) /hpf Urine RBC (Auto) (0-4) /hpf U Hyaline Cast (Auto) (0-5) /lpf U Epithel Cells (Auto) (0-5) /lpf Urine Bacteria (Auto) (Negative) COVID-19 Eval Order Covid19 at [facility] SARS-CoV-2 (PCR) (Negative) Diagnostic Findings MRCP: FINDINGS: Small bilateral pleural effusions, right larger left, are incidentally noted. There is mild splenomegaly. No hepatic lesions are identified on this unenhanced examination. There is no intra or extrahepatic biliary ductal dilatation. Common bile duct measures 4 mm in caliber. Sensitivity for detection of common bile duct calculi is diminished given motion artifact on the 3-D MRCP sequence however none are identified. The caliber of the main pancreatic duct is normal. There are multiple gallstones within the gallbladder. There is no pericholecystic fluid is no peripancreatic fluid. No peripancreatic fluid collection is present. 3.4 cm T2 hyperintense lesion arising from the lower pole of left kidney favors a cyst. There is no hydronephrosis. Caliber of visualized small and large bowel are normal. IMPRESSION: 1. Cholelithiasis. No evidence for acute cholecystitis. 2. No biliary ductal dilatation. Decreased sensitivity for detection of common bile duct calculi given motion artifact but none identified. 3. Mild splenomegaly. CTAP: FINDINGS: Lower chest: For findings above the diaphragm, please see CT chest performed same day. Liver: Unremarkable. No focal lesions are seen. Gallbladder and biliary tree: Cholelithiasis is seen without evidence of cholecystitis. No intra- or extrahepatic biliary ductal dilation. Pancreas: Unremarkable, no focal lesions. Spleen: Splenomegaly is noted, the spleen measures Adrenals: Mild thickening of the bilateral adrenal glands is unchanged. Kidneys and ureters: A 3.4 cm exophytic simple cyst is in the left kidney inferior pole. Bladder: Unremarkable. Reproductive organs: Unremarkable. Bowel: Diverticulosis is seen without evidence of diverticulitis. Lymph nodes Retroperitoneal: Subcentimeter lymph nodes are noted. Mesenteric: Subcentimeter lymph nodes are noted. Pelvic: Unremarkable. Peritoneum: Normal Vessels: Atherosclerotic calcifications are seen. Abdominal wall: Bilateral fat-containing inguinal hernias are seen. Bones: Degenerative changes in the visualized spine. IMPRESSION: 1. No acute intra-abdominal abnormalities. 2. Large gallstones without evidence of cholecystitis. 3. Diffuse subcentimeter lymph nodes are nonspecific. RUQ US: FINDINGS: Pancreas: The pancreas demonstrates a normal echotexture. Liver: The liver is echogenic consistent with fatty change. The main portal vein is patent. Focal fatty sparing near the gallbladder fossa. Gallbladder: The gallbladder is filled with gallstones. No gallbladder wall thickening or pericholecystic fluid. CBD: 5 mm. Right kidney: No hydronephrosis. IMPRESSION: 1. Cholelithiasis. No gallbladder wall thickening. 2. Normal caliber common bile duct. 3. Hepatic steatosis.
[2021-04-13] MEDS: POTASSIUM CHLORIDE / WTR 10 MEQ/100 ML PLCT IV SCH ×3 (10:56→14:57)
--- NOTE | 2021-04-13 12:44 | Surgery Progress Note ---
Date of Service April 13, 2021 Assessment & Plan (1) Cholelithiasis: Plan: 70 y/o male with cholelithiasis. This may be etiology of symptoms, but unclear. ERCP today, will do lap elisa at same time plan for laparoscopic cholecystectomy with possible cholangiogram risks discussed to include but not limited to bleeding, infection, retained stone, bile leak, open surgery, damage to surrounding structures including bile duct, need for future or more extensive surgery, failure to treat symptoms, and risks of anesthesia. (2) Elevated LFTs: (3) HTN (hypertension): Admission and Anticipated Discharge Date Admission Date: April 12, 2021 Subjective 70 y/o male admitted for fevers, weight loss, and bloating/abd pain with elevated LFT's. Noted to have large gallstones. US with no cholecystitis, MRCP with no CBD stones. GI planning on EUS/ERCP today. Physical Exam Constitutional: WD/WN, vitals as above + obese Respiratory: normal respiratory effort, lungs clear to auscultation Cardiovascular: RRR, no murmur, no edema Gastrointestinal (Abdomen): normal bowel sounds, soft, nontender, no hepatosplenomegaly Results & Data ([facility]) Vital Signs (Past 12 Hours) Vital Signs Temp Pulse Resp BP Pulse Ox 04/13/21 08:12 36.7 C 66 16 121/79 93 Laboratory Results Laboratory Results - last 24 hr 04/12/21 04/12/21 04/13/21 10:55 16:52 06:03 WBC 6.32 RBC 4.20 L Hgb 13.8 L Hct 37.2 L MCV 88.6 MCH 32.9 MCHC 37.1 H RDW Std Deviation 41.2 RDW Coeff of Brittnee 12.7 Plt Count 138 MPV 10.9 H Immature Gran % (Auto) 0.8 Neut % (Auto) 48.6 Lymph % (Auto) 36.2 [place] % (Auto) 11.4 Eos % (Auto) 1.9 Baso % (Auto) 1.1 Neut # (Auto) 3.07 Lymph # (Auto) 2.29 [place] # (Auto) 0.72 H Eos # (Auto) 0.12 Baso # (Auto) 0.07 Immature Gran # (Auto) 0.05 H PT INR APTT PTT Ratio Sodium Potassium Chloride Carbon Dioxide Anion Gap BUN Creatinine Est Cr Clr Drug Dosing Est GFR ( Amer) Est GFR (Non-Af Amer) BUN/Creatinine Ratio Glucose Calcium Magnesium Total Bilirubin Direct Bilirubin 1.0 H AST ALT Alkaline Phosphatase Total Protein Albumin Globulin Albumin/Globulin Ratio SARS-CoV-2 (PCR) NEGATIVE 04/13/21 04/13/21 06:03 07:43 WBC RBC Hgb Hct MCV MCH MCHC RDW Std Deviation RDW Coeff of Brittnee Plt Count MPV Immature Gran % (Auto) Neut % (Auto) Lymph % (Auto) [place] % (Auto) Eos % (Auto) Baso % (Auto) Neut # (Auto) Lymph # (Auto) [place] # (Auto) Eos # (Auto) Baso # (Auto) Immature Gran # (Auto) PT 11.0 INR 1.1 APTT 32.0 H PTT Ratio 1.2 Sodium 135 L Potassium 3.2 L Chloride 103 Carbon Dioxide 22 Anion Gap 10.0 BUN 12 Creatinine 0.84 Est Cr Clr Drug Dosing 104.4 Est GFR ( Amer) 104.3 Est GFR (Non-Af Amer) 90.0 BUN/Creatinine Ratio 14.2 Glucose 95 Calcium 8.1 L Magnesium 2.3 Total Bilirubin 1.7 H Direct Bilirubin AST 50 H ALT 106 H Alkaline Phosphatase 71 Total Protein 6.3 L Albumin 2.6 L Globulin 3.7 Albumin/Globulin Ratio 0.7 L SARS-CoV-2 (PCR) PG Care Time/CCT Total # of Minutes Spent Total Time Spent with Patient: Total time spent is greater than 50% in coordination of care (as documented) at patient's floor/unit and/or counseling patient: Coding Level of Care Code 47232 Inpt Consult Level 3 Diagnoses Cholelithiasis K80.20 Elevated LFTs R79.89 HTN (hypertension) I10
--- NOTE | 2021-04-13 14:21 | Hospitalist Progress Note ---
Date of Service April 13, 2021 Assessment & Plan (1) Choledocholithiasis: Plan: Elliot is a 70-year-old male who presents with decreased appetite, abdominal bloating, elevated bilirubin, and elevated LFTs and imaging consistent with gallstones and who is admitted for management of choledocholithiasis - MRCP with cholelithiasis but no evidence of acute cholecystitis; no biliary ductal dilatation; decreased sensitivity for detection of CBD calculi given motion artifact but none identified; mild splenomegaly - Plan for ERCP/Lap Kisha this afternoon - Empiric Abx - Rocephine 2 g IV daily and Flagyl 500 mg Q8H - Hypokalemia due to poor oral intake/diarrhea - will give additional K riders and monitor electrolytes - GI/Surgery following - appreciate assistance (2) HTN (hypertension): Plan: - BP acceptable Amlodipine 5 mg daily Lisinopril 20 mg p.o. twice daily temporarily held for possible surgery - likely can resume pending AM labs (3) Obstructive sleep apnea: Plan: CPAP nightly as needed (4) Fever: Plan: Currently afebrile Plan: - Await surgical intervention; do not anticipate home needs Admission and Anticipated Discharge Date Admission Date: April 12, 2021 Subjective Reports feeling well overall. Still bloated but no pain. Remains afebrile. Is awaiting ERCP/Kisha. Verbalizes no new complaints Review of Systems Review of Systems: REVIEW OF SYSTEMS General/Constitutional: Denies fever/chills Cardiovascular: Denies chest pain, palpitations, edema Respiratory: Denies cough, SOB, wheezing GI: + bloating; Denies nausea, vomiting, abdominal pain, constipation, diarrhea : Denies dysuria Musculoskeletal: Denies joint/muscle aches Neurologic: Denies dizziness/lightheadedness Skin: Denies rash Physical Exam Physical Exam: PHYSICAL EXAM General Appearance: WDWN in NAD who is A&O x 3 HEENT: Head is normocephalic/atraumatic; Hearing grossly intact; Mucous membranes moist Neck: Supple; Trachea midline; Neg JVD Heart: RRR with no M/G/R Lungs: CTA in all lung hill bilaterally; Respirations unlabored; Neg accessory muscle use Abdomen: + Distended; Soft, non-tender; Positive BS x 4 quadrants Extremities: Neg cyanosis or edema Neurological: Speech clear; Gross motor/sensory function intact; Neg focal neurologic deficits Psychiatric: Appropriate mood/affect Skin: Normal Color; Warm/Dry Results & Data Results & Data ([facility]) Vital Signs (Past 12 Hours) Vital Signs Temp Pulse Resp BP Pulse Ox 04/13/21 08:12 36.7 C 66 16 121/79 93 PG Care Time/CCT Total # of Minutes Spent Total Time Spent with Patient: Total time spent is greater than 50% in coordination of care (as documented) at patient's floor/unit and/or counseling patient: Coding Level of Care Code 37404 Subseq Hosp Care Lvl 3 Diagnoses Choledocholithiasis K80.50 HTN (hypertension) I10 Obstructive sleep apnea G47.33 Fever R50.9
[2021-04-13] MEDS ORDERED: ROCURONIUM BROMIDE 10 MG/ML 5 ML VIAL IV ONE (15:08)
[2021-04-13] MEDS ORDERED: MIDAZOLAM HCL 1 MG/ML 2ML VIAL ONE (15:08)
[2021-04-13] MEDS ORDERED: fentaNYL citrate 100 MCG/2 ML VIAL ONE ×2 (15:08→17:07)
[2021-04-13] MEDS ORDERED: LIDOCAINE 2% 2 ML VIAL/AMP(20MG/ML) INFIL ONE (15:08)
[2021-04-13] MEDS ORDERED: DEXAMETHASONE SOD INJ 4 MG/ML VIAL ONE (15:08)
[2021-04-13] MEDS ORDERED: ONDANSETRON INJ 2 MG/ML 2 ML VIAL ONE (15:08)
[2021-04-13] MEDS ORDERED: PROPOFOL IV EMULSION 10 MG/ML 20 ML VIAL IV ONE (15:08)
[2021-04-13] MEDS ORDERED: ATROPINE SULFATE 0.1 MG/ML 10ML SYR IV PRN (15:11)
[2021-04-13] MEDS ORDERED: ONDANSETRON INJ 2 MG/ML 2 ML VIAL IV PRN ×2 (15:11→19:06)
[2021-04-13] MEDS ORDERED: ePHEDrine sulfate 50 MG/ML AMP IV PRN (15:11)
[2021-04-13] MEDS ORDERED: fentaNYL citrate 100 MCG/2 ML VIAL IV PRN (15:11)
[2021-04-13] MEDS ORDERED: HYDROmorphone INJ 1 MG/ML SYRINGE IV PRN (15:11)
--- NOTE | 2021-04-13 15:14 | Anesthesiology Consultation ---
Date of Service April 13, 2021 Assessment & Plan (1) Encounter for pre-operative examination: Chart Review Chart Review: Acceptable Risk for Surgery and Patient NOT seen in Pre Admission Testing covid neg 04/12/21 Consults Requested none History Surgery Operation Date: 04/13/21 09:40 Proposed Procedures p Endoscopic Ultrasonography Upper - MD spencer Yoo Endoscopic Retrograde Cholangiopancreatogram - MD spencer Yoo Laparoscopic Cholecystectomy - Justin Kline, DO, FACS Height/Weight Height: 5 ft 11 in Weight: 106.2 kg Allergies Allergy/AdvReac Type Severity Reaction Status Date / Time sulfamethoxazole AdvReac Intermediate SEVERE GI Verified 04/12/21 11:33 [From Bactrim] UPSET trimethoprim [From Bactrim] AdvReac Intermediate SEVERE GI Verified 04/12/21 11:33 UPSET Medications Home Medications Medication Instructions Recorded Confirmed Last Taken cetirizine 10 mg capsule 10 mg PO DAILY PRN #90 cap 04/20/19 04/12/21 12/14/19 epinephrine 0.3 mg/0.3 mL 0.3 mg IM Q10M PRN #2 ea 05/04/19 04/12/21 Unknown injection, auto-injector (EpiPen 2-Sukumar) tadalafil 20 mg tablet 20 mg PO DAILY PRN #10 tab 06/20/20 04/12/21 Unknown amlodipine 5 mg tablet 5 mg PO DAILY #90 tab 09/07/20 04/12/21 04/12/21 indapamide 1.25 mg tablet 1.25 mg PO DAILY #90 tab 09/07/20 04/12/21 04/12/21 atorvastatin 10 mg tablet 10 mg PO DAILY #90 tab 09/16/20 04/12/21 04/12/21 lisinopril 20 mg tablet 20 mg PO BID 04/12/21 04/12/21 04/12/21 Active Medications Generic Name Dose Route Start Last Admin Trade Name Freq PRN Reason Stop Dose Admin Amlodipine Besylate 5 mg 04/13/21 09:00 04/13/21 08:17 Amlodipine Besylate 5 Mg Tab PO 05/13/21 08:59 5 mg DAILY LUCI Administration Atorvastatin Calcium 10 mg 04/13/21 09:00 04/13/21 08:17 Atorvastatin 10 Mg Tab PO 05/13/21 08:59 10 mg DAILY LUCI Administration Sodium Chloride 1,000 mls @ 125 mls/hr 04/12/21 16:00 04/13/21 10:56 Nss 1000ml IV 05/12/21 15:59 125 mls/hr .Q8H LUCI Administration Ceftriaxone Sodium 2,000 mg/ 50 mls @ 100 mls/hr 04/12/21 17:00 04/12/21 17:45 Dextrose IV 04/22/21 16:59 Infused Q24H LUCI Infusion Protocol Metronidazole 500 mg in 100 mls @ 100 mls/hr 04/12/21 17:00 04/13/21 09:17 Flagyl IV 04/22/21 16:59 Infused Q8H LUCI Infusion Loratadine 10 mg 04/12/21 18:45 04/13/21 08:17 Loratadine 10 Mg Tab PO 05/12/21 18:44 10 mg QAM LUCI Administration Potassium Chloride 20 meq 04/12/21 21:00 04/13/21 12:50 Potassium Chloride Crtab 20 Meq Tabcr PO 04/13/21 21:01 20 meq TID LUCI Administration Past Medical History Medical History (Updated 04/13/21 @ 16:11 by Lei Chen MD) Bilateral inguinal hernia Cellulitis Cholelithiasis Constipation Diverticulosis Eczema Elevated bilirubin Encounter for pre-operative examination Hypertension Hypertriglyceridemia Hypertriglyceridemia MSSA bacteremia Obstructive sleep apnea Spider bite wound Past Family History Family History Uncle Myocardial infarction Mother , age 60 Breast cancer Diverticulitis Cancer Hypertension Pancreatic neoplasm Father , age 39 Cancer Pancreatic neoplasm Denies family history of Ovarian cancer Colorectal cancer Past Surgical History Surgical History H/O Achilles tendon repair H/O cataract removal with insertion of prosthetic lens Social History Smoking Status: Never smoker Hx Alcohol Use: Yes Alcohol type: hard liquor alcohol intake frequency: holidays/special occasions only Hx Substance Use: No substance use type: does not use Physical Exam Vital Signs Last Vital Signs Temp 37.4 C 04/13/21 15:00 Pulse 78 04/13/21 15:00 Resp 18 04/13/21 15:00 BP 131/89 04/13/21 15:00 Pulse Ox 94 04/13/21 15:00 Testing Laboratory Results 04/13/21 06:03 04/13/21 06:03 PT 11.0 Seconds (9.0-12.0) 04/13/21 07:43 INR 1.1 (0.9-1.1) 04/13/21 07:43 APTT 32.0 Seconds (21.0-31.0) H 04/13/21 07:43 Urine Color Yellow 04/12/21 12:15 Urine Appearance Clear (Clear) 04/12/21 12:15 Urine pH 8.0 (4.5-7.5) H 04/12/21 12:15 Ur Specific [place] 1.008 (1.000-1.030) 04/12/21 12:15 Urine Protein Negative (Negative) 04/12/21 12:15 Urine Glucose (UA) Negative (Negative) 04/12/21 12:15 Urine Ketones Negative (Negative) 04/12/21 12:15 Urine Nitrite Negative (Negative) 04/12/21 12:15 Ur Leukocyte Esterase Negative (Negative) 04/12/21 12:15 Urine WBC (Auto) 1-5 /hpf (0-5) 04/12/21 12:15 Urine RBC (Auto) 0-4 /hpf (0-4) 04/12/21 12:15 U Hyaline Cast (Auto) 0 /lpf (0-5) 04/12/21 12:15 U Epithel Cells (Auto) 0-5 /lpf (0-5) 04/12/21 12:15 Urine Bacteria (Auto) Negative (Negative) 04/12/21 12:15 Echocardiogram Date: 12/16/19 LV is normal in size. Normal LV wall thickness. LV systolic function is normal. EF 65-70% LV wall motion is normal. Grade 1 DD No significant valvular disease. No vegetations seen.
--- NOTE | 2021-04-13 15:22 | History & Physical Bridge Note ---
Date of Service April 13, 2021 History & Physical Bridge Note I have examined the patient, reviewed the History & Physical and in the interval since the performance of the History & Physical I have noted the following changes of clinical significance: no changes noted EUS/ERCP for suspected choledocholithiasis. Patient was explained in detail regarding risks, benefits, limitations and alternatives of the above endoscopic procedure. Risks of intravenous sedation used for procedure were also explained. Risks include, but not limited to perforation, bleeding, infection, respiratory distress, cardiac arrest and . Patient is also aware about the possibility of missed lesion. Patient's questions were answered. The patient verbalized understanding the information and agreed to undergo the procedure.
[2021-04-13] MEDS ORDERED: INDOMETHACIN 50 MG SUPP PR ONE (15:29)
[2021-04-13] MEDS ORDERED: BUPIVACAINE 0.5 % 5 MG/1 ML MPF 30ML VIAL ONE (15:29)
--- NOTE | 2021-04-13 16:25 | Operative Report ---
Post Operative Report Pre & Post Diagnosis Operation Date: 04/13/21 09:40 Pre-Op Diagnosis: CHOLEDOCOLITHIASIS Post-Op Diagnosis: CHOLEDOCOLITHIASIS I identified the patient and participated in the time-out.: Yes Procedure Operation Date: 04/13/21 09:40 Actual Procedures p Endoscopic Ultrasonography Upper - MD spencer Yoo Endoscopic Retrograde Cholangiopancreatogram - MD spencer Yoo Laparoscopic Cholecystectomy - Justin Kline DO, FACS Surgeon Mannie Parker MD Portrait Studio Photographer None Estimated Blood Loss 0 Findings See Below (Normal size CBD with no stones seen on EUS) Specimens None Description of Procedure EUS I attest to the content of the Intraoperative Record and any orders documented therein. Any exceptions are noted below.
--- NOTE | 2021-04-13 16:28 | GI REPORT ---
Patient Name: Elliot Ruiz Procedure Date: 04/13/2021 3:59 PM Date of : 1950 Admit Type: Inpatient Age: 70 Gender: Male Attending MD: Mannie Parker MD Procedure: Upper GI endoscopy Providers: Mannie Parker MD Referring MD: Elliot Garcia Indications: Abdominal pain Medicines: General Anesthesia Complications: No immediate complications. Estimated Blood Loss: Estimated blood loss: none. Procedure: Pre-Anesthesia Assessment: - Prior to the procedure, a History and Physical was performed, and patient medications, allergies and sensitivities were reviewed. The patient's tolerance of previous anesthesia was reviewed. - The risks and benefits of the procedure and the sedation options and risks were discussed with the patient. All questions were answered and informed consent was obtained. - Patient identification and proposed procedure were verified prior to the procedure by the physician and the nurse. The procedure was verified in the procedure room. - Pre-procedure physical examination revealed no contraindications to sedation. After obtaining informed consent, the endoscope was passed under direct vision. Throughout the procedure, the patient's blood pressure, pulse, and oxygen saturations were monitored continuously. The Endoscope was introduced through the mouth, and advanced to the second part of duodenum. The upper GI endoscopy was accomplished without difficulty. The patient tolerated the procedure well. Findings: The examined esophagus was normal. The entire examined stomach was normal. The duodenal bulb and second portion of the duodenum were normal. Impression: - Normal esophagus. - Normal stomach. - Normal duodenal bulb and second portion of the duodenum. - No specimens collected. Recommendation: - Perform an upper endoscopic ultrasound (UEUS) today. Mannie Parker MD 04/13/2021 4:27:33 PM This report has been signed electronically. Note Initiated On: 04/13/2021 3:59 PM Number of Addenda: 0 I attest to the content of the Intraoperative Record and orders documented therein, exceptions below {[id number]}
--- NOTE | 2021-04-13 16:32 | GI REPORT ---
Patient Name: Elliot Ruiz Procedure Date: 04/13/2021 4:02 PM Date of : 1950 Admit Type: Inpatient Age: 70 Gender: Male Attending MD: Mannie Parker MD Procedure: Upper EUS Providers: Mannie Parker MD Referring MD: Justin Calloway Do Indications: Elevated liver enzymes, Suspected choledocholithiasis Medicines: General Anesthesia Complications: No immediate complications. Estimated Blood Loss: Estimated blood loss: none. Procedure: Pre-Anesthesia Assessment: - Prior to the procedure, a History and Physical was performed, and patient medications, allergies and sensitivities were reviewed. The patient's tolerance of previous anesthesia was reviewed. - The risks and benefits of the procedure and the sedation options and risks were discussed with the patient. All questions were answered and informed consent was obtained. - Patient identification and proposed procedure were verified prior to the procedure by the physician and the nurse. The procedure was verified in the procedure room. - Pre-procedure physical examination revealed no contraindications to sedation. After obtaining informed consent, the endoscope was passed under direct vision. Throughout the procedure, the patient's blood pressure, pulse, and oxygen saturations were monitored continuously. The scope was introduced through the mouth, and advanced to the second part of duodenum. The upper EUS was accomplished without difficulty. The patient tolerated the procedure well. Findings: ENDOSONOGRAPHIC FINDING: : There was no sign of significant endosonographic abnormality in the ampulla. No masses were identified. There was no sign of significant endosonographic abnormality in the common bile duct. The maximum diameter of the duct was 4 mm. No stones and no biliary sludge were identified. Many stones were visualized endosonographically in the gallbladder. The stones were round. They were hyperechoic and characterized by shadowing. There was abnormal echogenicity in the visualized portion of the liver. This area was hyperechoic. Pancreatic parenchymal abnormalities were noted in the entire pancreas. These consisted of diffuse echogenicity, hyperechoic strands and hypoechoic foci. PD measured 2 mm in maximum diameter. The haynes were hyperechoic. There was no sign of significant endosonographic abnormality involving the celiac trunk. Impression: - There was no sign of significant pathology in the ampulla. - There was no sign of significant pathology in the common bile duct. No stones or sludge. - Many stones were visualized endosonographically in the gallbladder. - There was abnormal echogenicity in the visualized portion of the liver suggestive of fatty infiltration. - Pancreatic parenchymal abnormalities consisting of diffuse echogenicity, hyperechoic strands and foci were noted in the entire pancreas. - The celiac trunk was endosonographically normal. - No specimens collected. Recommendation: - [facility]. - Proceed with Lap elisa. Mannie Parker MD 04/13/2021 4:31:50 PM This report has been signed electronically. Note Initiated On: 04/13/2021 4:02 PM Number of Addenda: 0 I attest to the content of the Intraoperative Record and orders documented therein, exceptions below {[id number]}
[2021-04-13] MEDS ORDERED: GLYCOPYRROLATE 0.2 MG/ML VIAL ONE (16:45)
[2021-04-13] MEDS ORDERED: NEOSTIGMINE METHYLSULFATE 1 MG/ML 10ML VIAL ONE (16:45)
--- NOTE | 2021-04-13 17:37 | Operative Report ---
PG Post Operative Report Pre & Post Diagnosis Operation Date: 04/13/21 09:40 Pre-Op Diagnosis: CHOLELITHIASIS Post-Op Diagnosis: CHOLELITHIASIS I identified the patient and participated in the time-out.: Yes Procedure Operation Date: 04/13/21 09:40 Actual Procedures s Laparoscopic Cholecystectomy - Justin Kline DO, FACS Surgeon Justin Kline DO, FACS Benzene Worker None Estimated Blood Loss 5 Findings Consistent with Post-Op Diagnosis (Normal size CBD with no stones seen on EUS) EUS performed by GI, see the procedure note for details. No evidence of choledocholithiasis. Chronic cholecystitis with large gallstones. Critical view of safety obtained, cystic duct and artery doubly clipped and divided. Cystic artery avulsed, remnant grasped and clipped. Good hemostasis Specimens Gallbladder Anesthesia Type General Complications none Disposition Accompanied Patient To Recovery: No Disposition: Recovery Room Indications 70-year-old male presented with gallstones and mildly elevated liver enzymes and bilirubin, poor MRCP due to motion artifact, GI plan for EUS/ERCP in the operating room. Plan for laparoscopic cholecystectomy with possible cholangiogram to follow under the same anesthesia. The risks of the procedure were discussed, all questions were answered, and the patient agreed to proceed with surgery as planned. Description of Procedure The patient was properly identified, consented, and taken to the operating room where he was placed in the supine position. General endotracheal anesthesia was induced. SCDs and a safety belt were placed. An endoscopic ultrasound was performed by Dr. Mason prior to the procedure. He found no evidence of choledocholithiasis and did not proceed with ERCP. For further details, please refer to his procedure note. Preoperative antibiotics were administered. The patient's abdomen was prepped and draped in the standard sterile fashion. A surgical timeout was performed and all parties were in agreement that this was the correct patient and procedure to be performed and we continued as planned. An incision was made superior and to the left of the umbilicus overlying the rectus muscle and the Veress needle was inserted. Saline drop test confirmed entry into the peritoneum. The abdomen was insufflated with carbon dioxide which the patient tolerated without incident. The abdomen was then entered using the Optiview technique and a 5 mm trocar. The laparoscope was inserted and no damage from initial trocar or Veress needle placement was noted, no gross abnormalities were noted within the 4 quadrants of the abdomen. An 11 mm port was placed in the subxiphoid position and two 5 mm ports were then placed in the right subcostal position. The patient was placed in reverse Trendelenburg position and rotated towards the left. The gallbladder appeared moderately and chronically inflamed. There were multiple large gallstones which made grasping it more difficult. The dome of the gallbladder was retracted towards the left upper quadrant and the infundibulum was retracted toward the right lower quadrant revealing Calot's triangle. Peritoneal attachments were taken down with electrocautery and blunt dissection. The cystic duct and artery were circumferentially dissected. A window of safety was obtained showing the cystic duct entering the gallbladder with no aberrant structures noted. The cystic duct was doubly clipped and divided. During the dissection of the cystic artery it avulsed and the remnant was grasped and was doubly clipped. Hemostasis appeared excellent. The gallbladder was then lifted off the gallbladder fossa with electrocautery. The gallbladder was placed in an Endo Catch bag and removed through the subxiphoid port site. The subxiphoid incision had to be extended to allow for the size of the gallstones in the gallbladder. The right upper quadrant was irrigated and hemostasis was found to be good. 5 mm trochars were removed under direct visualization and the abdomen was allowed to collapse. The subxiphoid port site fascia was closed with running 0 Vicryl suture. The wound was irrigated, and the skin of all ports was closed with 4-0 Monocryl subcuticular sutures. Dermabond was placed over the wounds. The patient was extubated in the operating room and taken to the PACU where he recovered without apparent incident. All sponge, instrument and needle counts were correct at the conclusion of the procedure. The patient tolerated the procedure well. I attest to the content of the Intraoperative Record and any orders documented therein. Any exceptions are noted below.
--- NOTE | 2021-04-13 18:58 | Anesthesiology Progress Note ---
Date of Service April 13, 2021 Anesthesia Post Procedure Vital Signs Vital Signs: Temp Pulse Pulse Resp BP Pulse Ox 04/13/21 18:50 72 20 132/85 93 04/13/21 18:40 70 20 120/79 93 04/13/21 18:30 96.8 F L 75 18 124/79 93 04/13/21 18:20 80 16 122/84 93 04/13/21 18:10 78 16 121/79 93 04/13/21 18:00 76 17 122/74 93 04/13/21 17:50 75 23 120/84 92 04/13/21 17:43 96.8 F L 83 20 133/75 93 04/13/21 15:00 99.3 F 78 18 131/89 94 04/13/21 08:12 98.1 F 66 16 121/79 93 04/12/21 23:03 99.3 F 72 16 122/81 95 Pain Intensity Abdomen: Pain Intensity: 4 Transfer of Care Handoff Completed per policy Notes Mental Status: alert / awake / arousable and participated in evaluation Patient Amnestic to Procedure: Yes Nausea / Vomiting: adequately controlled Pain: adequately controlled Airway Patency, RR, SpO2: stable & adequate BP & HR: stable & adequate Hydration State: stable & adequate Anesthetic Complications: no major complications apparent and Pt Satisfied with anesthetic care
[2021-04-13] MEDS ORDERED: MoRPHine SULFATE 2 MG/ML CARP IV PRN (19:06)
[2021-04-13] MEDS ORDERED: oxyCODONE/ACETAMINOPHEN 5mg/325mg TAB PO PRN (19:06)
[2021-04-13] MEDS ORDERED: MoRPHine SULFATE 4 MG/ML 1 ML CARP\\VIAL IV PRN (19:06)
[2021-04-13] MEDS: cefTRIAXone SODIUM 2,000 MG in DEXTROSE 5% 50 ML IV SCH (19:15)
[2021-04-13] MEDS ORDERED: Nursing to Pharmacy Communication SCH (19:30)
[2021-04-14] MEDS: oxyCODONE/ACETAMINOPHEN 5mg/325mg TAB PO PRN ×5 (00:07→18:50)
[2021-04-14] MEDS: SODIUM CHLORIDE 0.9% 1000ML 1,000 ML IV SCH ×2 (00:09→05:47)
[2021-04-14] MEDS: metroNIDAZOLE 500 MG/100 ML BAG IV SCH ×2 (02:46→11:52)
[2021-04-14 06:42] LABS: ALC (manual) 1.22 K/uL (1.2-3.4); ANC (manual) 8.71 K/uL (1.4-6.5); Basophils # (manual) 0.09 K/uL (0-0.2); Basophils % (manual) 0.9 %; Hematocrit (blood only) 39.2 % (42-52); Hemoglobin 14.4 g/dL (14.0-18.0); Lymphocytes # (manual) 1.22 K/uL (1.2-3.4); Lymphocytes % (manual) 12.1 %; Mean Corpuscular Hemoglobin 32.7 pg (25-34); Mean Corpuscular Hgb Conc 36.7 g/dL (32-36); Mean Corpuscular Volume 89.1 fL (80-100); Mean Platelet Volume 10.5 fL (7.4-10.4); Monocytes # (manual) 0.09 K/uL (0.11-0.59); Monocytes % (manual) 0.9 %; Neutrophils # (manual) 8.71 K/uL (1.4-6.5); Neutrophils % (manual) 86.1 %; Platelet Count 235 K/uL (130-400); RDW Coefficient of Variation 12.6 % (11.5-14.5); RDW Standard Deviation 40.8 fL (36.4-46.3); White Blood Count 10.12 K/uL (4.8-10.8)
[2021-04-14 07:23] LABS: Albumin Globulin Ratio 0.8 (0.9-2); Albumin Level 2.8 gm/dl (3.4-5.0); BUN Creatinine Ratio 19.6 (10-20); Bilirubin,Total 1.1 mg/dl (0.2-1); Calcium 7.9 mg/dl (8.5-10.1); Creatinine Clr Calc Pharmacy 91.3 ml/min; Est GFR (African American) 93.8 ml/min; Est GFR (Non-African American) 80.9 ml/min; Globulin 3.7 gm/dl (2.5-4.0); Potassium 4.2 mmol/L (3.5-5.1); Total Protein 6.5 gm/dl (6.4-8.2)
[2021-04-14] MEDS: amLODIPine BESYLATE 5 MG TAB PO SCH (08:52)
[2021-04-14] MEDS: LORATADINE 10 MG TAB PO SCH (08:54)
[2021-04-14] MEDS: ATORVASTATIN 10 MG TAB PO SCH (08:54)
--- NOTE | 2021-04-14 12:25 | Surgery Progress Note ---
Date of Service April 14, 2021 Assessment & Plan (1) Hx laparoscopic cholecystectomy: Plan: POD#1 lap cholecystectomy and EUS, no e/o choledocholithiasis. GB may or may not have been contributing to symptoms. advance diet as tolerated, h/l iv no need for continued abx from surgery standpoint okay to d/c from surgery standpoint activity restrictions, wound care instructions, and return precautions reviewed f/u in 2 weeks in gen surg clinic Dr. Leach covering over weekend Admission and Anticipated Discharge Date Admission Date: April 12, 2021 Subjective POD#1 lap elisa and EUS, doing well. Pain controlled with meds. Still feels bloated after eating. On clear liquids. Physical Exam Constitutional: WD/WN, vitals as above + obese Gastrointestinal (Abdomen): normal bowel sounds, soft, nontender, no hepatospl enomegaly Inspection/Auscultation: + abdominal surgical incision (healing well) Results & Data ([facility]) Vital Signs (Past 12 Hours) Vital Signs Temp Pulse Resp BP Pulse Ox 04/14/21 07:30 36.6 C 70 16 117/71 90 04/14/21 02:42 36.6 C 68 16 111/74 92 Diagnostic Findings Laboratory Results - last 24 hr 04/14/21 04/14/21 05:52 05:52 WBC 10.12 RBC 4.40 L Hgb 14.4 Hct 39.2 L MCV 89.1 MCH 32.7 MCHC 36.7 H RDW Std Deviation 40.8 RDW Coeff of Brittnee 12.6 Plt Count 235 D MPV 10.5 H Neutrophils % (Manual) 86.1 Lymphocytes % (Manual) 12.1 Monocytes % (Manual) 0.9 Basophils % (Manual) 0.9 Neutrophils # (Manual) 8.71 H Total Absolute Neuts 8.71 H Lymphocytes # (Manual) 1.22 Total Abs Lymphocytes 1.22 Monocytes # (Manual) 0.09 L Basophils # (Manual) 0.09 Sodium 133 L Potassium 4.2 D Chloride 104 Carbon Dioxide 20 L Anion Gap 9.0 BUN 19 H D Creatinine 0.96 Est Cr Clr Drug Dosing 91.3 Est GFR ( Amer) 93.8 Est GFR (Non-Af Amer) 80.9 BUN/Creatinine Ratio 19.6 Glucose 193 H Calcium 7.9 L Total Bilirubin 1.1 H AST 62 H ALT 118 H Alkaline Phosphatase 70 Total Protein 6.5 Albumin 2.8 L Globulin 3.7 Albumin/Globulin Ratio 0.8 L PG Care Time/CCT Total # of Minutes Spent Total Time Spent with Patient: Total time spent is greater than 50% in coordination of care (as documented) at patient's floor/unit and/or counseling patient: Coding Level of Care Code None Diagnoses Hx laparoscopic cholecystectomy Z90.49
--- NOTE | 2021-04-14 17:27 | Hospitalist Progress Note ---
Date of Service April 14, 2021 Assessment & Plan (1) Cholelithiasis: Plan: Elliot is a 70-year-old male who presents with decreased appetite, abdominal bloating, elevated bilirubin, and elevated LFTs and imaging consistent with gallstones - MRCP with cholelithiasis but no evidence of acute cholecystitis; no biliary ductal dilatation; decreased sensitivity for detection of CBD calculi given motion artifact but none identified; mild splenomegaly - S/P EUS/Lap Kisha on 04/13 - Stopped Abx - Utilized Rocephin 2 g IV daily and Flagyl 500 mg Q8H - Hypokalemia due to poor oral intake/diarrhea - resolved - GI/Surgery following - appreciate assistance -- Cleared for D/C from surgical perspective - F/U in 2 weeks in gen surg clinic (2) HTN (hypertension): Plan: - BP acceptable Amlodipine 5 mg daily and Lisinopril 20 mg daily; Indapamide 1.25 mg daily (3) Obstructive sleep apnea: Plan: CPAP nightly as needed (4) Fever: Plan: Currently afebrile Plan: - Monitor diet tolerance and likely home tomorrow; do not anticipate home needs Admission and Anticipated Discharge Date Admission Date: April 12, 2021 Subjective Reports feeling well today. Tolerated a clear liquid diet and has advanced diet for this evening. Some bloating but feels like this may be improving. Electrolytes are improved. Verbalizes no new complaints at this time Review of Systems Review of Systems: REVIEW OF SYSTEMS General/Constitutional: Denies fever/chills Cardiovascular: Denies chest pain, palpitations, edema Respiratory: Denies cough, SOB, wheezing GI: + bloating (improving); Denies nausea, vomiting, abdominal pain, constipation, diarrhea : Denies dysuria Musculoskeletal: Denies joint/muscle aches Neurologic: Denies dizziness/lightheadedness Skin: Denies rash Physical Exam Physical Exam: PHYSICAL EXAM General Appearance: WDWN in NAD who is A&O x 3 HEENT: Head is normocephalic/atraumatic; Hearing grossly intact; Mucous membranes moist Neck: Supple; Trachea midline; Neg JVD Heart: RRR with no M/G/R Lungs: CTA in all lung hill bilaterally; Respirations unlabored; Neg accessory muscle use Abdomen: + Distended; Soft, non-tender; Positive BS x 4 quadrants; lap incisions well approximated with dermabond placed without drainage or erythema Extremities: Neg cyanosis or edema Neurological: Speech clear; Gross motor/sensory function intact; Neg focal neurologic deficits Psychiatric: Appropriate mood/affect Skin: Normal Color; Warm/Dry Results & Data Results & Data ([facility]) Vital Signs (Past 12 Hours) Vital Signs Temp Pulse Resp BP Pulse Ox 04/14/21 14:29 36.5 C 71 16 142/82 H 94 04/14/21 12:37 36.5 C 68 17 130/72 92 04/14/21 07:30 36.6 C 70 16 117/71 90 PG Care Time/CCT Total # of Minutes Spent Total Time Spent with Patient: Total time spent is greater than 50% in coordination of care (as documented) at patient's floor/unit and/or counseling patient: Coding Level of Care Code 88027 Subseq Hosp Care Lvl 3 Diagnoses HTN (hypertension) I10 Obstructive sleep apnea G47.33 Fever R50.9 Cholelithiasis K80.20
[2021-04-14] MEDS: cefTRIAXone SODIUM 2,000 MG in DEXTROSE 5% 50 ML IV SCH (17:40)
[2021-04-14] MEDS: lisinopril 20 MG TAB PO SCH (20:37)
[2021-04-14] MEDS ORDERED: PSYLLIUM 58.6% POWDER PACKET PO SCH (21:00)
[2021-04-14] MEDS ORDERED: diphenhydrAMINE Capsule 25 MG CAP PO ONE (23:54)
[2021-04-15] MEDS ORDERED: traMADol HCL 50 MG TABLET ONE (03:32)
[2021-04-15] MEDS: traMADol HCL 50 MG TABLET PO PRN ×3 (03:35→12:04)
[2021-04-15 07:27] LABS: Hematocrit (blood only) 37.7 % (42-52); Hemoglobin 13.5 g/dL (14.0-18.0); Mean Corpuscular Hemoglobin 32.5 pg (25-34); Mean Corpuscular Hgb Conc 35.8 g/dL (32-36); Mean Corpuscular Volume 90.8 fL (80-100); Mean Platelet Volume 9.8 fL (7.4-10.4); Platelet Count 241 K/uL (130-400); RDW Coefficient of Variation 12.9 % (11.5-14.5); RDW Standard Deviation 43.1 fL (36.4-46.3); Red Blood Count 4.15 M/uL (4.7-6.1); White Blood Count 10.08 K/uL (4.8-10.8)
[2021-04-15 07:50] LABS: Albumin Level 2.7 gm/dl (3.4-5.0); BUN Creatinine Ratio 14.6 (10-20); Calcium 8.1 mg/dl (8.5-10.1); Creatinine Clr Calc Pharmacy 99.6 ml/min; Est GFR (African American) 102.3 ml/min; Est GFR (Non-African American) 88.3 ml/min; Potassium 3.3 mmol/L (3.5-5.1)
--- NOTE | 2021-04-15 07:52 | Surgery Progress Note ---
Date of Service April 15, 2021 Assessment & Plan (1) Cholelithiasis: Plan: Elliot is a 70-year-old male who presents with decreased appetite, abdominal bloating, elevated bilirubin, and elevated LFTs and imaging consistent with gallstones - MRCP with cholelithiasis but no evidence of acute cholecystitis; no biliary ductal dilatation; decreased sensitivity for detection of CBD calculi given motion artifact but none identified; mild splenomegaly - S/P EUS/Lap Kisha on 04/13 - Stopped Abx - Utilized Rocephin 2 g IV daily and Flagyl 500 mg Q8H - Hypokalemia due to poor oral intake/diarrhea - resolved - GI/Surgery following - appreciate assistance -- Cleared for D/C from surgical perspective - F/U in 2 weeks in gen surg clinic (2) HTN (hypertension): Plan: - BP acceptable Amlodipine 5 mg daily and Lisinopril 20 mg daily; Indapamide 1.25 mg daily (3) Obstructive sleep apnea: Plan: CPAP nightly as needed (4) Fever: Plan: Currently afebrile Plan: Home today; follow-up 2 weeks in general surgery clinic Admission and Anticipated Discharge Date Admission Date: April 12, 2021 Subjective Feeling well this morning. Tolerating diet. Had a bad experience with Percocet, switch to tramadol, pain under control. Denies nausea or vomiting. Physical Exam Constitutional: WD/WN, vitals as above Eyes: PERRL, conjunctivae normal, anicteric sclerae Gastrointestinal (Abdomen): Inspection/Auscultation: abdomen normal to inspection and + abdominal surgical incision (Healing well without erythema or discharge); abdomen not distended Percussion/Palpation: abdomen soft; abdomen nontender, no guarding and abdomen not rigid Skin: no rashes, warm and dry Psychiatric: A+Ox3, euthymic affect Results & Data ([facility]) Vital Signs (Past 12 Hours) Vital Signs Temp Pulse Resp BP Pulse Ox 04/14/21 22:34 36.5 C 67 16 118/73 93 Laboratory Results 04/15/21 04/15/21 Range/Units 06:49 06:49 WBC 10.08 (4.8-10.8) K/uL RBC 4.15 L (4.7-6.1) M/uL Hgb 13.5 L (14.0-18.0) g/dL Hct 37.7 L (42-52) % MCV 90.8 (80-100) fL MCH 32.5 (25-34) pg MCHC 35.8 (32-36) g/dL RDW Std Deviation 43.1 (36.4-46.3) fL RDW Coeff of Brittnee 12.9 (11.5-14.5) % Plt Count 241 (130-400) K/uL MPV 9.8 (7.4-10.4) fL Sodium 135 L (136-145) mmol/L Potassium 3.3 L D (3.5-5.1) mmol/L Chloride 105 (98-107) mmol/L Carbon Dioxide 23 (21-32) mmol/L Anion Gap 7.0 (3-11) BUN 13 (7-18) mg/dl Creatinine 0.88 (0.6-1.4) mg/dl Est Cr Clr Drug Dosing 99.6 ml/min Est GFR ( Amer) 102.3 ml/min Est GFR (Non-Af Amer) 88.3 ml/min BUN/Creatinine Ratio 14.6 (10-20) Glucose 130 H (70-99) mg/dl Calcium 8.1 L (8.5-10.1) mg/dl Total Bilirubin Pending AST 110 H (15-37) U/L ALT 141 H (12-78) U/L Alkaline Phosphatase Pending Total Protein Pending Albumin 2.7 L (3.4-5.0) gm/dl Globulin Pending Albumin/Globulin Ratio Pending
[2021-04-15 08:03] LABS: Albumin Globulin Ratio 0.8 (0.9-2); Globulin 3.5 gm/dl (2.5-4.0); Total Protein 6.2 gm/dl (6.4-8.2)
[2021-04-15] MEDS: ATORVASTATIN 10 MG TAB PO SCH (08:28)
[2021-04-15] MEDS: lisinopril 20 MG TAB PO SCH (08:28)
[2021-04-15] MEDS: LORATADINE 10 MG TAB PO SCH (08:28)
[2021-04-15] MEDS: amLODIPine BESYLATE 5 MG TAB PO SCH (08:28)
[2021-04-15] MEDS ORDERED: INDAPAMIDE 1.25 MG TAB PO SCH (09:00)
[2021-04-15] MEDS ORDERED: SIMETHICONE 80 MG CHEW PO STA (09:34)
--- NOTE | 2021-04-15 14:36 | Discharge Summary ---
Date of Service April 15, 2021 Admission HPI Per Admitting Provider Elliot Ruiz is a 70yo M who presents for evaluation of severe bloating. NOtes his symptoms began since Saturday (4-5 days ago) and has not been able to keep anything down except liquids. Thought he has a gastritis/flu at first, but still hasn't been able to eat. NO appetite, has not tried eating. Denies pain, but endorses bloating discomfort in his mid/right abdomen. Bowel movements have slowed down since not eating, zavala colored BMs the last few days whereas are normally brown. No blood/melena. No history of HI, heart disease NO history of asthma or breathing problems No vision change Feels fatigued last week, no focal weakness Medical History: Reviewed. Sleep apnea on CPAP and HTN. Medications: Reviewed. Took medicines this morning. Surgical History: Reviewed, achilles tendon repair. FHX: Brother with gallstones. Otherwise Noncontributory Allergies: Reviewed, allergic to sulfa (GI upset)> Social History: No tobacco use, rare social alcohol, no recreational drug or medical marijuana use. Code Status: Full Code Principal Diagnosis Cholelithiasis S/P Lap Kisha Discharge Exam PHYSICAL EXAM General Appearance: WDWN in NAD who is A&O x 3 HEENT: Head is normocephalic/atraumatic; Hearing grossly intact; Mucous membranes moist Neck: Supple; Trachea midline; Neg JVD Heart: RRR with no M/G/R Lungs: CTA in all lung hill bilaterally; Respirations unlabored; Neg accessory muscle use Abdomen: Soft, tender around incisions; Positive BS x 4 quadrants; lap incisions well approximated with dermabond placed without drainage or erythema Extremities: Neg cyanosis or edema Neurological: Speech clear; Gross motor/sensory function intact; Neg focal neurologic deficits Psychiatric: Appropriate mood/affect Skin: Normal Color; Warm/Dry Discharge Data Allergies Allergy/AdvReac Type Severity Reaction Status Date / Time sulfamethoxazole AdvReac Intermediate SEVERE GI Verified 04/12/21 11:33 [From Bactrim] UPSET trimethoprim [From Bactrim] AdvReac Intermediate SEVERE GI Verified 04/12/21 11:33 UPSET Consultations 04/12/21 14:33 ED Decision to Admit Stat 04/12/21 16:00 Consult Gastroenterology Routine Consult General Surgery Routine Procedures Performed Operation Date: 04/13/21 09:40 Actual Procedures p Endoscopic Ultrasonography Upper - Mannie Parker MD s Laparoscopic Cholecystectomy - Justin Kline, DO, FACS Ordered Studies Abdomen/Pelvis CT 04/12/21 12:03 CT abd pelvis IV con only CLINICAL HISTORY: elevated LFTs, fever TECHNIQUE: Helical axial images of the abdomen and pelvis were obtained and displayed. Automated dose lowering techniques and/or adjustment according to patient size were utilized for this exam. This exam was performed with intravenous contrast. COMPARISON: Comparison is made to CT abdomen and pelvis 04/27/2019 FINDINGS: Lower chest: For findings above the diaphragm, please see CT chest performed same day. Liver: Unremarkable. No focal lesions are seen. Gallbladder and biliary tree: Cholelithiasis is seen without evidence of cholecystitis. No intra- or extrahepatic biliary ductal dilation. Pancreas: Unremarkable, no focal lesions. Spleen: Splenomegaly is noted, the spleen measures Adrenals: Mild thickening of the bilateral adrenal glands is unchanged. Kidneys and ureters: A 3.4 cm exophytic simple cyst is in the left kidney inferior pole. Bladder: Unremarkable. Reproductive organs: Unremarkable. Bowel: Diverticulosis is seen without evidence of diverticulitis. Lymph nodes Retroperitoneal: Subcentimeter lymph nodes are noted. Mesenteric: Subcentimeter lymph nodes are noted. Pelvic: Unremarkable. Peritoneum: Normal Vessels: Atherosclerotic calcifications are seen. Abdominal wall: Bilateral fat-containing inguinal hernias are seen. Bones: Degenerative changes in the visualized spine. IMPRESSION: 1. No acute intra-abdominal abnormalities. 2. Large gallstones without evidence of cholecystitis. 3. Diffuse subcentimeter lymph nodes are nonspecific. ACT 112: Negative or not required by law. Electronically signed by: Elliot Smith M.D. 04/12/2021 2:22 PM Gallbladder Ultrasound 04/12/21 16:30 ABDOMINAL ULTRASOUND, RIGHT UPPER QUADRANT HISTORY: cholelithiasis, r/o choledocholithiasis. COMPARISON: Abdomen and pelvis CT 04/12/2021. FINDINGS: Pancreas: The pancreas demonstrates a normal echotexture. Liver: The liver is echogenic consistent with fatty change. The main portal vein is patent. Focal fatty sparing near the gallbladder fossa. Gallbladder: The gallbladder is filled with gallstones. No gallbladder wall thickening or pericholecystic fluid. CBD: 5 mm. Right kidney: No hydronephrosis. IMPRESSION: 1. Cholelithiasis. No gallbladder wall thickening. 2. Normal caliber common bile duct. 3. Hepatic steatosis. ACT 112: Negative or not required by law. Electronically signed by: Adán Peña M.D. 04/12/2021 8:21 PM Cholangiopancreatography MRI 04/12/21 16:49 MRCP CLINICAL HISTORY: elevated LFTs TECHNIQUE: Utilizing a 1.5 Galina magnet and dedicated coil, multiplanar, multiecho imaging of the upper abdomen was performed utilizing heavily T2 weighted pulsing sequences without IV contrast. COMPARISON STUDY: CT of the abdomen and pelvis and right upper quadrant ultrasound April 12, 2021. FINDINGS: Small bilateral pleural effusions, right larger left, are incidentally noted. There is mild splenomegaly. No hepatic lesions are identified on this unenhanced examination. There is no intra or extrahepatic biliary ductal dilatation. Common bile duct measures 4 mm in caliber. Sensitivity for detection of common bile duct calculi is diminished given motion artifact on the 3-D MRCP sequence however none are identified. The caliber of the main pancreatic duct is normal. There are multiple gallstones within the gallbladder. There is no pericholecystic fluid is no peripancreatic fluid. No peripancreatic fluid collection is present. 3.4 cm T2 hyperintense lesion arising from the lower pole of left kidney favors a cyst. There is no hydronephrosis. Caliber of visualized small and large bowel are normal. IMPRESSION: 1. Cholelithiasis. No evidence for acute cholecystitis. 2. No biliary ductal dilatation. Decreased sensitivity for detection of common bile duct calculi given motion artifact but none identified. 3. Mild splenomegaly. ACT 112: Negative or not required by law. Electronically signed by: Sy Benito M.D. 04/13/2021 8:09 AM Orbit X-Ray 04/12/21 18:39 ORBIT RADIOGRAPHS 3 VIEWS HISTORY: pre-MRI screening. COMPARISON: None. FINDINGS: There are no radiopaque foreign bodies identified within the orbits. IMPRESSION: No radiopaque foreign bodies identified within the orbits. ACT 112: Negative or not required by law. Electronically signed by: Adán Peña M.D. 04/12/2021 7:57 PM Hospital Course (1) Cholelithiasis: Elliot is a 70-year-old male who presents with decreased appetite, abdominal bloating, elevated bilirubin, and elevated LFTs and imaging consistent with gallstones - MRCP with cholelithiasis but no evidence of acute cholecystitis; no biliary ductal dilatation; decreased sensitivity for detection of CBD calculi given motion artifact but none identified; mild splenomegaly - S/P EUS/Lap Kisha on 04/13 -- Doing well post-operatively. Bilirubin in WNL; LFTs still slightly elevated which is to be expected given recent surgery -- Tolerating a diet without issue - presenting symptoms improved since surgery - Stopped Abx - Utilized Rocephin 2 g IV daily and Flagyl 500 mg Q8H - no infectious etiology to support ongoing Abx usage - Hypokalemia due to poor oral intake/diarrhea - improved - GI/Surgery following - appreciate assistance -- Cleared for D/C from surgical perspective - F/U in 2 weeks in gen surg clinic (2) HTN (hypertension): - BP acceptable Amlodipine 5 mg daily and Lisinopril 20 mg daily; Indapamide 1.25 mg daily (3) Obstructive sleep apnea: CPAP nightly as needed (4) Fever: Currently afebrile - Gen Surg F/U in clinic Total Time Total Time Spent Total Time Spent (In Minutes): Spent greater than 30 minutes preparing patient for discharge. This includes discussion with patient/family, assessment, intervention, medication reconciliation, and coordination of care. Discharge Plan Discharge Items Patient Disposition: Home - Self-Care Reason For Visit: CHOLEDOCOLITHIASIS Discharge Diagnosis: Cholelithiasis (Gall Stones) Activity: As commented below Activity Comment: No heavy lifting or strenuous activity for 2 weeks Lifting Comment: No lifting greater than 20 pounds for 2 weeks Bathing Comment: You may shower, do not soak or scrub wound for 2 weeks Exercise/Sports: Gradually increase as tolerated Driving/Machine Use: Resume 3 days after discharge Non-emergency contact: Surgeon Call non-emergency contact if: you have any medication questions, your t emperature is above 101, your wound has increased redness, your wound has increased drainage and your wound pain has increased Follow-up/Referrals: Singh Alaniz MD [Primary Care Provider] - 04/24/21 3:15 pm Justin Kline DO, FACS [Physician] - Diet: Regular Addtl Attending Provider Instructions: Cholelithiasis (Gall Stones) - You were found to have gall stones and had your gallbladder removed. It is hard to say if this was the culprit of your bloating but could have been impeding proper digestion due to a malfunctioning gallbladder. Especially since your symptoms have been improving. - You have good bowel sounds but do recommend to keep walking and staying active as this helps keep the bowels regular. Anyone that has surgery needs to watch for what is called and ileus. If you stop passing gas or start getting nausea, call your surgeon or get evaluated. Anesthesia and surgery can sometimes cause a temporary slowing of bowel activity which typically resolves with just some bowel rest. - The general surgeon would like to see you in their clinic in 2 weeks for a post-operative check-up. - You may use Ibuprofen for pain control. Will prescribed Tramadol as well to control more severe pain. Thankfully pain tends to resolve pretty quickly after a gallbladder surgery. May be a bit sore but should be a bit better each day. - You can eat a regular diet. Would try to avoid overly fatty foods for a couple weeks and can slowly have them back in your diet. Now that you do not have a gallbladder, your liver will just drop bile into your intestines and sometimes people get diarrhea. Home Medications: - You may continue your home medications as previously prescribed. We did not make adjustments to these Pending Studies at Discharge: Yes Studies:: Pathology of gallbladder Stand-Alone Forms: My [facility], Smoking Cessation Medications and DC Order Prescriptions: New tramadol 50 mg Tablet 50 mg PO Q4H PRN (Reason: pain) 3 Days Qty: 18 RF: 0 Continued tadalafil 20 mg tablet 20 mg PO DAILY PRN (Reason: sexual activity) Qty: 10 RF: 3 indapamide 1.25 mg tablet 1.25 mg PO DAILY Qty: 90 RF: 3 amlodipine 5 mg tablet 5 mg PO DAILY Qty: 90 RF: 3 atorvastatin 10 mg tablet 10 mg PO DAILY Qty: 90 RF: 3 cetirizine 10 mg capsule 10 mg PO DAILY PRN (Reason: SEASONAL ALLERGIES) Qty: 90 RF: 0 epinephrine [EpiPen 2-Sukumar] 0.3 mg/0.3 mL auto-injector 0.3 mg IM Q10M PRN (Reason: bronchodilation) Qty: 2 RF: 0 lisinopril 20 mg tablet 20 mg PO BID RF: 0 Discharge Orders: Discharge Order (Routine); Ordered 04/15/21 Ordered By: Seble Barrett Admission Data Admit Date/Time: 04/12/21 14:42 Attending Provider: Elliot Garcia Admit Provider: Singh Hanna Primary Care Provider: Singh Alaniz Other Providers: Singh Hanna ; Mannie Parker ; Justin Kline Other Interventions: Discharge Summary Assessment (RN) Last Done: 04/15/21 12:52 Supervising Physician Co-Signing Physician Notes Attending note: patient seen and examined with Seble Barrett PA-C. I agree with her discharge summary. I personally reviewed the labs and imaging findings. patient feeling much better, no pain, no nausea, eating regular diet - Cholelithiasis, symptomatic: s/p cholecystectomy no evidence of choledocholithiasis discharge to home, follow up with general surgery in 2 weeks Coding Level of Care Code D/C DAY MANAGEMENT >30 MINS Diagnoses Cholelithiasis K80.20 HTN (hypertension) I10 Obstructive sleep apnea G47.33 Fever R50.9
== END 2021-04-15 14:26 | disposition home or self-care (01) | DRG 419 ==
LOC: 3E 10:23 → ED 10:23 → OBSVTOIN 15:09 → SUATTDRO 15:09